=== PATIENT | female | born 1965 | race Two or more races ===

== ENCOUNTER 2020-10-08 12:23 | Outpatient (REF) | payer MEDICAID, SELFPAY ==
--- NOTE | 2020-10-08 12:33 | XR_ITS ---
EXAMINATION: XR ELBOW, LEFT CLINICAL INFORMATION: Left elbow pain. COMPARISON: None TECHNIQUE: AP, lateral, and oblique views of the left elbow. FINDINGS: The bones and soft tissues are normal. No fracture or joint effusion. Alignment is anatomic. Joint spaces are maintained. XR/XR elbow LT min 3V IMPRESSION: Normal left elbow.
== END 2020-10-08 12:24 | disposition home or self-care (01) ==
LOC: HO.XRAY 12:23
PROVIDERS: PCP Internal Medicine; Visit Provider Emergency Medicine
DX: M25.522 Pain in left elbow (principal)
CPT/HCPCS: 73080

== ENCOUNTER → 2020-10-19 08:02 | Outpatient (REF) | payer MEDICAID, SELFPAY | LOC: HO.SL 08:02 | PROVIDERS: Visit Provider Physician Assistant Medical | DX: R40.0 Somnolence (principal) | CPT/HCPCS: 95806 ==

== ENCOUNTER 2020-11-09 10:18 | Outpatient (REF) | payer MEDICAID, SELFPAY ==
--- NOTE | 2020-11-09 | XR_ITS ---
EXAMINATION: XR KNEE, LEFT CLINICAL INFORMATION: Pain COMPARISON: Previous x-ray April and May 2020 TECHNIQUE: Four views of the left knee. FINDINGS: Bone alignment is normal. No fracture or dislocation is seen. There are small osteophytes at the medial femoral tibial and patellofemoral joints. There is a small osteophyte at the quadriceps tendon insertion to the patella. There is no joint effusion. XR/XR knee LT 4V IMPRESSION: Mild degenerative changes.
== END 2020-11-09 10:19 | disposition home or self-care (01) ==
LOC: HO.XRAY 10:18
PROVIDERS: PCP Internal Medicine; Visit Provider Internal Medicine
DX: M25.562 Pain in left knee (principal)
CPT/HCPCS: 73564

== ENCOUNTER 2020-11-29 11:50 | Emergency (ER) | payer MEDICAID, SELFPAY ==
--- NOTE | 2020-11-29 12:29 | ED.FALL ---
HPI - Fall General Chief Complaint: Back Pain/Injury Stated Complaint: back pain Time Seen by Provider: 11/29/20 12:29 History of Present Illness HPI Narrative: Patient slipped and fell on the ice on the sidewalk and fell hitting her left knee and hurting her lower back, no numbness no weakness no paresthesias, she did not hit her head, she did not have any loss of consciousness she is not on any blood thinners and she has no neck pain Related Data Previous Rx's Medication Instructions Recorded cyclobenzaprine 5 mg PO TID PRN #10 tab 11/29/20 Allergies Allergy/AdvReac Type Severity Reaction Status Date / Time Penicillins Allergy Severe RASH, Unverified 08/05/20 17:46 SWELLING penicillin V Allergy Unknown rash Verified 09/18/18 00:00 Review of Systems Review of Systems: Positive for low back pain and left knee pain negatives are no head injury no headache no nausea no dizziness, no preceding symptoms, no fainting or feeling faint, no numbness no weakness no paresthesias no chest pain no abdominal pain no urinary symptoms no changes to bowel or bladder no incontinence PMFSH Past Medical History Medical History (Updated 11/30/20 @ 00:01 by Background Danoe) HTN (hypertension) Hypoglycemia Social History Social History Advance Directives: No Advance Directives Information Provided: Yes Physical Exam Vital Signs: Vital Signs: Last Vital Signs Temp 98.7 F 11/29/20 12:31 Pulse 77 11/29/20 12:31 Resp 16 11/29/20 12:31 BP 146/72 H 11/29/20 12:31 Pulse Ox 96 11/29/20 12:31 Body Mass Index 32.5 General appearance a and O x3, comfortable, cooperative The head is normocephalic atraumatic The neck is supple and nontender The chest is clear to auscultation bilaterally and chest wall is nontender The abdomen is soft nontender The back had diffuse lower lumbar tenderness, no focal bony tenderness no CVA tenderness The extremities there was tenderness to diffusely around the left knee joint which had a good range of motion flexing to 90 extending to 180 no obvious effusion no deformity, patient could do a straight leg raise no evidence of quadriceps or patellar tendon injury, patient could walk with the assistance of her cane which she uses at baseline Neuro no focal deficits, motor is 5/5 x4 and sensation is intact and symmetrical Course Course Course Narrative: X-rays of left knee and lower back did not reveal any acute emergent finding, there was some arthritis in the left knee Discharge Plan Discharge Clinical Impression: Strain of lumbar region, Contusion of knee, left Patient Disposition: Home, Self-Care Additional Instructions: X-rays of left knee and back did not show any broken bones but they did show arthritis of the left knee so follow with orthopedic doctor Return any concerns Prescriptions: New cyclobenzaprine 5 mg tablet 5 mg PO TID PRN (Reason: muscle spasm) Qty: 10 RF: 0 Interventions: ED Discharge Assessment Last Done: 11/29/20 14:05 Discharge Date/Time: 11/29/20 14:06
--- NOTE | 2020-11-29 12:30 | XR_ITS ---
EXAMINATION: LEFT KNEE. LUMBAR SPINE. CLINICAL INFORMATION: Fall. Pain. COMPARISON: None TECHNIQUE: 4 views left knee. Lumbar spine 3 views.. FINDINGS: LEFT KNEE: There is loss of medial and patellofemoral compartment joint space with periarticular spurring. There is mild superior patellar spurring. There is no visible acute fracture, dislocation or subluxation. No joint suprapatellar effusion seen. LUMBAR SPINE: There is normal lumbar lordosis. The the vertebral heights and alignment is normal. The disc heights are preserved. No fracture, lytic or sclerotic process seen. The paravertebral soft tissues are normal. XR/XR knee LT 3V IMPRESSION: Mild degenerative changes medial and patellofemoral compartments with periapical spurring. No loose bodies or acute fracture seen.
--- NOTE | 2020-11-29 12:30 | XR_ITS ---
EXAMINATION: LEFT KNEE. LUMBAR SPINE. CLINICAL INFORMATION: Fall. Pain. COMPARISON: None TECHNIQUE: 4 views left knee. Lumbar spine 3 views.. FINDINGS: LEFT KNEE: There is loss of medial and patellofemoral compartment joint space with periarticular spurring. There is mild superior patellar spurring. There is no visible acute fracture, dislocation or subluxation. No joint suprapatellar effusion seen. LUMBAR SPINE: There is normal lumbar lordosis. The the vertebral heights and alignment is normal. The disc heights are preserved. No fracture, lytic or sclerotic process seen. The paravertebral soft tissues are normal. XR/XR lumbar spine 2-3V IMPRESSION: Mild degenerative changes medial and patellofemoral compartments with periapical spurring. No loose bodies or acute fracture seen.
[2020-11-29 12:31] VITALS: BP 146/72; BP 176/78; PULSE 77; PULSE 96; RESP 16; TEMP 37.1; O2SAT 96; BMI 32.5
== END 2020-11-29 14:06 | disposition home or self-care (01) ==
PROVIDERS: Emergency Provider Emergency Medicine
DX: S39.012A Strain of muscle, fascia and tendon of lower back, initial encounter (principal); S80.02XA Contusion of left knee, initial encounter; W00.0XXA Fall on same level due to ice and snow, initial encounter; M17.12 Unilateral primary osteoarthritis, left knee; I10 Essential (primary) hypertension; Y93.89 Activity, other specified; Y92.480 Sidewalk as the place of occurrence of the external cause; Y99.9 Unspecified external cause status
CPT/HCPCS: 72100; 73562; 99283

== ENCOUNTER 2020-12-13 09:00 | Outpatient (RCR) | payer MEDICAID, SELFPAY ==
--- NOTE | 2020-11-09 10:04 | MHC.PT.EP ---
[facility] [place] [facility] [place] [facility] [address] Alana Massey [address] [phone] F: [phone] F: [phone] F: [phone] F: [phone] Physical Therapy Plan of Care Date of Evaluation: 11/09/20 Date of Surgery: Diagnosis: Chronic pain of left knee Assessment: 55 y/o F referred to PT with chronic L knee pain. She has had L knee pain > 11 years of insidious onset. She ambulates with SPC for 5 years and ascend/descends stairs in step-tp pattern. 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 Reports pain with transitional movements, walking, stairs, sleeping, and functional mobility. Examination shows decreased L knee AROM, decreased lumbar AROM, decreased B LE strength, increased pain, tenderness to light touch throughout L knee, and poor functional mobility. Recommend PT 2x/week for 5 weeks to address impairments, implement HEP, and optimize funcitonal mobility. POC to include LE A/AAROM, strengthening, gait training, functional mobility, and pain management. Frequency and Duration: The patient will be seen 2x/week for 5 weeks Short Term Goals: 3 weeks: 1. I with HEP 2. Demonstrate L knee AROM 0-5-115 Penitentiary Goals: 5 weeks: 1. Pt will be able to ascend stairs in step through pattern with rail and SPC 2. Pt will demonstrate improved gait pattern with normal LAKESHA, heel strike B, and L knee flexion during L swing Treatment Plan: Modalities to reduce pain, spasms and effusion. Manual therapy to restore motion and function. Therapeutic exercise to improve strength and flexibility. Neuromuscular re-education for posture and balance. Therapeutic activities to return to functional activities of daily living. Electronically signed by: Massiel Coronado PT Please sign and return to therapist. Thank you for your referral.
== END 2020-12-22 11:54 | disposition other institution (70) ==
LOC: HO.PT 09:00
PROVIDERS: PCP Internal Medicine; Visit Provider Internal Medicine
DX: M25.562 Pain in left knee (principal); G89.29 Other chronic pain
CPT/HCPCS: 97110; 97162; 97530

== ENCOUNTER 2021-02-19 09:53 | Emergency (ER) | payer MEDICAID, SELFPAY ==
--- NOTE | ~2021-02-19 | XR_ITS ---
EXAMINATION: XR knee RT 4V CLINICAL INFORMATION: Reason for Exam pain COMPARISON: None available at the time of this dictation. TECHNIQUE: Frontal lateral obliques FINDINGS: BONES: No fracture or dislocation is present. JOINTS: Narrowing of joint spaces and developed osteophytes from the edges of articular surfaces suggest degenerative osteoarthritis. SOFT TISSUE: Normal XR/XR knee RT 4V IMPRESSION: Mild degenerative osteoarthritis medial compartment. No knee joint effusion.
[2021-02-19 10:04] VITALS: BP 131/87; PULSE 102; PULSE 92; RESP 17; TEMP 36.3; O2SAT 96; BMI 30.9
--- NOTE | 2021-02-19 10:37 | ED.GENADULT ---
HPI - General Adult General Chief complaint: Back Pain/Injury Stated complaint: knee pain Time Seen by Provider: 02/19/21 10:23 History of Present Illness HPI narrative: Patient complains of right knee pain for several days and now her back is hurting a lot too, she has a long history of intermittent episodes of back pain and knee pain, there is no new injury there was no trauma no fever no chills no numbness no weakness no radiation of her back pain and no change to bowel or bladder Related Data Previous Rx's Medication Instructions Recorded cyclobenzaprine 5 mg PO TID PRN #10 tab 11/29/20 ibuprofen 600 mg PO Q6H PRN #20 tab 02/19/21 oxycodone-acetaminophen [Percocet] 1 tab PO Q6H PRN #14 tab 02/19/21 Allergies Allergy/AdvReac Type Severity Reaction Status Date / Time Penicillins Allergy Severe RASH, Verified 02/19/21 10:09 SWELLING penicillin V Allergy Unknown rash Verified 02/19/21 10:09 Review of Systems Review of Systems: Positive for right back and right knee pain Negatives are no fever no chills no dizziness no weakness no numbness weakness or tingling, no changes to bowel or bladder no chest pain no abdominal pain no burning with urination no frequency of urination no incontinence no rash, no loss of sensation Yes all other systems are reviewed and are negative [facility] Past Medical History Source: nursing notes reviewed Medical History (Updated 02/20/21 @ 00:01 by Background Daemon) HTN (hypertension) Hypoglycemia Physical Exam Vital Signs: Vital Signs: Last Vital Signs Temp 97.3 F 02/19/21 10:04 Pulse 92 02/19/21 10:04 Resp 17 02/19/21 11:41 BP 131/87 02/19/21 10:04 Pulse Ox 96 02/19/21 10:04 Body Mass Index 30.9 General appearance no acute distress,, and cooperative Head is normocephalic atraumatic The neck is supple and nontender Respiratory no distress The back had right sided soft tissue paraspinal tenderness, skin was normal in appearance, there is no bony tenderness no CVA tenderness no redness or warmth no herpetic lesion no rash Right knee is tender but not swollen not red or warm it extends to 180 at flexes past 90, gait she walks with a limping gait Skin no rash Neuro no focal deficit Course Course Course Narrative: X-ray of the right knee confirmed osteoarthritis no acute finding, lumbar spine x-ray from previous visit 3 months ago showed some arthritis in the back but again no acute findings and as there is no new injury or trauma between these visits no further back imaging was done Patient is advised her back pain might be aggravated by the limping gait and is advised to follow with orthopedist and primary doctor Discharge Plan Discharge Clinical Impression: Osteoarthritis of right knee, Back strain Patient Disposition: Home, Self-Care Additional Instructions: Follow with primary doctor for back pain and orthopedist for the knee X-ray showed arthritis Return any time any concerns Prescriptions: New oxycodone-acetaminophen [Percocet] 5-325 mg tablet 1 tab PO Q6H PRN (Reason: pain) Qty: 14 RF: 0 ibuprofen 600 mg tablet 600 mg PO Q6H PRN (Reason: pain) Qty: 20 RF: 0 No Action cyclobenzaprine 5 mg tablet 5 mg PO TID PRN (Reason: muscle spasm) Qty: 10 RF: 0 Referrals: Rafi Parham MD [Physician] - 2 days (Right knee arthritis pain, possible steroid shot) Interventions: ED Discharge Assessment Last Done: 02/19/21 12:07 Discharge Date/Time: 02/19/21 12:09
[2021-02-19] MEDS: Ketorolac Tromethamine 30 MG/ML VIAL IM (10:54)
[2021-02-19] MEDS: LORazepam 1 MG TABLET PO (10:55)
[2021-02-19] MEDS: oxyCODONE HCl Immed Release 5 MG TABLET PO ×2 (10:55)
--- NOTE | 2021-02-19 11:12 | PC.NURSE ---
PT USING VIDEO ON PHONE TALKING WITH FAMILY MEMBERS AND LAUGHING AT TIMES. SEVERAL MINUTES LATER WHEN THIS RN WALKS BY ROOM, PT IS MOANING AND YELLING OUT LOUD I NEED SOME JUICE. PO FLUIDS PROVIDED.
[2021-02-19 11:40] VITALS: RESP 17
[2021-02-19 11:41] VITALS: RESP 17
== END 2021-02-19 12:09 | disposition home or self-care (01) ==
PROVIDERS: Emergency Provider Emergency Medicine; PCP Internal Medicine
DX: M17.11 Unilateral primary osteoarthritis, right knee (principal); S39.012A Strain of muscle, fascia and tendon of lower back, initial encounter; X58.XXXA Exposure to other specified factors, initial encounter; Y93.9 Activity, unspecified; Y92.9 Unspecified place or not applicable; Y99.9 Unspecified external cause status
CPT/HCPCS: 73564; 96374; 99284; J1885

== ENCOUNTER 2021-03-11 07:32 | Outpatient (REF) | payer MEDICAID, SELFPAY ==
--- NOTE | ~2021-03-11 | XR_ITS ---
EXAMINATION: XR KNEE, BILATERAL XR KNEE, RIGHT CLINICAL INFORMATION: Knee pain. COMPARISON: X-ray right knee 02/19/2021 TECHNIQUE: Bilateral knees 1 view. Right knee 1 view. FINDINGS: Right knee: Mild medial compartment arthritis. Mild spurring in the patellofemoral compartment. No fracture or dislocation. Left knee: Mild medial compartment arthritis. Marginal spurring in the lateral compartment. XR/XR knee standing BI IMPRESSION: Right knee: Mild medial compartment osteoarthritis. Left knee: Osteoarthritic changes, as above.
--- NOTE | ~2021-03-11 | XR_ITS ---
EXAMINATION: XR KNEE, BILATERAL XR KNEE, RIGHT CLINICAL INFORMATION: Knee pain. COMPARISON: X-ray right knee 02/19/2021 TECHNIQUE: Bilateral knees 1 view. Right knee 1 view. FINDINGS: Right knee: Mild medial compartment arthritis. Mild spurring in the patellofemoral compartment. No fracture or dislocation. Left knee: Mild medial compartment arthritis. Marginal spurring in the lateral compartment. XR/XR knee RT 2V IMPRESSION: Right knee: Mild medial compartment osteoarthritis. Left knee: Osteoarthritic changes, as above.
== END 2021-03-11 07:33 | disposition home or self-care (01) ==
LOC: HO.HOSX 07:32
PROVIDERS: Visit Provider Physician Assistant
DX: M25.562 Pain in left knee (principal); M25.561 Pain in right knee; M17.11 Unilateral primary osteoarthritis, right knee
CPT/HCPCS: 20610; 73560; 73565; 99202; J1040

== ENCOUNTER 2021-05-31 09:57 | Outpatient (REF) | payer MEDICAID, SELFPAY ==
--- NOTE | ~2021-05-31 | MM_ITS ---
EXAMINATION: MM SCREENING DIGITAL BREAST TOMOSYNTHESIS, BILATERAL CLINICAL INFORMATION: Screening. Asymptomatic. Prior right stereotactic biopsy 2008, mid 6:00 right breast, no clip placement. The lifetime risk of breast cancer based on the Tyrer-Cuzick Model is 6%. COMPARISON: Mammography: 07/11/2018, 12/02/2015, 05/11/2014 TECHNIQUE: Digital breast tomosynthesis is performed in both the craniocaudal and mediolateral oblique views along with computer-aided detection (CAD). Synthesized 2D images are generated from the tomosynthesis. FINDINGS: There are scattered areas of fibroglandular density (ACR BI-RADS breast composition Category b). There are no significant masses, abnormal calcifications, or other abnormalities. No developing density. There are stable grouped punctate calcifications mid 6:00 right breast, previously sampled in 2008 (no clip placement). The axilla and skin contours are unremarkable. MM/MM tomosynthesis screening BI IMPRESSION: No mammographic evidence of malignancy. ASSESSMENT: BI-RADS 2: Benign RECOMMENDATION: Routine annual mammography screening. This patient's information was entered into a reminder system with a target due date for their next mammogram.
== END 2021-05-31 09:58 | disposition home or self-care (01) ==
LOC: HO.MAMMO 09:57
PROVIDERS: Visit Provider Internal Medicine
DX: Z12.31 Encounter for screening mammogram for malignant neoplasm of breast (principal)
CPT/HCPCS: 77063; 77067

== ENCOUNTER → 2022-08-07 13:56 | Outpatient (BNVA) | payer MEDICAID, SELFPAY | PROVIDERS: PCP Internal Medicine; Visit Provider Physician Assistant | DX: M17.0 Bilateral primary osteoarthritis of knee (principal) | CPT/HCPCS: 99212 ==

== ENCOUNTER 2022-10-16 11:26 | Outpatient (REF) | payer MEDICAID, SELFPAY ==
--- NOTE | ~2022-10-16 | XR_ITS ---
EXAMINATION: XR FOOT, LEFT CLINICAL INFORMATION: Pain COMPARISON: None TECHNIQUE: AP, lateral, and oblique views of the left foot. FINDINGS: Bone alignment is normal. No fracture or dislocation. Normal joint spaces. Soft tissue calcification adjacent to the first metatarsal head. Small plantar calcaneal spur. XR/XR foot LT min 3V IMPRESSION: Small plantar calcaneal spur and soft tissue calcification adjacent to the first metatarsal head.
== END 2022-10-16 11:27 | disposition home or self-care (01) ==
LOC: HO.XRAY 11:26
PROVIDERS: Visit Provider Nurse Practitioner Family
DX: M17.0 Bilateral primary osteoarthritis of knee (principal); M79.672 Pain in left foot
CPT/HCPCS: 73630; 99202

== ENCOUNTER 2022-11-16 06:37 | Emergency (ER) | payer MEDICAID, SELFPAY ==
--- NOTE | ~2022-11-16 | XR_ITS ---
EXAMINATION: XR CHEST CLINICAL INFORMATION: Chest pain COMPARISON: None TECHNIQUE: Frontal view of the chest was obtained. FINDINGS: No significant abnormality is noted involving the heart, lungs, mediastinum, bony thorax or soft tissues. XR/XR chest 1V IMPRESSION: Unremarkable chest examination.
[2022-11-16 06:41] VITALS: BP 178/90; PULSE 118; O2SAT 98
[2022-11-16 07:03] VITALS: BP 143/89; PULSE 123; RESP 16; TEMP 36.8; O2SAT 98; BMI 33.7
--- NOTE | 2022-11-16 07:05 | ECG_ITS ---
Test Reason : CHEST PAIN Blood Pressure : / mmHG Vent. Rate : 113 BPM Atrial Rate : 113 BPM P-R Int : 118 ms QRS Dur : 080 ms QT Int : 326 ms P-R-T Axes : 067 044 054 degrees QTc Int : 447 ms Sinus tachycardia Biatrial enlargement Nonspecific ST abnormality Abnormal ECG When compared with ECG of 16-SEP-2019 00:27, Non-specific change in ST segment in Inferior leads Referred By: Generic ED Physician Electronically Signed By:ROBERT PECK MD
[2022-11-16 07:24] LABS: Hematocrit 45.6 % (37.0-47.0); Hemoglobin 15.3 g/dl (12.0-16.0); Mean Corpuscular HGB Conc 33.6 g/dl (31.0-35.0); Mean Corpuscular Hemoglobin 30.9 pg (27.0-33.0); Mean Corpuscular Volume 92.1 fL (80.0-98.0); Mean Platelet Volume 10.2 fL (9.4-12.3); Platelet Count 286 X10*3/uL (160-400); Red Blood Count 4.95 X10*6/uL (4.20-5.50); Red Cell Distribution Width 12.6 % (11.0-16.0)
[2022-11-16 07:28] LABS: WBC ABN SCTR FOR CBC 1; White Blood Count 10.5 X10*3/uL (4.8-10.8)
--- NOTE | 2022-11-16 07:35 | ED_ITS ---
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 She has had a positive sick contact. Related Data Home Medications Medication Instructions Recorded Confirmed aspirin 325 mg tablet 325 mg PO DAILY 03/11/21 atorvastatin 10 mg tablet 10 mg PO DAILY 03/11/21 aripiprazole 10 mg tablet 10 mg PO QAM 08/07/22 aspirin 81 mg tablet,delayed 81 mg PO DAILY 08/07/22 release atorvastatin 40 mg tablet 40 mg PO DAILY 08/07/22 cholecalciferol (vitamin D3) 25 25 mcg PO DAILY 08/07/22 mcg (1,000 unit) tablet clonazepam 1 mg tablet 1 mg PO BEDTIME 08/07/22 diltiazem HCl 240 mg 240 mg PO DAILY 08/07/22 capsule,extended release 24 hr docusate sodium 100 mg capsule 100 mg PO BID 08/07/22 fluticasone propionate 110 1 puff inhalation BID 08/07/22 mcg/actuation HFA aerosol inhaler (Flovent HFA) fluticasone propionate 50 2 spray intranasal DAILY 08/07/22 mcg/actuation nasal spray,suspension losartan 50 mg tablet 50 mg PO DAILY 08/07/22 omeprazole 20 mg capsule,delayed 20 mg PO DAILY 08/07/22 release spironolactone 100 mg tablet 100 mg PO DAILY 08/07/22 08/07/22 sumatriptan succinate 100 mg tablet 0 mg PO 08/07/22 albuterol sulfate 90 mcg/actuation 2 puff inhalation Q6H PRN wheezing 10/16/22 aerosol inhaler (Proventil HFA) Previous Rx's Medication Instructions Recorded benzonatate 200 mg capsule 200 mg PO TID PRN cough #20 caps 11/16/22 Allergies Allergy/AdvReac Type Severity Reaction Status Date / Time Penicillins Allergy Severe RASH, Verified 10/16/22 10:56 SWELLING penicillin V Allergy Unknown rash Verified 10/16/22 10:56 Review of Systems Review of Systems: Pertinent positives and negatives as stated in HPI. PMFSH Past Medical History Source: nursing notes reviewed Medical History HTN (hypertension) Hypoglycemia Surgical History H/O: hysterectomy Social History Social History Advance Directives: No Advance Directives Information Provided: Yes Current occupational status: disabled Current occupation: right handed Physical Exam ED Vital Signs: Vital Signs - 24 hr 11/16/22 07:03 Temperature 98.2 F Pulse Rate 123 H Respiratory Rate 16 Blood Pressure 143/89 H Pulse Oximetry 98 Oxygen Delivery Method Room Air BMI result Body Mass Index 33.7 VITAL SIGNS: Reviewed. GENERAL: Well developed, well nourished, in no acute distress. HEAD: Normocephalic/atraumatic EYES: PERRLA, EOMI EARS: Ext canals without abnormality, TMs non-bulging and non-erythematous NOSE: Nares patent bilateral OROPHARYNX: no oral lesions noted, posterior pharynx clear and non-erythematous without noted tonsillar enlargement/erythema/exudates NECK: Supple, no adenopathy LUNGS: Normal breath sounds. No adventitious sounds or accessory muscle use. SpO2<98> CARDIOVASCULAR: Regular rate and rhythm without noted murmurs, no JVD or lower extremity edema. ABDOMEN: Soft, non-tender, non-distended with bowel sounds. MUSCULOSKELETAL: No tenderness, deformities, or effusions noted on gross inspection. EXTREMITIES: No cyanosis, clubbing or edema. SKIN: Inspection of the skin reveals no rashes NEUROLOGIC: Alert and oriented x 3. Strength and sensation to light touch were grossly intact x 4. Medications Administered Discontinued Medications Generic Name Dose Route Start Last Admin Trade Name Freq PRN Reason Stop Dose Admin Acetaminophen 975 mg 11/16/22 07:58 11/16/22 08:03 Acetaminophen 325 Mg Tablet PO 11/16/22 07:59 975 mg ONCE ONE Administration Benzonatate 200 mg 11/16/22 07:58 11/16/22 08:03 Benzonatate 100 Mg Capsule PO 11/16/22 07:59 200 mg ONCE ONE Administration Ibuprofen 400 mg 11/16/22 07:58 11/16/22 08:03 Ibuprofen 400 Mg Tablet PO 11/16/22 07:59 400 mg ONCE ONE Administration Medical Decision Making Medical Decision Making [facility] Narrative: 57-year-old female with a positive sick contact in suspect that this is a viral illness but will obtain basic labs, imaging, EKG. 0906: Have reviewed all investigations, there is no leukocytosis or left shift, there is no electrolyte abnormality, renal function is intact there is a slight bump of patient's BNP and she will receive 40 mg of p.o. Lasix although there is no evidence on chest x-ray of pulmonary congestion on clinical exam there are findings suspicious for concomitant mild exacerbation with suspected underlying viral illness, otherwise patient is positive for COVID-19. She is oxygenating well on room air, she is not tachypneic but still remains with a cough and will be sent with a prescription for cough medication. She was informed of all results and plans. Differential Diagnosis I will rule out pneumonia, viral illness, cardiac etiology although this is less suspected. Lab Data MDM Lab Attestation statement: I reviewed the patient's lab results. Please see the discussion above Result Diagrams: 11/16/22 07:17 11/16/22 07:17 Labs: Lab Results 11/16/22 11/16/22 11/16/22 Range/Units 07:17 07:17 07:17 WBC 10.5 (4.8-10.8) X10*3/uL RBC 4.95 (4.20-5.50) X10*6/uL Hgb 15.3 (12.0-16.0) g/dl Hct 45.6 (37.0-47.0) % MCV 92.1 (80.0-98.0) fL MCH 30.9 (27.0-33.0) pg MCHC 33.6 (31.0-35.0) g/dl RDW 12.6 (11.0-16.0) % Plt Count 286 (160-400) X10*3/uL MPV 10.2 (9.4-12.3) fL Immature Gran % (Auto) Cancelled Neut % (Auto) Cancelled Lymph % (Auto) Cancelled [place] % (Auto) Cancelled Eos % (Auto) Cancelled Baso % (Auto) Cancelled Lymph # (Auto) Cancelled [place] # (Auto) Cancelled Eos # (Auto) Cancelled Baso # (Auto) Cancelled Abs Immat Gran (auto) Cancelled Absolute Neuts (auto) Cancelled Absolute Nucleated RBC 0.000 (0.0-0.012) X10*3/uL Nucleated RBC % (auto) 0.0 (0.0-0.2) /100WBC Neutrophils % (Manual) 83 H (45-73) % Band Neutrophils % 2 L (3-5) % Lymphocytes % (Manual) 3 L (20-40) % Monocytes % (Manual) 12 H (2-11) % Abs Neuts (Manual) 8.9 H (2.0-8.3) X10*3/uL Lymphocytes # (Manual) 0.3 L (1.2-4.9) X10*3/uL Monocytes # (Manual) 1.3 H (0.1-1.2) X10*3/uL Toxic Vacuolation PRESENT Platelet Estimate NORMAL (NORMAL) Plt Morphology Comment NORMAL RBC Morphology NORMAL Sodium 140 (135-145) mmol/L Potassium 4.2 (3.3-5.1) mmol/L Chloride 103 (96-108) mmol/L Carbon Dioxide 27 (22-29) mmol/L Anion Gap 14 (12-20) BUN 7 L (9-16) mg/dL Creatinine 0.99 (0.5-1.4) mg/dL Estim Creat Clear Calc 68.6 Estimated GFR 57 Random Glucose 134 H (60-115) mg/dL Calcium 9.3 (8.4-10.2) mg/dL B-Natriuretic Peptide (<100) pg/mL Influenza Type A (PCR) NEGATIVE (Negative) Influenza Type B (PCR) NEGATIVE (Negative) RSV RNA Qual (PCR) NEGATIVE (Negative) SARS-CoV-2 RNA (RT-PCR) POSITIVE A (Negative) 11/16/22 Range/Units 07:17 WBC (4.8-10.8) X10*3/uL RBC (4.20-5.50) X10*6/uL Hgb (12.0-16.0) g/dl Hct (37.0-47.0) % MCV (80.0-98.0) fL MCH (27.0-33.0) pg MCHC (31.0-35.0) g/dl RDW (11.0-16.0) % Plt Count (160-400) X10*3/uL MPV (9.4-12.3) fL Immature Gran % (Auto) Neut % (Auto) Lymph % (Auto) [place] % (Auto) Eos % (Auto) Baso % (Auto) Lymph # (Auto) [place] # (Auto) Eos # (Auto) Baso # (Auto) Abs Immat Gran (auto) Absolute Neuts (auto) Absolute Nucleated RBC (0.0-0.012) X10*3/uL Nucleated RBC % (auto) (0.0-0.2) /100WBC Neutrophils % (Manual) (45-73) % Band Neutrophils % (3-5) % Lymphocytes % (Manual) (20-40) % Monocytes % (Manual) (2-11) % Abs Neuts (Manual) (2.0-8.3) X10*3/uL Lymphocytes # (Manual) (1.2-4.9) X10*3/uL Monocytes # (Manual) (0.1-1.2) X10*3/uL Toxic Vacuolation Platelet Estimate (NORMAL) Plt Morphology Comment RBC Morphology Sodium (135-145) mmol/L Potassium (3.3-5.1) mmol/L Chloride (96-108) mmol/L Carbon Dioxide (22-29) mmol/L Anion Gap (12-20) BUN (9-16) mg/dL Creatinine (0.5-1.4) mg/dL Estim Creat Clear Calc Estimated GFR Random Glucose (60-115) mg/dL Calcium (8.4-10.2) mg/dL B-Natriuretic Peptide 108 H (<100) pg/mL Influenza Type A (PCR) (Negative) Influenza Type B (PCR) (Negative) RSV RNA Qual (PCR) (Negative) SARS-CoV-2 RNA (RT-PCR) (Negative) Independent Interpretation I performed an independent interpretation of an: EKG Interpretation: Sinus tachycardia, HR-113, no STEMI, ID/QRS/QTC are within normal limits with nonspecific ST abnormality. Discharge Plan Discharge Clinical Impression: Viral syndrome, Lab test positive for detection of COVID-19 virus, Pulmonary congestion Patient Disposition: Home, Self-Care Instructions: Viral Syndrome (ED), COVID-19 (Coronavirus Disease 2019) (ED) Additional Instructions: 1. Reanudar todos los medicamentos caseros seg?n lo prescrito. 2. Tiene COVID-19 y debe aislarse josé miguel los pr?ximos 5 d?as y luego seguir todas las pautas estatales/federales/CDC. 3. Mant?ngase shawanda hidratado, usando Tylenol/ibuprofeno de venta joo para johanna corporales, johanna de [place], temperaturas superiores a 100.4. 4. He enviado pelon receta para un medicamento para la tos a bar farmacia, t?lorie seg?n lo prescrito. 5. Seguimiento con bar proveedor de atenci?n primaria en los pr?ximos 2 o 3 d?as, probablemente a ary?s de pelon chantelle de telemedicina. Regrese a la venkatesh de emergencias si dimitri s?ntomas empeoran. 1. Resume all home medications as prescribed. 2. You have COVID-19 and must isolate for the next 5 days and then follow all state/Federal/CDC guidelines. 3. Remain well hydrated, using aiaj-hck-eyhzafv Tylenol/ibuprofen for body aches, headaches, temperatures greater than 100.4. 4. I have sent a prescription for cough medication to your pharmacy please take it as prescribed. 5. Follow-up with your primary care provider in the next 2-3 days, probably via telemedicine appointment. Return to the ER for any worsening of your symptoms. Prescriptions: New benzonatate 200 mg capsule 200 mg PO TID PRN (Reason: cough) Qty: 20 0RF No Action atorvastatin 10 mg tablet 10 mg PO DAILY aspirin 325 mg tablet 325 mg PO DAILY fluticasone propionate [Flovent HFA] 110 mcg/actuation HFA aerosol inhaler 1 puff inhalation BID fluticasone propionate 50 mcg/actuation spray,suspension 2 spray intranasal DAILY aripiprazole 10 mg tablet 10 mg PO QAM aspirin 81 mg tablet,delayed release (DR/EC) 81 mg PO DAILY docusate sodium 100 mg capsule 100 mg PO BID clonazepam 1 mg tablet 1 mg PO BEDTIME diltiazem HCl 240 mg capsule,extended release 24hr 240 mg PO DAILY sumatriptan succinate 100 mg tablet 0 mg PO atorvastatin 40 mg tablet 40 mg PO DAILY losartan 50 mg tablet 50 mg PO DAILY omeprazole 20 mg capsule,delayed release(DR/EC) 20 mg PO DAILY cholecalciferol (vitamin D3) 25 mcg (1,000 unit) tablet 25 mcg PO DAILY spironolactone 100 mg tablet 100 mg PO DAILY albuterol sulfate [Proventil HFA] 90 mcg/actuation HFA aerosol inhaler 2 puff inhalation Q6H PRN (Reason: wheezing) Referrals: [place] [Primary Care Provider] - Print Language: Panamanian
[2022-11-16 07:37] LABS: Anion Gap 14 (12-20); Blood Urea Nitrogen 7 mg/dL (9-16); Calcium 9.3 mg/dL (8.4-10.2); Carbon Dioxide 27 mmol/L (22-29); Chloride 103 mmol/L (96-108); Creatinine Clr Calc Pharmacy 68.6; Estimated Glomerular Filt Rate 57; Glucose Random 134 mg/dL (60-115); Potassium 4.2 mmol/L (3.3-5.1); Sodium 140 mmol/L (135-145)
[2022-11-16 07:51] LABS: Band Neutrophils Percent 2 % (3-5); Lymphocytes Absolute Manual 0.3 X10*3/uL (1.2-4.9); Lymphocytes Percent Manual 3 % (20-40); Monocytes Absolute Manual 1.3 X10*3/uL (0.1-1.2); Monocytes Percent Manual 12 % (2-11); Neutrophils Absolute Manual 8.9 X10*3/uL (2.0-8.3); Neutrophils Percent Manual 83 % (45-73)
[2022-11-16 07:52] LABS: Platelet Estimate NORMAL (NORMAL); Platelet Morphology Comment NORMAL; RBC Morphology NORMAL
[2022-11-16 07:53] LABS: Toxic Vacuolation PRESENT
[2022-11-16] MEDS: Ibuprofen 400 MG TABLET PO (08:03)
[2022-11-16] MEDS: Benzonatate 100 MG CAPSULE 200 MG PO (08:03)
[2022-11-16] MEDS: Acetaminophen 325 MG TABLET 975 MG PO (08:03)
[2022-11-16 08:09] LABS: Influenza A PCR NEGATIVE (Negative); Influenza B PCR NEGATIVE (Negative); Resp Syncy Virus RNA Qual PCR NEGATIVE (Negative); SARS COV2 PCR INHOUSE POSITIVE (Negative)
[2022-11-16 08:50] LABS: B Type Natriuretic Peptide 108 pg/mL (<100)
[2022-11-16] MEDS: Furosemide 40 MG TABLET PO (09:12)
[2022-11-16 09:17] VITALS: BP 162/82; PULSE 102; RESP 24; TEMP 37.4; O2SAT 98
[2022-11-16 09:47] LABS: Troponin-I High Sensitivity 3.7 ng/L (<3.5-17.0)
== END 2022-11-16 09:51 | disposition home or self-care (01) ==
PROVIDERS: Emergency Provider Student in an Organized Health Care Education/Training Program
DX: U07.1 COVID-19 (principal); R09.89 Other specified symptoms and signs involving the circulatory and respiratory systems; I10 Essential (primary) hypertension
CPT/HCPCS: 0241U; 71045; 80048; 83880; 84484; 85007; 85027; 93005; 99283; 99284

== ENCOUNTER → 2023-03-23 09:11 | Outpatient (BNVA) | payer MEDICAID, SELFPAY | PROVIDERS: PCP Internal Medicine; Visit Provider Internal Medicine ==

== ENCOUNTER 2023-05-02 06:04 | Outpatient (REF) | payer MEDICAID, SELFPAY | END 2023-05-02 06:05 | disposition home or self-care (01) | LOC: CF 06:04 | PROVIDERS: Visit Provider Internal Medicine | DX: M25.562 Pain in left knee (principal) | CPT/HCPCS: 64447; J1100 ==

== ENCOUNTER 2023-05-09 06:11 | Outpatient (REF) | payer MEDICAID, SELFPAY | END 2023-05-09 06:12 | disposition home or self-care (01) | LOC: CF 06:11 | PROVIDERS: Visit Provider Internal Medicine | DX: M25.561 Pain in right knee (principal) | CPT/HCPCS: 64447 ==

== ENCOUNTER → 2023-05-11 10:02 | Outpatient (BNVA) | payer MEDICAID, SELFPAY | PROVIDERS: PCP Internal Medicine; Visit Provider Nurse Practitioner Family | DX: M17.0 Bilateral primary osteoarthritis of knee (principal); M25.562 Pain in left knee; M25.561 Pain in right knee; M79.672 Pain in left foot | CPT/HCPCS: 99212 ==

== ENCOUNTER 2023-06-27 10:02 | Day surgery (SDC) | payer MEDICAID, SELFPAY ==
[2023-06-27 10:34] VITALS: BMI 33.6
[2023-06-27 10:43] VITALS: BP 167/80; PULSE 88; RESP 18; TEMP 36.1; O2SAT 98
[2023-06-27 11:57] VITALS: BP 144/78; PULSE 75; RESP 18; TEMP 36.4; O2SAT 98
--- NOTE | 2023-06-27 16:41 | P.BOP_ITS ---
Brief Operative Note Date of Service: 06/27/23 Pre-op diagnosis: Intractable right knee pain Post-op diagnosis: same Procedure: Temporary right saphenous nerve stimulator placement Implants: Sprint temporary PNS system Surgeon: Joe Hays MD Anesthesia: local Was an Instructor Military Science used for this Procedure?: No Estimated blood loss (mL): 1 Pathology: none sent Condition: stable Disposition: same day
--- NOTE | 2023-06-27 16:41 | MHC.SHP ---
Pre-Procedural Eval Section A Date of Service: 06/27/23 The patient is an INPATIENT: No Changes since office visit: Yes Patient answered all questions The History & Physical has been completed within 30 days and I have reviewed it.: No Section B Chief Complaint: Unilateral primary osteoarthritis, unspecified Relevant Family History (Specify if Yes): No Relevant Social History: None Present Medications: see Short Stay Collaborative assessment Medical History: No relevant PMH History of Previous Operations: No relevant previous surgery Allergies: Allergies Allergy/AdvReac Type Severity Reaction Status Date / Time Penicillins Allergy Severe RASH, Verified 05/11/23 10:20 SWELLING Review of Systems Sugical H&P ROS: Negative: Constitution, Cardiovascular and Respiratory Exam Surgical H&P Exam: Normal: HEENT, Normal: Heart and Normal: Lungs Plan Diagnosis/Plan: Unchanged I have reviewed the history and physical and performed a pertinent physical examination on my patient. No changes have occurred unless specified. Time Spent With Patient Time: Total time managing care of this patient today ____ minutes.
--- NOTE | 2023-06-27 16:42 | P.OP_ITS ---
Operative Note Operative Note Date of Service: 06/27/23 Narrative: Peripheral Nerve Stimulation Temporary Lead Placement, Ultrasound-Guided, Saphenous Nerve, right ? After the risks, benefits and alternatives were discussed with the patient and informed consentwas obtained, patient was placed in the supine position and padded to foster comfort. Appropriate skin and bony landmarks were identified, and pertinent vascular structures were located. The skin overlying the needle entry site was prepped and draped in sterile fashion. Ultrasound was used to identify the femoral artery, the femoral vein and the saphenous nerve. After identifying and marking the intended target along the course of the Saphenous nerve, the skin around the planned entry point and the subcutaneous tissues were injected with local anesthetic. An introducer needle and stimulating probe were assembled, inserted and advanced along the intended course of the saphenous; nerve, taking care to maintain the proper depth of insertion as the introducer was advanced under ultrasound guidance. The introducer needle was delivered to a location in proximity to the nerve taking care not to puncture the femoral artery or the vein. Multiple stimulation parameters were used to deliver stimulation to the saphenous nerve in concert with stimulating at multiple positions around the nerve. Nerve target acquisition was confirmed noting generation of sensory and mild motor effects (paresthesia, muscle tension, etc) in the medial knee, leg and ankle; corresponding to the distribution of the saphenous nerve. Various electrical parameter combinations were tested, and the lead location was adjusted (physic ally relocated under ultrasound guidance) until the patient indicated medial knee paresthesia and tension overlapping the distribution of the patient?s typical region of pain. The stimulating probe was removed from the introducer and a percutaneous lead was guided through the needle and delivered to a location in similar proximity to the nerve. Final location was verified with electrical stimulation and documented. The introducer needle was removed, and the exposed end of the percutaneous lead was attached to an external stimulator unit. Various electrical parameter combinations were again tested until the patient indicated paresthesia and muscle tension overlapping the distribution of the patient?s typical region of pain. After confirming that lead impedance was in the normal range, the external unit was detached, the needle was removed, and the lead was anchored at the skin. The lead was threaded into the connector block and electrical continuity and desired patient response was confirmed. The connector block was attached to the external stimulator unit. The site was covered with a sterile occlusive dressing. A final ultrasound image was taken to document final placement. The patient was observed for stability of vital signs and comfort.
== END 2023-06-27 12:25 | disposition home or self-care (01) ==
PROVIDERS: PCP Internal Medicine; Visit Provider Internal Medicine
PROC: (CPT 64555; principal; 2023-06-27 10:30)
DX: M25.561 Pain in right knee (principal); M17.11 Unilateral primary osteoarthritis, right knee; G89.29 Other chronic pain; R60.9 Edema, unspecified; I10 Essential (primary) hypertension; J45.20 Mild intermittent asthma, uncomplicated; E16.2 Hypoglycemia, unspecified; Z79.899 Other long term (current) drug therapy; Z88.0 Allergy status to penicillin
CPT/HCPCS: 64555; C1778

== ENCOUNTER → 2023-06-27 10:02 | Outpatient (BNV) | payer MEDICAID, SELFPAY | PROVIDERS: PCP Internal Medicine; Visit Provider Internal Medicine | DX: M25.561 Pain in right knee (principal) | CPT/HCPCS: 64555 ==

== ENCOUNTER → 2023-07-04 09:23 | Outpatient (BNVA) | payer MEDICAID, SELFPAY | PROVIDERS: PCP Internal Medicine; Visit Provider Registered Nurse Emergency | DX: Z48.01 Encounter for change or removal of surgical wound dressing (principal); Z96.89 Presence of other specified functional implants | CPT/HCPCS: 99211 ==

== ENCOUNTER → 2023-07-12 09:57 | Outpatient (BNVA) | payer MEDICAID, SELFPAY | PROVIDERS: PCP Internal Medicine; Visit Provider Nurse Practitioner Family | DX: Z48.01 Encounter for change or removal of surgical wound dressing (principal) | CPT/HCPCS: 99211 ==

== ENCOUNTER 2023-07-19 09:05 | Outpatient (AMB) | payer MEDICAID, SELFPAY ==
--- NOTE | 2023-07-19 09:07 | A.OFFVIS_ITS ---
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 Hays and dressing change. Patient reports 45-50% ongoing pain relief for her right knee with improvement in her mobility, climbing stairs, better functioning and better sleep. Her current stimulation setting is at 50 and she is increasing this to 52 today with good tolerance. She is able to ambulated without significant difficulty but reports ongoing right knee pain. She is awaiting to undergo right sided Sprint PNS placement. Denies any recent cough, rash, swelling, lead site tenderness, bleeding, fever or other significant changes in medical history since last office visit. Dressing change was done in clinic today and well tolerated. Patient verbalized understanding and ability to manage and operate Sprint device but prefers dressing changes to be done at our clinic. Past Procedures: 06/27/23: Right Saphenous nerve Sprint-50% pain relief 05/02/23: Left Diagnostic SNB at adductor canal-100% pain relief for 2 days 05/09/23: Right Diagnostic SNB at adductor canal-80% pain relief for 1.5 days PRIOR: Patient is a pleasant 57 years old Micronesian speaking female presents today with chronic bilateral knee pain. She has received cortisone injections and is not yet a candidate for TKA per orthopedic evaluation. Denies any recent trauma, injury or falls. Patient was referred to us for potential genicular diagnostic injections. Patient reports a history of back pain and has no back pain concerns today. She reports left knee is worse than her right knee with radiating pain into her left foot. Pain is described as constant aching, heavy, stabbing, cramping, and tiring. Walking, climbing stairs, knee flexion and cold weather changes worsen her pain. Patient denies catching or locking. No instability. She completed physical therapy with temporary and minimal pain improvement. Currently she is taking Tylenol for pain with mild relief. She does tolerate NSAIDs well due to GI upset but has been taking daily aspirin 81 mg. Denies any fever, unintentional weight loss, dizziness, abdominal, groin or back pain, weakness, burning, tingling, numbness, bowel or bladder incontinence or saddle anesthesia. [facility] Medical History Benzodiazepine dependence Dependent edema HTN (hypertension) Hypoglycemia Migraine without status migrainosus, not intractable Mild persistent asthma without complication Mood disorder Obesity, unspecified Unspecified hemorrhoids Vitamin D deficiency Surgical History H/O: hysterectomy Social History Patient Tobacco Use Status: Current everyday Tobacco user Tobacco use type: Cigarette Current occupational status: disabled Current occupation: right handed Review of Systems Const All systems reviewed & are unremarkable except as noted in HPI and below Physical Exam Vital Signs: Last Vital Signs Pulse 85 07/19/23 09:16 BP 179/85 H 07/19/23 09:16 Pulse Ox 98 07/19/23 09:16 Oxygen Delivery Method Room Air 07/19/23 09:16 BMI result Body Mass Index 33.6 General: Appears afebrile. Alert and oriented. Mood and affect appropriate. Follows and participates in conversation appropriately. Respiratory effort is unlabored. No cough. Able to transition from sit to stand unassisted. Ambulates with bilaterally normal heel strike and toe off. Lead Insertion Site: Lead insertion site looks clean, dry, intact. No pathological discharge. The area was cleansed again with ChloraPrep, dressed with Sprint gauze and tegaderm dressing. Positive paresthesia around left knee at 50-52. Assessment & Plan Assessment & Plan (1) Osteoarthritis of patellofemoral joints, bilateral: Code(s): M17.0 - Bilateral primary osteoarthritis of knee (2) Right knee pain: Code(s): M25.561 - Pain in right knee (3) Left knee pain: Code(s): M25.562 - Pain in left knee Plan Patient is status post Right saphenous nerve Sprint on 06/27/[address] Hays and dressing change. She reports 45-50% pain relief at current stimulation of 50, with mild increase to 52 during today's visit. Dressing site was without any signs of infection or pathological discharge, dressing was changed today. Discussed and reviewed how to care for the Sprint device during the next 2 months and how to change the dressing. Patient prefers dressing changes to be done in our clinic so weekly appts were scheduled today on nurse schedule. Will also initiate Sprint placement for left knee. All questions were answered and the patient agreed with the plan. Follow up for Sprint removal for side side and sooner if needed. Coding Level of Care Code Est Pt Level 3 (72639) Diagnoses Osteoarthritis of patellofemoral joints, bilateral M17.0 Right knee pain M25.561 Left knee pain M25.562
[2023-07-19 09:16] VITALS: BP 179/85; PULSE 85; O2SAT 98; BMI 33.6
== END 2023-07-19 09:26 | disposition home or self-care (01) ==
PROVIDERS: PCP Internal Medicine; Visit Provider Nurse Practitioner Family
DX: M17.0 Bilateral primary osteoarthritis of knee (principal); M25.561 Pain in right knee; M25.562 Pain in left knee

== ENCOUNTER → 2023-07-19 09:05 | Outpatient (BNVA) | payer MEDICAID, SELFPAY | PROVIDERS: PCP Internal Medicine; Visit Provider Nurse Practitioner Family | DX: M17.0 Bilateral primary osteoarthritis of knee (principal); Z98.890 Other specified postprocedural states | CPT/HCPCS: 99212; 99213 ==

== ENCOUNTER → 2023-07-26 09:14 | Outpatient (BNVA) | payer MEDICAID, SELFPAY | PROVIDERS: PCP Internal Medicine; Visit Provider Nurse Practitioner Family | DX: Z48.00 Encounter for change or removal of nonsurgical wound dressing (principal); Z96.82 Presence of neurostimulator | CPT/HCPCS: 99211 ==

== ENCOUNTER → 2023-08-02 09:48 | Outpatient (BNVA) | payer MEDICAID, SELFPAY | PROVIDERS: PCP Internal Medicine; Visit Provider Nurse Practitioner Family | DX: Z48.01 Encounter for change or removal of surgical wound dressing (principal) | CPT/HCPCS: 99211 ==

== ENCOUNTER → 2023-08-09 09:54 | Outpatient (BNVA) | payer MEDICAID, SELFPAY | PROVIDERS: PCP Internal Medicine; Visit Provider Anesthesiology ==

== ENCOUNTER → 2023-08-16 10:07 | Outpatient (BNVA) | payer MEDICAID, SELFPAY | PROVIDERS: PCP Internal Medicine; Visit Provider Anesthesiology | DX: Z48.01 Encounter for change or removal of surgical wound dressing (principal) | CPT/HCPCS: 99211 ==

== ENCOUNTER 2023-08-23 09:28 | Outpatient (AMB) | payer MEDICAID, SELFPAY ==
--- NOTE | 2023-08-23 09:29 | MHC.OFFVIS ---
Intake Vital Signs 08/23/23 09:34 Height 5 ft 5 in Weight 206 lb 2 oz BMI 34.3 BP 173/79 H Blood Pressure Location Rt brachial Position Sitting Pulse 82 Pulse Source Pulse Oximeter Pulse Oximetry (%) 96 Oxygen Delivery Method Room Air Intake Visit Reasons: Right Sprint removal/ Confirmed. Intake Note: Pain today 01/26 Maintenance Advisor Required: Yes Maintenance Advisor Language: Coarse Wire Drawer Name: Genia # [id number] Accompanied by: Self / Same As Patient Allergies Penicillins Allergy (Severe, Verified 08/23/23 09:35) RASH, SWELLING HPI HPI Comments History of Present Illness Details Patient presents today for Right saphenous nerve Sprint removal. Patient reports ongoing 70% pain relief with improved mobility, daily functioning, increased tolerance with walking and climbing stairs, sleep and improved quality of life. Lead insertion site looks clean, dry, intact, no pathological discharge. Area was cleansed with Chloraprep. Lead pulled with tip intact and the area was cleansed again with Chloraprep, applied Bacitracin and covered it with gauze and tegaderm. Denies any recent cough, cold, infection, fever or other significant changes in medical history since last office visit. Past Procedures: 08/23/23: Right saphenous nerve Sprint removal-70% ongoing pain relief 06/27/23: Right Saphenous nerve Sprint-50% pain relief 05/02/23: Left Diagnostic SNB at adductor canal-100% pain relief for 2 days 05/09/23: Right Diagnostic SNB at adductor canal-80% pain relief for 1.5 days PRIOR: Patient is a pleasant 57 years old Croatian speaking female presents today with chronic bilateral knee pain. She has received cortisone injections and is not yet a candidate for TKA per orthopedic evaluation. Denies any recent trauma, injury or falls. Patient was referred to us for potential genicular diagnostic injections. Patient reports a history of back pain and has no back pain concerns today. She reports left knee is worse than her right knee with radiating pain into her left foot. Pain is described as constant aching, heavy, stabbing, cramping, and tiring. Walking, climbing stairs, knee flexion and cold weather changes worsen her pain. Patient denies catching or locking. No instability. She completed physical therapy with temporary and minimal pain improvement. Currently she is taking Tylenol for pain with mild relief. She does tolerate NSAIDs well due to GI upset but has been taking daily aspirin 81 mg. Denies any fever, unintentional weight loss, dizziness, abdominal, groin or back pain, weakness, burning, tingling, numbness, bowel or bladder incontinence or saddle anesthesia. [facility] Medical History Benzodiazepine dependence Migraine without status migrainosus, not intractable Mild persistent asthma without complication Vitamin D deficiency Mood disorder Unspecified hemorrhoids Obesity, unspecified Dependent edema Hypoglycemia HTN (hypertension) Surgical History H/O: hysterectomy Social History Patient Tobacco Use Status: Current everyday Tobacco user Tobacco use type: Cigarette Current occupational status: disabled Current occupation: right handed Review of Systems Const All systems reviewed & are unremarkable except as noted in HPI and below Physical Exam Vital Signs: Last Vital Signs Pulse 82 08/23/23 09:34 BP 173/79 H 08/23/23 09:34 Pulse Ox 96 08/23/23 09:34 Oxygen Delivery Method Room Air 08/23/23 09:34 BMI result Body Mass Index 34.3 General: Appears afebrile. Alert and oriented. Mood and affect appropriate. Follows and participates in conversation appropriately. Respiratory effort is unlabored. No cough. Able to transition from sit to stand unassisted. Ambulates with bilaterally normal heel strike and toe off. Lead Insertion Site: Lead insertion site looks clean, dry, intact. Lead pulled with tip intact. Results Reviewed Results Reviewed: XR KNEE, BILATERAL XR KNEE, RIGHT 03/11/2021 FINDINGS: Right knee: Mild medial compartment arthritis. Mild spurring in the patellofemoral compartment. No fracture or dislocation. Left knee: Mild medial compartment arthritis. Marginal spurring in the lateral compartment. IMPRESSION: Right knee: Mild medial compartment osteoarthritis. Left knee: Osteoarthritic changes, as above. Assessment & Plan Assessment & Plan (1) Right knee pain: Code(s): M25.561 - Pain in right knee (2) Patellofemoral arthritis of right knee: Code(s): M17.11 - Unilateral primary osteoarthritis, right knee Plan Patient presented today for removal of a temporary PNS of the right saphenous nerve. She reports 70 % ongoing pain relief and is content with pain relief. She reports improved functioning, mobility and better sleep. Lead insertion site looks clean, dry, intact, no pathological discharge. Area was cleansed with Chloraprep. Lead pulled with tip intact and the area was cleansed again with Chloraprep, applied Bacitracin and covered it with gauze and tegaderm. All questions were answered. Follow up as needed. Coding Level of Care Code Est Pt Level 3 (66871) Diagnoses Right knee pain M25.561 Patellofemoral arthritis of right knee M17.11
[2023-08-23 09:34] VITALS: BP 173/79; PULSE 82; O2SAT 96; BMI 34.3
== END 2023-08-23 09:50 | disposition home or self-care (01) ==
PROVIDERS: PCP Internal Medicine; Visit Provider Nurse Practitioner Family
DX: M25.561 Pain in right knee (principal); M17.11 Unilateral primary osteoarthritis, right knee
CPT/HCPCS: 99213

== ENCOUNTER → 2023-08-23 09:28 | Outpatient (BNVA) | payer MEDICAID, SELFPAY | PROVIDERS: PCP Internal Medicine; Visit Provider Nurse Practitioner Family | DX: M17.11 Unilateral primary osteoarthritis, right knee (principal); M25.561 Pain in right knee | CPT/HCPCS: 99212 ==

== ENCOUNTER 2023-09-27 11:13 | Outpatient (REF) | payer MEDICAID, SELFPAY ==
[2023-09-27 13:51] LABS: Alanine Aminotransferase 17 U/L (0-31); Albumin Level 4.4 g/dL (3.5-5.0); Alkaline Phosphatase 86 U/L (39-117); Anion Gap 12 (12-20); Aspartate Amino Transferase 13 U/L (5-31); Blood Urea Nitrogen 10 mg/dL (9-16); Calcium 9.6 mg/dL (8.4-10.2); Carbon Dioxide 30 mmol/L (22-29); Chloride 104 mmol/L (96-108); Cholesterol 154 mg/dL (<200); Estimated Glomerular Filt Rate > 60; Glucose Random 130 mg/dL (60-115); HDL Cholesterol 38 mg/dL (>40); LDL Cholesterol Calculated 90 mg/dL (<100); Sodium 142 mmol/L (135-145); Total Protein 7.6 g/dL (6.5-8.0); Triglycerides 130 mg/dL (<150)
== END 2023-09-27 11:14 | disposition home or self-care (01) ==
LOC: HO.HHCL 11:13
PROVIDERS: Visit Provider Internal Medicine
DX: I10 Essential (primary) hypertension (principal)
CPT/HCPCS: 36415; 80053; 80061

== ENCOUNTER 2023-10-17 09:18 | Emergency (ER) | payer MEDICAID, SELFPAY ==
[2023-10-17 09:23] VITALS: BP 158/85; PULSE 97; RESP 17; TEMP 36.6; O2SAT 98; BMI 33.6
--- NOTE | 2023-10-17 09:39 | ED_ITS ---
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 She denies any injury or trauma to the area. She reports area is extremely painful to palpation. Denies any numbness or tingling. Denies fevers. MD complaint: foot pain Onset (ago): day(s) Location: left and lower extremity Radiation: non-radiation Severity: severe Severity scale (1-10): >10 Quality: burning and aching Pain Consistency: constant Relieving factors: rest Exacerbating factors: movement and other (palpation) Associated symptoms: denies other symptoms Treatments prior to arrival: none Related Data Home Medications Medication Instructions Recorded Confirmed aspirin 325 mg tablet 325 mg PO DAILY 03/11/21 08/16/23 atorvastatin 10 mg tablet 10 mg PO DAILY 03/11/21 08/16/23 aripiprazole 10 mg tablet 10 mg PO QAM 08/07/22 08/16/23 aspirin 81 mg tablet,delayed 81 mg PO DAILY 08/07/22 08/16/23 release atorvastatin 40 mg tablet 40 mg PO DAILY 08/07/22 08/16/23 cholecalciferol (vitamin D3) 25 25 mcg PO DAILY 08/07/22 08/16/23 mcg (1,000 unit) tablet clonazepam 1 mg tablet 1 mg PO BEDTIME 08/07/22 08/16/23 diltiazem HCl 240 mg 240 mg PO DAILY 08/07/22 08/16/23 capsule,extended release 24 hr docusate sodium 100 mg capsule 100 mg PO BID 08/07/22 08/16/23 fluticasone propionate 110 1 puff inhalation BID 08/07/22 08/16/23 mcg/actuation HFA aerosol inhaler (Flovent HFA) fluticasone propionate 50 2 spray intranasal DAILY 08/07/22 08/16/23 mcg/actuation nasal spray,suspension losartan 50 mg tablet 50 mg PO DAILY 08/07/22 08/16/23 omeprazole 20 mg capsule,delayed 20 mg PO DAILY 08/07/22 08/16/23 release spironolactone 100 mg tablet 100 mg PO DAILY 08/07/22 08/16/23 sumatriptan succinate 100 mg tablet 0 mg PO 08/07/22 08/16/23 albuterol sulfate 90 mcg/actuation 2 puff inhalation Q6H PRN wheezing 10/16/22 08/16/23 aerosol inhaler (Proventil HFA) acetaminophen 500 mg tablet 1,000 mg PO Q6H PRN fever 05/11/23 08/16/23 aripiprazole 15 mg tablet 15 mg PO QAM 05/11/23 08/16/23 buspirone 10 mg tablet 10 mg PO 05/11/23 08/16/23 Previous Rx's Medication Instructions Recorded benzonatate 200 mg capsule 200 mg PO TID PRN cough #20 caps 11/16/22 naproxen 500 mg tablet 500 mg PO BID #28 tabs 10/17/23 prednisone 20 mg tablet 40 mg (2 x 20 mg) PO DAILY #8 tabs 10/17/23 Allergies Allergy/AdvReac Type Severity Reaction Status Date / Time Penicillins Allergy Severe RASH, Verified 10/17/23 09:23 SWELLING Review of Systems Review of Systems: As per HPI Yes all other systems are reviewed and are negative Constitutional: Constitutional: Reports as per HPI PMFSH Past Medical History Medical History Benzodiazepine dependence Migraine without status migrainosus, not intractable Mild persistent asthma without complication Vitamin D deficiency Mood disorder Unspecified hemorrhoids Obesity, unspecified Dependent edema Hypoglycemia HTN (hypertension) Surgical History H/O: hysterectomy Social History Social History (System 09/20/23 @ 12:13 by April Kilgore) Patient Tobacco Use Status: Current everyday Tobacco user Tobacco use type: Cigarette Smoked in Last 30 Days: Yes Use of substances other than those prescribed or required for medical reasons: Yes Substance Use Type: Marijuana Advance Directives: No Advance Directives Information Provided: Yes Patient : No Current occupational status: disabled Current occupation: right handed Physical Exam ED Vital Signs: Vital Signs - 24 hr 10/17/23 09:23 Temperature 98 F Pulse Rate 97 Respiratory Rate 17 Blood Pressure 158/85 H Pulse Oximetry 98 Oxygen Delivery Method Room Air BMI result Body Mass Index 33.6 Vital signs have been reviewed and appear to be correct. Blood pressure elevated. Heart rate normal. Respiratory rate normal. Temperature normal. Oxygen saturation normal. Const General: cooperative, healthy appearing and no acute distress Orientation/consciousness: oriented to person, oriented to place, oriented to time and patient oriented x3 Limitations: no limitations HENMT Head: Yes normocephalic and Yes atraumatic Ears: external ears normal General nose exam: Normal external nose present Face and sinus: Yes face symmetric Mouth: oropharynx normal and moist mucous membranes Throat: Yes uvula midline Eyes Pupils: Equal, round and reactive pupils present Neck Neck: Yes normal visual inspection and Yes supple Resp Effort & Inspection: normal respiratory effort and able to speak in complete sentences Auscultation: clear to auscultation bilaterally Cardio Rate: regular rate Rhythm: regular rhythm Heart sounds: S1 normal heart sound present and S2 normal heart sound present GI Palpation (GI): Soft to palpation and nontender Auscultation: normoactive bowel sounds General: Yes no CVA tenderness Back/Spine/Pelvis Back: no CVA tenderness Skin General skin exam: elasticity normal and turgor normal Neuro General: oriented to person, oriented to place, oriented to time, patient oriented x3, moves all extremities, no focal motor deficits and CN's II-XI intact bilaterally Cranial nerves: Yes Equal, round and reactive pupils present Cognition (Neuro): normal cognition Extrem General: Yes full ROM, Yes normal exam except as noted, Yes no pedal edema and Yes no calf tenderness Left lower extremity: foot Details: normal capillary refill, abnormal to inspection Details: erythematous (1st MTP joint), tenderness Location: of the g reat toe Location: at the MTP joint, toes with normal ROM, warmth Location: of the great toe Location: at the MTP joint and vascular exam Details: dorsalis pedis pulse present, posterior tibial pulse present and normal capillary refill Psych Mental Status: mental status grossly normal Affect: normal affect Thought process: Normal thought process present Medical Decision Making Medical Decision Making MDM Narrative: Patient is a 58-year-old Icelandic-speaking female presenting to the emergency department with complaint of left foot pain, swelling, and redness for the past 2 days. On exam patient is awake, A+Ox3, BP mildly elevated, VS otherwise WNL, afebrile, normal neurological exam without focal deficits, physical exam findings as above. Given reported symptoms and physical exam findings, initial differential includes contusion, cellulitis, gout. Likely fracture as patient denies any injury. Physical exam findings consistent with gout, will start patient on short course prednisone, then advised to switch to naproxen until symptoms improve. Instructed patient to notify PCP and schedule follow-up appointment. Return precautions discussed. Patient verbalized understanding of and agreement with plan. Differential Diagnosis Differential Diagnoses: The differential diagnosis associated with the presentation includes As per MDM. External Record Review External record reviewed: Inpatient record, Office record and Outpatient record Prescription Management I considered prescription management with: Pain Medication and Other Chronic Conditions Patient?s care impacted by: Hypertension Discharge Plan Discharge Clinical Impression: Gout attack Qualifiers: Gout site: toe Encounter type: initial encounter Laterality: left Patient Disposition: Home, Self-Care Instructions: Low Purine Diet (ED), Gout (ED) Additional Instructions: Lo evaluaron hoy en el departamento de emergencias por dolor en el pie nam, que probablemente se debe a un brote de gota. Est? medicado con prednisona en el departamento de emergencias hoy. Le recetan un tratamiento corto de prednisona josé miguel los pr?ximos 4 d?as; tome la siguiente dosis ma?lyn. Joyce vez que haya completado la prednisona, debe comenzar a zi naproxeno, que es un medicamento antiinflamatorio. Por favor acuda a la chantelle con bar proveedor de atenci?n primaria ma?lyn y le informar? sobre bar diagn?stico y plan de tratamiento. Regrese al departamento de emergencias si presenta un dolor que empeora, cambio de color en el pie, nueva debilidad, entumecimiento, hormigueo en el pie, fiebre o cualquier otro s?ntoma preocupante. Prescriptions: New prednisone 20 mg tablet 40 mg PO DAILY Qty: 8 0RF naproxen 500 mg tablet 500 mg PO BID Qty: 28 0RF No Action benzonatate 200 mg capsule 200 mg PO TID PRN (Reason: cough) Qty: 20 0RF atorvastatin 10 mg tablet 10 mg PO DAILY aspirin 325 mg tablet 325 mg PO DAILY fluticasone propionate [Flovent HFA] 110 mcg/actuation HFA aerosol inhaler 1 puff inhalation BID fluticasone propionate 50 mcg/actuation spray,suspension 2 spray intranasal DAILY aripiprazole 10 mg tablet 10 mg PO QAM aspirin 81 mg tablet,delayed release (DR/EC) 81 mg PO DAILY docusate sodium 100 mg capsule 100 mg PO BID clonazepam 1 mg tablet 1 mg PO BEDTIME diltiazem HCl 240 mg capsule,extended release 24hr 240 mg PO DAILY sumatriptan succinate 100 mg tablet 0 mg PO atorvastatin 40 mg tablet 40 mg PO DAILY losartan 50 mg tablet 50 mg PO DAILY omeprazole 20 mg capsule,delayed release(DR/EC) 20 mg PO DAILY cholecalciferol (vitamin D3) 25 mcg (1,000 unit) tablet 25 mcg PO DAILY spironolactone 100 mg tablet 100 mg PO DAILY albuterol sulfate [Proventil HFA] 90 mcg/actuation HFA aerosol inhaler 2 puff inhalation Q6H PRN (Reason: wheezing) buspirone 10 mg tablet 10 mg PO acetaminophen 500 mg tablet 1,000 mg PO Q6H PRN (Reason: fever) aripiprazole 15 mg tablet 15 mg PO QAM Print Language: Icelandic
--- NOTE | 2023-10-17 10:00 | PC.NURSE ---
provider/full time staff interpreter bedside.
[2023-10-17] MEDS: predniSONE 20 MG TABLET 40 MG PO (10:53)
[2023-10-17] MEDS: Acetaminophen 325 MG TABLET 975 MG PO (10:53)
--- NOTE | 2023-10-17 10:54 | PC.NURSE ---
medication administered per provider order.
== END 2023-10-17 11:06 | disposition home or self-care (01) ==
PROVIDERS: Emergency Provider Emergency Medicine; PCP Internal Medicine
DX: M10.072 Idiopathic gout, left ankle and foot (principal); Z79.899 Other long term (current) drug therapy
CPT/HCPCS: 99283; 99284

== ENCOUNTER 2024-02-23 11:50 | Emergency (ER) | payer MEDICAID, SELFPAY ==
[2024-02-23 11:54] VITALS: BP 180/90; PULSE 106; O2SAT 97
[2024-02-23 12:00] VITALS: BP 132/68; BP 134/66; PULSE 81; RESP 18; TEMP 36.6; TEMP 36.8; O2SAT 98; BMI 33.6
--- NOTE | 2024-02-23 12:53 | ED.EAR ---
HPI - Ear Problem General Chief complaint: Ear Problems Stated complaint: neck pain radiating down arm no injury Time Seen by Provider: 02/23/24 12:06 Source: patient Mode of arrival: ambulatory Limitations: no limitations History of Present Illness HPI Narrative: 58-year-old female presents with left-sided ear pain that radiates to head and neck x5 days. Patient reports it is making her feel tired and unwell. Reports her daughter is currently influenza positive. She reports pain was intermittent in nature now was constant in nature. Denies recent trauma or decreased hearing, fevers, chills, nausea, vomiting, diarrhea, abdominal pain, headache, vision changes, weakness, sore throat at this time. Related Data Home Medications ?Medication ?Instructions ?Recorded ?Confirmed aspirin 325 mg tablet 325 mg PO DAILY 03/11/21 08/16/23 atorvastatin 10 mg tablet 10 mg PO DAILY 03/11/21 08/16/23 aripiprazole 10 mg tablet 10 mg PO QAM 08/07/22 08/16/23 aspirin 81 mg tablet,delayed 81 mg PO DAILY 08/07/22 08/16/23 release atorvastatin 40 mg tablet 40 mg PO DAILY 08/07/22 08/16/23 cholecalciferol (vitamin D3) 25 25 mcg PO DAILY 08/07/22 08/16/23 mcg (1,000 unit) tablet clonazepam 1 mg tablet 1 mg PO BEDTIME 08/07/22 08/16/23 diltiazem HCl 240 mg 240 mg PO DAILY 08/07/22 08/16/23 capsule,extended release 24 hr docusate sodium 100 mg capsule 100 mg PO BID 08/07/22 08/16/23 fluticasone propionate 110 1 puff inhalation BID 08/07/22 08/16/23 mcg/actuation HFA aerosol inhaler (Flovent HFA) fluticasone propionate 50 2 spray intranasal DAILY 08/07/22 08/16/23 mcg/actuation nasal spray,suspension losartan 50 mg tablet 50 mg PO DAILY 08/07/22 08/16/23 omeprazole 20 mg capsule,delayed 20 mg PO DAILY 08/07/22 08/16/23 release spironolactone 100 mg tablet 100 mg PO DAILY 08/07/22 08/16/23 sumatriptan succinate 100 mg tablet 0 mg PO 08/07/22 08/16/23 albuterol sulfate 90 mcg/actuation 2 puff inhalation Q6H PRN wheezing 10/16/22 08/16/23 aerosol inhaler (Proventil HFA) acetaminophen 500 mg tablet 1,000 mg PO Q6H PRN fever 05/11/23 08/16/23 aripiprazole 15 mg tablet 15 mg PO QAM 05/11/23 08/16/23 buspirone 10 mg tablet 10 mg PO 05/11/23 08/16/23 Previous Rx's ?Medication ?Instructions ?Recorded benzonatate 200 mg capsule 200 mg PO TID PRN cough #20 caps 11/16/22 naproxen 500 mg tablet 500 mg PO BID #28 tabs 10/17/23 prednisone 20 mg tablet 40 mg (2 x 20 mg) PO DAILY #8 tabs 10/17/23 doxycycline hyclate 100 mg capsule 100 mg PO BID 10 days #20 caps 02/23/24 Allergies Allergy/AdvReac Type Severity Reaction Status Date / Time Penicillins Allergy Severe RASH, Verified 02/23/24 12:22 SWELLING Review of Systems Review of Systems: Constitutional : No Weight loss, No Fever, No Chills, No Fatigue, No Malaise ENT/Mouth : No sore throat, No Rhinorrhea, + ear pain Eyes: No Eye Pain, No Swelling, No Redness Cardiovascular : No Chest Pain, No SOB, No Dyspnea on Exertion, No Orthopnea, No Edema, No Palpitations Respiratory : No Cough, No Sputum, No Wheezing Gastrointestinal : No Nausea, No Vomiting, No Diarrhea, No Constipation, No abdominal Pain, No Hematochezia, No Melena Genitourinary : No Dysuria, No Urinary Frequency, No Hematuria, Musculoskeletal : No joint pain, No Myalgias, No Joint Swelling Skin : No Skin Lesions, No rash Neuro : No Weakness, No Numbness, No Dizziness, No Headache Psych : No Anxiety/Panic, No Depression Heme/Lymph: No Bruising, No Bleeding,No Lymphadenopathy All other systems reviewed and are negative Yes all other systems are reviewed and are negative [facility] Past Medical History Attestation statement: The following information was validated with the patient. Source: old records reviewed and nursing notes reviewed Medical History Benzodiazepine dependence Migraine without status migrainosus, not intractable Mild persistent asthma without complication Vitamin D deficiency Mood disorder Unspecified hemorrhoids Obesity, unspecified Dependent edema Hypoglycemia HTN (hypertension) Surgical History H/O bilateral salpingo-oophorectomy H/O: hysterectomy Social History Social History Patient Tobacco Use Status: Current everyday Tobacco user Tobacco use type: Cigarette Substance Use Type: Marijuana Advance Directives: No Advance Directives Information Provided: No Current occupational status: disabled Current occupation: right handed Physical Exam Vital Signs: Vital Signs: Last Vital Signs Temp 98 F 02/23/24 12:00 Pulse 81 02/23/24 12:00 Resp 18 02/23/24 12:00 BP 132/68 02/23/24 12:00 Pulse Ox 98 02/23/24 12:00 O2 Del Method Room Air 02/23/24 12:00 BMI result Body Mass Index 33.6 vss Appearance: Alert.? Oriented X3.? No acute distress.? Head: Normocephalic, atraumatic, no step-offs or deformities Eyes: Pupils equal, round and reactive to light.? ENT: Pharynx normal.?erythematous and bulging left-sided tympanic membrane and erythematous left ear canal. No pain with manipulation of external ears bilaterally. Normal right tympanic membrane and ear canal. No mastoid tenderness. Neck: Normal inspection.? Neck supple.? CVS: Normal heart rate and rhythm.? Pulses normal.? Respiratory: No respiratory distress.? Breath sounds normal.? Abdomen: Soft and nontender.? Skin: Skin warm and dry.? Normal skin color.? Normal skin turgor.? Extremities: No lower extremity edema.? No calf ttp. 5/5 strength to bilateral upper and lower extremities Neuro: Oriented X 3.? No motor deficit.? No sensory deficit. CN 2-12 intact Course Reevaluation(s) Reevaluation #1: Patient has an allergy to amoxicillin therefore will discharge with doxycycline for otitis media. Flu COVID RSV pending. Will call her if results are positive. Educated patient on diagnosis and treatment plan, answered all question, patient verbalizes understanding. At this time patient will be discharged home, advised to return with new or worsening symptoms. Educated on worrisome signs and symptoms and when to return. At this time I feel comfortable discharge home. Time: 12:58 Medical Decision Making Medical Decision Making [facility] Narrative: 1245 58-year-old female presents with left-sided ear pain, also reports recent contacts who were flu positive. Physical exam erythematous and bulging left-sided tympanic membrane and erythematous left ear canal. No pain with manipulation of external ears bilaterally. Normal right tympanic membrane and ear canal. No mastoid tenderness. No meningeal signs. Patient well-appearing. History and physical exam concerning for otitis media. Unlikely otitis externa, mastoiditis, meningitis, encephalitis, intracranial hemorrhage, stroke, posterior stroke. No signs of traumatic injury to head, neck. Will rule out flu, COVID, RSV. Unlikely strep throat. No signs of threat to airway or peritonsillar abscess. Plan at this time viral test Differential Diagnosis Differential Diagnoses: The differential diagnosis associated with the presentation includes History and physical exam concerning for otitis media. Unlikely otitis externa, mastoiditis, meningitis, encephalitis, intracranial hemorrhage, stroke, posterior stroke. No signs of traumatic injury to head, neck. Will rule out flu, COVID, RSV. Unlikely strep throat. No signs of threat to airway or peritonsillar abscess. Admission/Observation Consideration of admission/observation: Escalation of care including admission/observation considered Lab Data [facility] Lab Attestation statement: I reviewed the patient's lab results. Critical Care Time Critical Care Time Critical Care Time: No Discharge Plan Discharge Clinical Impression: Otitis media Patient Disposition: Home, Self-Care Instructions: Ear Infection (ED) Additional Instructions: Take your medications as prescribed. If you were prescribed antibiotics today, it is important that you take your medication to their entirety, do not skip any doses, do not finish them early. Follow-up with your primary care provider this week. Return to the emergency department with new or worsening symptoms. Such as fevers, chills, chest pain, shortness of breath, nausea, vomiting, dizziness, headache, vision changes, lethargy In case of emergency call 911 Prescriptions: New doxycycline hyclate 100 mg capsule 100 mg PO BID 10 Days Qty: 20 0RF No Action benzonatate 200 mg capsule 200 mg PO TID PRN (Reason: cough) Qty: 20 0RF prednisone 20 mg tablet 40 mg PO DAILY Qty: 8 0RF naproxen 500 mg tablet 500 mg PO BID Qty: 28 0RF atorvastatin 10 mg tablet 10 mg PO DAILY aspirin 325 mg tablet 325 mg PO DAILY fluticasone propionate [Flovent HFA] 110 mcg/actuation HFA aerosol inhaler 1 puff inhalation BID fluticasone propionate 50 mcg/actuation spray,suspension 2 spray intranasal DAILY aripiprazole 10 mg tablet 10 mg PO QAM aspirin 81 mg tablet,delayed release (DR/EC) 81 mg PO DAILY docusate sodium 100 mg capsule 100 mg PO BID clonazepam 1 mg tablet 1 mg PO BEDTIME diltiazem HCl 240 mg capsule,extended release 24hr 240 mg PO DAILY sumatriptan succinate 100 mg tablet 0 mg PO atorvastatin 40 mg tablet 40 mg PO DAILY losartan 50 mg tablet 50 mg PO DAILY omeprazole 20 mg capsule,delayed release(DR/EC) 20 mg PO DAILY cholecalciferol (vitamin D3) 25 mcg (1,000 unit) tablet 25 mcg PO DAILY spironolactone 100 mg tablet 100 mg PO DAILY albuterol sulfate [Proventil HFA] 90 mcg/actuation HFA aerosol inhaler 2 puff inhalation Q6H PRN (Reason: wheezing) buspirone 10 mg tablet 10 mg PO acetaminophen 500 mg tablet 1,000 mg PO Q6H PRN (Reason: fever) aripiprazole 15 mg tablet 15 mg PO QAM Referrals: Montrell Bardales MD [Primary Care Provider] - 2 days Stand Alone Forms: Work/School Release Print Language: Malagasy
[2024-02-23 13:30] VITALS: BP 144/70; PULSE 80; RESP 18; TEMP 36.6; O2SAT 98
[2024-02-23 13:52] LABS: Influenza A PCR NEGATIVE (Negative); Influenza B PCR NEGATIVE (Negative); Resp Syncy Virus RNA Qual PCR NEGATIVE (Negative); SARS COV2 PCR INHOUSE NEGATIVE (Negative)
[2024-02-23 14:00] VITALS: BP 144/70; PULSE 80; RESP 18; TEMP 36.6; O2SAT 98
== END 2024-02-23 14:01 | disposition home or self-care (01) ==
PROVIDERS: Physician Assistant; Emergency Provider Student in an Organized Health Care Education/Training Program; PCP Internal Medicine
DX: H66.93 Otitis media, unspecified, bilateral (principal); M54.2 Cervicalgia; Z20.822 Contact with and (suspected) exposure to COVID-19; Z11.52 Encounter for screening for COVID-19
CPT/HCPCS: 0241U; 99283; 99284

== ENCOUNTER 2024-03-02 10:22 | Emergency (ER) | payer MEDICAID, SELFPAY ==
[2024-03-02 10:31] VITALS: BP 146/74; PULSE 90; O2SAT 98
[2024-03-02 10:39] VITALS: BP 147/58; PULSE 77; RESP 16; TEMP 36.8; O2SAT 99; BMI 32.1
--- NOTE | 2024-03-02 10:45 | ED.EAR ---
HPI - Ear Problem General Chief complaint: Ear Problems Stated complaint: FEVER WALKER PAIN X 1 WEEK TOOTH PAIN Time Seen by Provider: 03/02/24 10:28 Source: patient and RN notes reviewed Mode of arrival: ambulatory Limitations: no limitations History of Present Illness HPI Narrative: This is a 58-year-old female, with a history of hypertension, presents to the emergency department for evaluation of ongoing left ear pain for the last 8 days. Patient was seen on February 22 due to left ear pain and was diagnosed with an ear infection. She was treated with doxycycline which she has been taking however has not noted any improvement of her symptoms. Patient states that she had a fever last night. She has been taking Tylenol with some relief. She also endorses urinary frequency, denies hematuria, dysuria, urinary urgency. She denies any dizziness, lightheadedness, neck pain, chest pain, shortness of breath, abdominal pain, nausea, vomiting or diarrhea. She denies any recent swimming or trauma. No other complaints or concerns at this time. MD Complaint: ear pain Location: left ear Duration: constant Severity: moderate Relieving factors: nothing Exacerbating factors: nothing Context: recent illness Discharge from ear: no Associated symptoms ear: fever, decreased hearing and headache Related Data Home Medications ?Medication ?Instructions ?Recorded ?Confirmed aspirin 325 mg tablet 325 mg PO DAILY 03/11/21 08/16/23 atorvastatin 10 mg tablet 10 mg PO DAILY 03/11/21 08/16/23 aripiprazole 10 mg tablet 10 mg PO QAM 08/07/22 08/16/23 aspirin 81 mg tablet,delayed 81 mg PO DAILY 08/07/22 08/16/23 release atorvastatin 40 mg tablet 40 mg PO DAILY 08/07/22 08/16/23 cholecalciferol (vitamin D3) 25 25 mcg PO DAILY 08/07/22 08/16/23 mcg (1,000 unit) tablet clonazepam 1 mg tablet 1 mg PO BEDTIME 08/07/22 08/16/23 diltiazem HCl 240 mg 240 mg PO DAILY 08/07/22 08/16/23 capsule,extended release 24 hr docusate sodium 100 mg capsule 100 mg PO BID 08/07/22 08/16/23 fluticasone propionate 110 1 puff inhalation BID 08/07/22 08/16/23 mcg/actuation HFA aerosol inhaler (Flovent HFA) fluticasone propionate 50 2 spray intranasal DAILY 08/07/22 08/16/23 mcg/actuation nasal spray,suspension losartan 50 mg tablet 50 mg PO DAILY 08/07/22 08/16/23 omeprazole 20 mg capsule,delayed 20 mg PO DAILY 08/07/22 08/16/23 release spironolactone 100 mg tablet 100 mg PO DAILY 08/07/22 08/16/23 sumatriptan succinate 100 mg tablet 0 mg PO 08/07/22 08/16/23 albuterol sulfate 90 mcg/actuation 2 puff inhalation Q6H PRN wheezing 10/16/22 08/16/23 aerosol inhaler (Proventil HFA) acetaminophen 500 mg tablet 1,000 mg PO Q6H PRN fever 05/11/23 08/16/23 aripiprazole 15 mg tablet 15 mg PO QAM 05/11/23 08/16/23 buspirone 10 mg tablet 10 mg PO 05/11/23 08/16/23 Previous Rx's ?Medication ?Instructions ?Recorded benzonatate 200 mg capsule 200 mg PO TID PRN cough #20 caps 11/16/22 naproxen 500 mg tablet 500 mg PO BID #28 tabs 10/17/23 prednisone 20 mg tablet 40 mg (2 x 20 mg) PO DAILY #8 tabs 10/17/23 doxycycline hyclate 100 mg capsule 100 mg PO BID 10 days #20 caps 02/23/24 ofloxacin 0.3 % ear drops 10 drp otic (ears) DAILY #10 mL 03/02/24 Allergies Allergy/AdvReac Type Severity Reaction Status Date / Time Penicillins Allergy Severe RASH, Verified 03/02/24 10:40 SWELLING Review of Systems Review of Systems: Yes all other systems are reviewed and are negative Constitutional: Constitutional: Reports as per [facility] Past Medical History Medical History Benzodiazepine dependence Migraine without status migrainosus, not intractable Mild persistent asthma without complication Vitamin D deficiency Mood disorder Unspecified hemorrhoids Obesity, unspecified Dependent edema Hypoglycemia HTN (hypertension) Surgical History H/O bilateral salpingo-oophorectomy H/O: hysterectomy Social History Social History Patient Tobacco Use Status: Current everyday Tobacco user Tobacco use type: Cigarette Substance Use Type: Marijuana Advance Directives: No Advance Directives Information Provided: Yes Current occupational status: disabled Current occupation: right handed Physical Exam Vital Signs: Vital Signs: Last Vital Signs Temp 97.9 F 03/02/24 12:53 Pulse 91 03/02/24 12:53 Resp 16 03/02/24 12:53 BP 99/81 03/02/24 12:53 Pulse Ox 95 03/02/24 12:53 O2 Del Method Room Air 03/02/24 12:53 BMI result Body Mass Index 32.1 Const: General: cooperative, comfortable and no acute distress Orientation/consciousness: patient oriented x3 Limitations: no limitations HEENT: Other: Left auditory ear canal with scattered white papules versus exudates. Unclear whether not this is dry skin. This extends onto the tympanic membrane. Tympanic membrane is erythematous intact. No mastoid tenderness or fluctuance Head: Yes normal to inspection, Yes normocephalic and Yes atraumatic Ears: hearing grossly normal bilaterally General nose exam: Normal external nose present Face and sinus: Yes normal facial exam Mouth: Normal oral and palatal mucosa present, oropharynx normal and moist mucous membranes Throat: Yes posterior oropharynx normal Eyes: General: appearance normal, both eyes and all related structures Eyelids: Yes eyelids normal Conjunctivae: conjunctivae normal Sclerae: sclerae normal Pupils: Equal, round and reactive pupils present EOM: EOMs intact bilaterally Neck: Neck: Yes normal visual inspection, Yes full ROM and Yes no lymphadenopathy Lymphatic: no lymphadenopathy noted Chest: Chest palpation & inspection: normal inspection of the chest Resp: Effort & Inspection: normal respiratory effort and able to speak in complete sentences Auscultation: clear to auscultation bilaterally, no crackles, no rales, no rhonchi and no wheezes Cardio: Rate: regular rate Rhythm: regular rhythm Heart sounds: S1 normal heart sound present and S2 normal heart sound present GI: Inspection: Yes normal to inspection Skin: General skin exam: no rashes or lesions noted Trauma: no lacerations or abrasions Wounds: no wounds Neuro: General: patient oriented x3 and moves all extremities Cranial nerves: Yes Equal, round and reactive pupils present Extrem: General: Yes normal to inspection Right upper extremity: normal to inspection Left upper extremity: normal to inspection Right lower extremity: normal to inspection Left lower extremity: normal to inspection Course Reevaluation(s) Reevaluation #1: Urine does not appear to be infected. Symptoms consistent with otitis externa, will continue doxycycline, also added ofloxacin for symptoms. Patient discharged with return precautions as well as referral to ENT for further management symptoms educated to follow-up with primary care. Given return precautions. She understands and agrees with plan. Patient stable for discharge. Time: 12:26 Medications Administered Discontinued Medications Generic Name Dose Route Start Last Admin Trade Name Kathy PRN Reason Stop Dose Admin Acetaminophen 975 mg 03/02/24 10:59 03/02/24 11:06 Acetaminophen 325 Mg Tablet PO 03/02/24 11:00 975 mg ONCE ONE Administration Ondansetron HCl 4 mg 03/02/24 11:23 03/02/24 11:27 Ondansetron Odt 4 Mg Tab.Rapdis TRANSLINGU 03/02/24 11:24 4 mg ONCE ONE Administration Medical Decision Making Medical Decision Making MDM Narrative: This is a 58-year-old female, with a history of hypertension, who presents emergency department for evaluation of ongoing left ear pain. On arrival, patient mildly hypertensive at 147/58, all other vital signs within normal limits. Left auditory canal is erythematous with scattered white lesions noted, questionable dry skin versus exudates. Does not appear to be fungal however does appears to still be infected. Patient has an allergy to penicillins therefore she was treated with doxycycline originally. Given auditory canal has possible exudates and erythema, will treat with ear drops. Attempted to remove these white lesions however unable to do so. She has no evidence of mastoiditis on examination. Patient will also give referral to ENT specialist. She states that she has urinary frequency which is unusual for her so urine sample was obtained today. She is afebrile, nontoxic-appearing. Discussed case with attending who is in agreement with this plan. Differential Diagnosis Differential Diagnoses: The differential diagnosis associated with the presentation includes Otitis media, otitis externa, mastoiditis, cerumen impaction Admission/Observation Consideration of admission/observation: Escalation of care including admission/observation considered Escalation of care including admission/observation considered however given workup today not warranted at this time. Lab Data Labs: Lab Results 03/02/24 Range/Units 11:24 Urine Color Yellow Urine Appearance Clear Urine pH 5.5 (5.0-9.0) Ur Specific [place] 1.020 (1.005-1.025) Urine Protein Negative (Neg-Trace) mg/dL Urine Glucose (UA) Negative (Negative) mg/dL Urine Ketones Negative (Negative) mg/dL Urine Blood Negative (Negative) Urine Nitrite Negative (Negative) Ur Leukocyte Esterase Negative (Negative) Discharge Plan Discharge Clinical Impression: Otitis externa Patient Disposition: Home, Self-Care Instructions: Otitis Externa (ED) Additional Instructions: You have an ear infection which is causing you to have these symptoms. Please continue taking doxycycline, and also use ear drops as prescribed. Please follow-up with ENT for further assistance and guidance of your symptoms. Call to make an appointment. Alternate between ibuprofen and or Tylenol as needed for pain. Return to the emergency department with new or worsening symptoms including not limited to worsening pain, chest pain, shortness of breath, nausea, vomiting, dizziness, headache, vision changes or lethargy. Prescriptions: New ofloxacin 0.3 % drops 10 drp otic (ears) DAILY Qty: 10 0RF No Action benzonatate 200 mg capsule 200 mg PO TID PRN (Reason: cough) Qty: 20 0RF prednisone 20 mg tablet 40 mg PO DAILY Qty: 8 0RF naproxen 500 mg tablet 500 mg PO BID Qty: 28 0RF doxycycline hyclate 100 mg capsule 100 mg PO BID 10 Days Qty: 20 0RF atorvastatin 10 mg tablet 10 mg PO DAILY aspirin 325 mg tablet 325 mg PO DAILY fluticasone propionate [Flovent HFA] 110 mcg/actuation HFA aerosol inhaler 1 puff inhalation BID fluticasone propionate 50 mcg/actuation spray,suspension 2 spray intranasal DAILY aripiprazole 10 mg tablet 10 mg PO QAM aspirin 81 mg tablet,delayed release (DR/EC) 81 mg PO DAILY docusate sodium 100 mg capsule 100 mg PO BID clonazepam 1 mg tablet 1 mg PO BEDTIME diltiazem HCl 240 mg capsule,extended release 24hr 240 mg PO DAILY sumatriptan succinate 100 mg tablet 0 mg PO atorvastatin 40 mg tablet 40 mg PO DAILY losartan 50 mg tablet 50 mg PO DAILY omeprazole 20 mg capsule,delayed release(DR/EC) 20 mg PO DAILY cholecalciferol (vitamin D3) 25 mcg (1,000 unit) tablet 25 mcg PO DAILY spironolactone 100 mg tablet 100 mg PO DAILY albuterol sulfate [Proventil HFA] 90 mcg/actuation HFA aerosol inhaler 2 puff inhalation Q6H PRN (Reason: wheezing) buspirone 10 mg tablet 10 mg PO acetaminophen 500 mg tablet 1,000 mg PO Q6H PRN (Reason: fever) aripiprazole 15 mg tablet 15 mg PO QAM Referrals: Dov Bustillo [Physician] - Interventions: ED Discharge Assessment Last Done: 03/02/24 12:53 Discharge Date/Time: 03/02/24 12:53 Print Language: Armenian
[2024-03-02] MEDS: Acetaminophen 325 MG TABLET 975 MG PO (11:06)
[2024-03-02] MEDS: Ondansetron ODT 4 MG TAB.RAPDIS TRANSLINGU (11:27)
--- NOTE | 2024-03-02 11:28 | PC.NURSE ---
patient medicated per MAR with zofran for nausea and tylenol for pain.
[2024-03-02 11:33] LABS: Appearance Urine Clear; Color Urine Yellow; Glucose Urine UA Negative (Negative); Leukocyte Esterase Urine Negative (Negative); Nitrite Urine Negative (Negative); PH 5.5 (5.0-9.0); Urine Blood Negative (Negative); Urine Ketones Negative (Negative); Urine Protein Negative (Neg-Trace)
[2024-03-02 12:53] VITALS: BP 99/81; PULSE 91; RESP 16; TEMP 36.6; O2SAT 95
== END 2024-03-02 12:53 | disposition home or self-care (01) ==
PROVIDERS: Physician Assistant Medical; Emergency Provider Student in an Organized Health Care Education/Training Program; PCP Internal Medicine
DX: H60.92 Unspecified otitis externa, left ear (principal); I10 Essential (primary) hypertension
CPT/HCPCS: 81003; 99283

== ENCOUNTER 2024-03-05 10:25 | Outpatient (REF) | payer MEDICAID, SELFPAY ==
[2024-03-05 11:36] LABS: MANUAL DIFF FLAG NO
[2024-03-05 11:44] LABS: Basophils Absolute Auto 0.1 X10*3/uL (0.0-0.2); Basophils Percent Auto 0.5 % (0-2); Eosinophils Absolute Auto 0.1 X10*3/uL (0.0-0.4); Hematocrit 48.1 % (37.0-47.0); Hemoglobin 16.4 g/dl (12.0-16.0); Imm Gran Abs Auto 0.04 X10*3/uL (0.00-0.03); Imm Gran Pct Auto 0.4 % (0.0-0.4); Lymphocytes Absolute Auto 2.4 X10*3/uL (1.2-4.9); Lymphocytes Percent Auto 23.7 % (20-40); Mean Corpuscular HGB Conc 34.1 g/dl (31.0-35.0); Mean Corpuscular Hemoglobin 31.8 pg (27.0-33.0); Mean Corpuscular Volume 93.2 fL (80.0-98.0); Mean Platelet Volume 11.1 fL (9.4-12.3); Monocytes Absolute Auto 0.7 X10*3/uL (0.1-1.2); Monocytes Percent Auto 6.4 % (2-11); Neutrophils Absolute Auto 6.9 x10*3/uL (2.0-8.3); Platelet Count 314 X10*3/uL (160-400); Red Blood Count 5.16 X10*6/uL (4.20-5.50); Red Cell Distribution Width 13.2 % (11.0-16.0); White Blood Count 10.1 X10*3/uL (4.8-10.8)
[2024-03-05 12:12] LABS: ~HepC Num1 0.12 S/CO (0.00-0.79); ~Hepatitis C Antibody Nonreactive (Nonreactive)
[2024-03-05 12:21] LABS: Alanine Aminotransferase 14 U/L (0-31); Albumin Level 4.6 g/dL (3.5-5.0); Anion Gap 13 (12-20); Aspartate Amino Transferase 14 U/L (5-31); Bilirubin Total 1.2 mg/dL (0.0-1.0); Blood Urea Nitrogen 13 mg/dL (9-16); Calcium 10.5 mg/dL (8.4-10.2); Carbon Dioxide 26 mmol/L (22-29); Chloride 103 mmol/L (96-108); Cholesterol 125 mg/dL (<200); Estimated Glomerular Filt Rate 53; Glucose Random 98 mg/dL (60-115); HDL Cholesterol 33 mg/dL (>40); LDL Cholesterol Calculated 74 mg/dL (<100); Potassium 4.1 mmol/L (3.3-5.1); Sodium 138 mmol/L (135-145); TSH reflex Free T4 1.25 uIU/mL (0.32-4.0); Total Protein 7.6 g/dL (6.5-8.0); Triglycerides 94 mg/dL (<150)
[2024-03-05 12:24] LABS: Alkaline Phosphatase 71 U/L (39-117)
[2024-03-08 08:33] LABS: TS Negative Control Passed; TS Panel A 0; TS Panel B 0; TS Positive Control Passed; TSpotTB Negative (Negative)
[2024-03-08 08:44] LABS: HIV RNA PCR Qn Copies Not Detected Copies/mL; HIV RNA PCR Qn Log Copies Not Detected Log cps/mL
== END 2024-03-05 10:26 | disposition home or self-care (01) ==
LOC: HO.HHCL 10:25
PROVIDERS: Visit Provider Internal Medicine
DX: Z11.1 Encounter for screening for respiratory tuberculosis (principal); Z11.4 Encounter for screening for human immunodeficiency virus [HIV]; I10 Essential (primary) hypertension
CPT/HCPCS: 36415; 80053; 80061; 84443; 85025; 86481; 86803; 87536; 87900

== ENCOUNTER 2024-03-17 11:31 | Outpatient (REF) | payer MEDICAID, SELFPAY | END 2024-03-17 11:32 | disposition home or self-care (01) | LOC: HO.MAMMO 11:31 | PROVIDERS: PCP Internal Medicine; Visit Provider Internal Medicine | DX: Z12.31 Encounter for screening mammogram for malignant neoplasm of breast (principal) | CPT/HCPCS: 77063; 77067 ==

== ENCOUNTER → 2024-03-17 12:00 | Outpatient (BNV) | payer MEDICAID, SELFPAY | PROVIDERS: PCP Internal Medicine; Visit Provider Radiology Diagnostic Radiology | DX: Z12.31 Encounter for screening mammogram for malignant neoplasm of breast (principal) | CPT/HCPCS: 77063; 77067 ==

== ENCOUNTER 2024-04-01 12:22 | Emergency (ER) | payer MEDICAID, SELFPAY ==
[2024-04-01 12:41] VITALS: BP 129/81; PULSE 109; RESP 18; TEMP 36; O2SAT 100; BMI 37.7
--- NOTE | 2024-04-01 16:42 | ED_ITS ---
HPI - Ear Problem General Chief complaint: Ear Problems Stated complaint: L Ear Pain Time Seen by Provider: 04/01/24 16:23 Source: patient, RN notes reviewed, old records reviewed and special education educational assistant ([place]) Mode of arrival: ambulatory Limitations: language barrier ([place]an) History of Present Illness HPI Narrative: 58-year-old female with past medical history significant for osteoarthritis, GERD, nicotine dependence presents to the ED today for evaluation of left ear pain x1.5 month. She was seen in the ED on 02/23/2024 and discharged home with oral doxycycline for acute otitis media without resolution. She was then seen again on 03/02/2024 and diagnosed with otitis externa, discharged home with ofloxacin drops which she has been taking without relief. She presents today with continued left ear pain. She has tried to call PCP and ENT however neither accepts her insurance. She has been unable to follow-up outpatient. Denies fever, chills, vision changes, sore throat, cough, sputum production, hearing changes, discharge from the ear, rashes. Denies getting anything in the ear. Denies recent swimming or flights. laboratory animal caretaker utilized throughout visit to communicate with patient. Related Data Home Medications ?Medication ?Instructions ?Recorded ?Confirmed aspirin 325 mg tablet 325 mg PO DAILY 03/11/21 08/16/23 atorvastatin 10 mg tablet 10 mg PO DAILY 03/11/21 08/16/23 aripiprazole 10 mg tablet 10 mg PO QAM 08/07/22 08/16/23 aspirin 81 mg tablet,delayed 81 mg PO DAILY 08/07/22 08/16/23 release atorvastatin 40 mg tablet 40 mg PO DAILY 08/07/22 08/16/23 cholecalciferol (vitamin D3) 25 25 mcg PO DAILY 08/07/22 08/16/23 mcg (1,000 unit) tablet clonazepam 1 mg tablet 1 mg PO BEDTIME 08/07/22 08/16/23 diltiazem HCl 240 mg 240 mg PO DAILY 08/07/22 08/16/23 capsule,extended release 24 hr docusate sodium 100 mg capsule 100 mg PO BID 08/07/22 08/16/23 fluticasone propionate 110 1 puff inhalation BID 08/07/22 08/16/23 mcg/actuation HFA aerosol inhaler (Flovent HFA) fluticasone propionate 50 2 spray intranasal DAILY 08/07/22 08/16/23 mcg/actuation nasal spray,suspension losartan 50 mg tablet 50 mg PO DAILY 08/07/22 08/16/23 omeprazole 20 mg capsule,delayed 20 mg PO DAILY 08/07/22 08/16/23 release spironolactone 100 mg tablet 100 mg PO DAILY 08/07/22 08/16/23 sumatriptan succinate 100 mg tablet 0 mg PO 08/07/22 08/16/23 albuterol sulfate 90 mcg/actuation 2 puff inhalation Q6H PRN wheezing 10/16/22 08/16/23 aerosol inhaler (Proventil HFA) acetaminophen 500 mg tablet 1,000 mg PO Q6H PRN fever 05/11/23 08/16/23 aripiprazole 15 mg tablet 15 mg PO QAM 05/11/23 08/16/23 buspirone 10 mg tablet 10 mg PO 05/11/23 08/16/23 Previous Rx's ?Medication ?Instructions ?Recorded benzonatate 200 mg capsule 200 mg PO TID PRN cough #20 caps 11/16/22 naproxen 500 mg tablet 500 mg PO BID #28 tabs 10/17/23 prednisone 20 mg tablet 40 mg (2 x 20 mg) PO DAILY #8 tabs 10/17/23 doxycycline hyclate 100 mg capsule 100 mg PO BID 10 days #20 caps 02/23/24 ofloxacin 0.3 % ear drops 10 drp otic (ears) DAILY #10 mL 03/02/24 ciprofloxacin 0.3 %-dexamethasone 4 drp otic (ear) left BID 7 days 04/01/24 0.1 % ear drops,suspension #7.5 mL (Ciprodex) Allergies Allergy/AdvReac Type Severity Reaction Status Date / Time Penicillins Allergy Severe RASH, Verified 04/01/24 12:43 SWELLING Review of Systems Review of Systems: Constitutional: No fever, chills, fatigue, night sweats, weight changes ENT/Mouth: +ear pain, No hearing loss, nasal congestion, sinus pain, rhinorrhea, sore throat Eyes: No eye pain, swelling, redness, vision changes, discharge Cardio: No chest pain, palpitations, REED, orthopnea, peripheral edema Pulm: No SOB, cough, sputum, wheezing, dyspnea, hemoptysis GI: No nausea, vomiting, hematemesis, abdominal pain, diarrhea, constipation, hematochezia, melena : No irregular bleeding, dysuria, frequency, urgency, hesitancy, hematuria, flank pain, urinary flow changes, urinary incontinence or retention MSK: No back pain, neck pain, joint pain, myalgias Skin: No lesions, rashes Neuro: No weakness, numbness, paresthesias, LOC, dizziness, headache Psych: No anxiety/panic, depression, SI/HI, AH/VH All other systems reviewed and are negative. [facility] Past Medical History Attestation statement: The following information was validated with the patient. Source: old records reviewed and nursing notes reviewed Medical History Mood disorder Benzodiazepine dependence HTN (hypertension) Migraine without status migrainosus, not intractable Mild persistent asthma without complication Nicotine dependence, cigarettes, uncomplicated Vitamin D deficiency Unspecified hemorrhoids Obesity, unspecified Dependent edema Hypoglycemia Surgical History History of History of tonsillectomy History of colonoscopy History of hemorrhoidectomy History of total abdominal hysterectomy and bilateral salpingo-oophorectomy Social History Social History Patient Tobacco Use Status: Current everyday Tobacco user Tobacco use type: Cigarette Substance Use Type: Marijuana Advance Directives: No Advance Directives Information Provided: No Do you have a plan to hurt others: No Plan Current occupational status: disabled Current occupation: right handed Physical Exam Vital Signs: Vital Signs: Last Vital Signs Temp 97.2 F 04/01/24 17:35 Pulse 100 04/01/24 17:35 Resp 18 04/01/24 17:35 BP 121/78 04/01/24 17:35 Pulse Ox 99 04/01/24 17:35 O2 Del Method Room Air 04/01/24 17:35 BMI result Body Mass Index 37.7 vital signs stable, afebrile Const: General: cooperative, healthy appearing, comfortable and no acute distress Orientation/consciousness: patient oriented x3 Limitations: no limitations HEENT: Other: + Pain with manipulation of left pinna a nd tragus. No mastoid tenderness. Left EAC erythematous and edematous. No discharge. TM intact without erythema, effusion, or bulging. + No pain on manipulation of right pinna or tragus. No mastoid tenderness. Right EAC without erythema, edema or discharge. TM intact without erythema, effusion, or bulging. + posterior oropharynx without erythema or edema. no tonsillar exudates. uvula midline. Head: Yes normal to inspection, Yes No palpable skull fracture present, Yes normocephalic and Yes atraumatic Eyes: General: appearance normal, both eyes and all related structures Conjunctivae: conjunctivae normal Sclerae: sclerae normal Pupils: Equal, round and reactive pupils present Neck: Neck: Yes normal visual inspection, Yes full ROM and Yes no lymphadenopathy Resp: Effort & Inspection: normal respiratory effort and able to speak in complete sentences Auscultation: clear to auscultation bilaterally Cardio: Rate: regular rate Rhythm: regular rhythm Skin: General skin exam: no rashes or lesions noted Neuro: General: patient oriented x3 Cranial nerves: Yes Equal, round and reactive pupils present Course Course Course Narrative: 1714-- Exam consistent with otitis externa left ear. ciprodex sent to pharmacy. Patient has remained stable throughout ED visit today. Discussed worrisome signs and symptoms and when to return to the ED. All questions answered at this time. Patient is agreeable with disposition and stable for discharge.. Medical Decision Making Medical Decision Making MDM Narrative: 58-year-old female with past medical history significant for osteoarthritis, GERD, nicotine dependence presents to the ED today for evaluation of left ear pain x1.5 month. Vital signs stable. afebrile. nontoxic appearing and in nad.Pain with manipulation of left pinna and tragus. No mastoid tenderness. Left EAC erythematous and edematous. No discharge. TM intact without erythema, effusion, or bulging. Differential diagnosis includes otitis externa, otitis media. low suspicion for malignant otitis externa, mastoiditis. Plan for discharge. Differential Diagnosis Differential Diagnoses: The differential diagnosis associated with the presentation includes as above. Admission/Observation not indicated. External Record Review External record reviewed: Inpatient record, Office record, Outpatient record, Prior outpatient labs, Prior outpatient radiology, Primary care record and Outside ED record Prescription Management I considered prescription management with: Antibiotic (ciprodex) Social Determinants Patient?s care significantly limited by Social Determinants of Health including: Other Social Determinant of Health Critical Care Time Critical Care Time Critical Care Time: No Discharge Plan Discharge Clinical Impression: Left otitis externa Patient Disposition: Home, Self-Care Instructions: Otitis Externa (ED) Additional Instructions: You have an external ear infection of the left ear. Ciprodex ear drops have been sent to your pharmacy. Instill 4 drops into the left ear twice daily for the next 7 days. Please follow up with primary care provider. If you do not have a PCP, a referral has been provided to you. You have also been provided with a referral to an ENT doctor. Call them to follow-up. They will not call you. Return with new or worsening symptoms. In the case of an emergency call 911. Prescriptions: New ciprofloxacin-dexamethasone [Ciprodex] 0.3-0.1 % drops,suspension 4 drp otic (ear) left BID 7 Days Qty: 7.5 0RF No Action benzonatate 200 mg capsule 200 mg PO TID PRN (Reason: cough) Qty: 20 0RF prednisone 20 mg tablet 40 mg PO DAILY Qty: 8 0RF naproxen 500 mg tablet 500 mg PO BID Qty: 28 0RF doxycycline hyclate 100 mg capsule 100 mg PO BID 10 Days Qty: 20 0RF ofloxacin 0.3 % drops 10 drp otic (ears) DAILY Qty: 10 0RF atorvastatin 10 mg tablet 10 mg PO DAILY aspirin 325 mg tablet 325 mg PO DAILY fluticasone propionate [Flovent HFA] 110 mcg/actuation HFA aerosol inhaler 1 puff inhalation BID fluticasone propionate 50 mcg/actuation spray,suspension 2 spray intranasal DAILY aripiprazole 10 mg tablet 10 mg PO QAM aspirin 81 mg tablet,delayed release (DR/EC) 81 mg PO DAILY docusate sodium 100 mg capsule 100 mg PO BID clonazepam 1 mg tablet 1 mg PO BEDTIME diltiazem HCl 240 mg capsule,extended release 24hr 240 mg PO DAILY sumatriptan succinate 100 mg tablet 0 mg PO atorvastatin 40 mg tablet 40 mg PO DAILY losartan 50 mg tablet 50 mg PO DAILY omeprazole 20 mg capsule,delayed release(DR/EC) 20 mg PO DAILY cholecalciferol (vitamin D3) 25 mcg (1,000 unit) tablet 25 mcg PO DAILY spironolactone 100 mg tablet 100 mg PO DAILY albuterol sulfate [Proventil HFA] 90 mcg/actuation HFA aerosol inhaler 2 puff inhalation Q6H PRN (Reason: wheezing) buspirone 10 mg tablet 10 mg PO acetaminophen 500 mg tablet 1,000 mg PO Q6H PRN (Reason: fever) aripiprazole 15 mg tablet 15 mg PO QAM Referrals: [facility] [Provider Group] [facility] [place] [facility] [place] [facility] [place] [facility] [place] [facility]] Dov Bustillo [Physician] - Interventions: ED Discharge Assessment Last Done: 04/01/24 17:35 Discharge Date/Time: 04/01/24 17:36 Print Language: [place]
[2024-04-01 17:35] VITALS: BP 121/78; PULSE 100; RESP 18; TEMP 36.2; O2SAT 99
== END 2024-04-01 17:36 | disposition home or self-care (01) ==
PROVIDERS: Emergency Provider Emergency Medicine; PCP Internal Medicine
DX: H60.92 Unspecified otitis externa, left ear (principal); H92.02 Otalgia, left ear; Z79.899 Other long term (current) drug therapy; I10 Essential (primary) hypertension
CPT/HCPCS: 99282; 99283

== ENCOUNTER 2024-04-25 09:19 | Outpatient (AMB) | payer MEDICAID, SELFPAY ==
--- NOTE | 2024-04-25 07:44 | MHC.OFFVIS ---
Intake Visit Reasons: Lung Screening Current smoker Allergies Penicillins Allergy (Severe, Verified 04/01/24 12:43) RASH, SWELLING HPI HPI Lung Screening Current smoker: Details: Initial visit for this 59yo smoker with a 20PYH. Patient has been smoking since age 14 for 45 years at 1/2ppd. Currently at 1-2 a day. . Reports marijuana use. Denies second hand smoke exposure. Denies exposure to chemicals or substances like asbestos. . Denies known family history of lung cancer. Denies personal history of cancers. Denies chest CT in last year. . Denies recent travel outside the [place]. Denies recent respiratory illness or recent hospitalization for respiratory issues. Reports testing positive for COVID. Admits receiving COVID Vaccine. . Denies fever, chills, new/worsening cough, hemoptysis, hoarseness or dysphagia. Denies significant chest pain, significant dyspnea or unintentional weight loss. Patient Lung Cancer Screening Questionnaire reviewed with patient by provider. . Shared Decision Making Completed. Patient meets criteria. Discussed in detail with patient, the risk vs benefit of LDCT screening. Patient consents to proceed with scan. Discussed smoking cessation. [facility] Medical History (Updated 04/25/24 @ 09:50 by Sadia Wu PA-C) Nicotine dependence, cigarettes, uncomplicated Mood disorder Benzodiazepine dependence HTN (hypertension) Migraine without status migrainosus, not intractable Mild persistent asthma without complication Vitamin D deficiency Unspecified hemorrhoids Obesity, unspecified Dependent edema Hypoglycemia Surgical History (Updated 04/21/24 @ 13:07 by Sadia Wu PA-C) Status post insertion of nerve stimulator History of History of tonsillectomy History of colonoscopy History of hemorrhoidectomy History of total abdominal hysterectomy and bilateral salpingo-oophorectomy Social History (Updated 04/25/24 @ 09:51 by Sadia Wu PA-C) Patient Tobacco Use Status: Current everyday Tobacco user Tobacco use type: Cigarette Years Smoked: (onset 14yo, 1/2pd x 45yrs - now 1-2cig/day - 20pyh) Substance Use Type: Marijuana Current occupational status: disabled Current occupation: right handed Assessment & Plan Assessment & Plan (1) Nicotine dependence, cigarettes, uncomplicated: Comment: (curent smoker - onset 14yo - 1/2ppd x 45yrs, now 1-2cig/day - 20PYH) Code(s): F17.210 - Nicotine dependence, cigarettes, uncomplicated Category: Medical Plan: - SDM visit completed today in office. - Patient meets criteria for LDCT for lung cancer screening purposes and is asymptomatic. - Smoking cessation counseling offered. Patients can always call [phone]. - Will arrange for a LDCT scan of the chest for screening purposes at [facility]. - Risks, benefits, and alternatives were discussed in detail and the patient agrees to proceed. - Risks discussed include but are not limited to: radiation exposure, anxiety during testing and while awaiting results, false negatives, false positives and possibility of additional intervention such as further imaging or surgical procedures for benign disease. - Benefits are obviously detection of lung cancer at an early stage which can lead to improved outcomes. - Discussed the importance of screening program compliance with adherence to yearly LDCT scan as scheduled - or sooner interval scans for personalized screening regimen. - Discussed follow up plan. Our office will send a letter discussing results and if needed set up phone call and office visit based on CT findings. - Patient educated on results categorization and the management decisions for suspicious findings potentially found on the screening LDCT scan. Any patient with a Lung RADS score of 3 or 4 will be reviewed by a multidisciplinary team at [facility] to form a plan of action in regards to scan findings. - If further work up is warranted for a suspicious lung finding this will be followed by the Lung Cancer Screening program in conjunction with the Thoracic Surgery Department at [facility]. - A copy of the office note and LDCT will be sent to the patient's PCP - as well as documentation on any associated further plans of care. - Incidental findings on LDCT are the PCP's responsibility. These findings are indicated with an S finding on the LDCT Assessment. A note discussing the findings will be sent to the PCP who is then responsible for further management. - All questions answered.? Coding Level of Care Code Lung Cancer Screening G0296 Diagnoses Nicotine dependence, cigarettes, uncomplicated F17.210
== END 2024-04-25 09:53 | disposition home or self-care (01) ==
PROVIDERS: PCP Internal Medicine; Referring Provider Internal Medicine; Visit Provider Physician Assistant Medical
DX: F17.210 Nicotine dependence, cigarettes, uncomplicated (principal)
CPT/HCPCS: G0296

== ENCOUNTER 2024-04-25 09:51 | Outpatient (REF) | payer MEDICAID, SELFPAY ==
--- NOTE | ~2024-04-25 | CT_ITS ---
EXAMINATION: CT LOW-DOSE SCREENING CHEST WITHOUT CONTRAST CLINICAL INFORMATION: Nicotine dependence, cigarettes, uncomplicated. The patient is a current smoker with a 44 pack-year history of smoking. COMPARISON: X-ray chest 11/16/2022. TECHNIQUE: Multidetector volumetric CT imaging of the chest is performed on a Siemens SOMATOM Definition scanner without contrast using low dose technique. Additional 2D coronal and sagittal reformatted images and axial 3D maximum intensity projection (MIP) images are generated on the CT workstation. This CT examination was performed using dose optimization techniques as appropriate, variously including the following: *Automated exposure control *Adjustment of mA and/or kV according to patient size (this includes techniques or standardized protocols for targeted exams where dose is matched to indication/reason for exam; i.e. extremities or head) *Use of iterative reconstruction technique TOTAL EXAM DLP: 51 mGy-cm. CTDIvol: 1.56 mGy. FINDINGS: PULMONARY NODULES: There is a single tiny right middle lobe 3 mm nodule present (5:249). Some lingular atelectasis is seen. No suspicious pulmonary nodules. LUNGS: Lungs bilaterally symmetrically expanded. Mild emphysematous changes are seen along with mild diffuse bronchial thickening without bronchiectasis. No focal lung nodule or mass. No effusion or pneumothorax. Central airways patent. MEDIASTINUM: No mediastinal, hilar or axillary adenopathy or free fluid collection. CORONARY ARTERY CALCIFICATION: None visualized on this study. THYROID GLAND: Unremarkable to the extent seen. CARDIOVASCULAR STRUCTURES: Aortic and heart size normal. No pericardial effusion. CHEST WALL/AXILLA: Unremarkable. UPPER ABDOMEN: Included portions of the solid organs in the upper abdomen unremarkable on noncontrast imaging. OSSEOUS STRUCTURES: No suspicious focal findings. CT/CT lung screening IMPRESSION: 1. No evidence of pulmonary malignancy. 2. Mild emphysema and bronchial thickening. 3. Incidental findings (S category): No incidental findings. ASSESSMENT: 1. Lung-RADS Category 2: Benign appearance or behavior of nodules. N/A RECOMMENDATION: Continued routine annual low-dose CT lung screening in 1 year is recommended. An order for CT CHEST LOW DOSE CANCER SCREENING ([id number]) can be placed.
== END 2024-04-25 09:52 | disposition home or self-care (01) ==
LOC: HO.CT 09:51
PROVIDERS: PCP Internal Medicine; Visit Provider Physician Assistant Medical
DX: Z12.2 Encounter for screening for malignant neoplasm of respiratory organs (principal); F17.210 Nicotine dependence, cigarettes, uncomplicated
CPT/HCPCS: 71271; G0296

== ENCOUNTER 2024-05-15 14:00 | Outpatient (RCR) | payer MEDICAID, SELFPAY | END 2024-08-22 12:30 | disposition home or self-care (01) | LOC: HO.PT 14:00 | PROVIDERS: PCP Internal Medicine; Visit Provider Internal Medicine | DX: M26.602 Left temporomandibular joint disorder, unspecified (principal) | CPT/HCPCS: 97110; 97112; 97140; 97162 ==

== ENCOUNTER 2024-07-03 08:29 | Outpatient (REF) | payer MEDICAID, SELFPAY ==
--- NOTE | ~2024-07-03 | MR_ITS ---
EXAMINATION: MR TEMPOROMANDIBULAR JOINT, BILATERAL CLINICAL INFORMATION: Left ear/temporal mandibular joint pain with movement. COMPARISON: None available. TECHNIQUE: MR imaging of the bilateral temporomandibular joints was performed using a standard protocol on a high-field strength 1.5 Margarita magnet. Static imaging was performed in the closed and open-mouth positions. Kinematic imaging was performed during dynamic mouth opening. FINDINGS: Evaluation is limited secondary to patient motion. Left temporomandibular joint: In the closed mouth projection, the articular disc is appropriately positioned between the condyle and the articular eminence. No evidence of anterior displacement. There is normal anterior translation of the mandibular condyle in the open-mouth view and the kinematic views. The central aspect of the disc is slightly attenuated which could represent normal variation versus partial tear. No definite full-thickness defect or disc displacement. No significant joint space narrowing or sclerosis. No joint effusion or marrow edema. Right temporomandibular joint: In the closed mouth projection, the articular disc is appropriately positioned between the condyle and the articular eminence. No evidence of anterior displacement. There is normal anterior translation of the mandibular condyle in the open mouth view and the kinematic views. The intra-articular disc is intact without tearing. No significant joint space narrowing or sclerosis. No joint effusion or marrow edema. MR/MR TMJ wo con IMPRESSION: 1. Left temporomandibular joint: Central aspect of the articular disc is slightly attenuated which could represent normal variation versus partial tear. No definite full-thickness defect or disc displacement. Normal anterior translation of the disc in the open-mouth and kinematic views. 2. Right temporomandibular joint: Unremarkable articular disc. Normal anterior translation of the mandibular condyle in the open-mouth and kinematic views. Electronically signed by: Isai Allison MD 07/09/2024 07:23 AM EDT
== END 2024-07-03 08:30 | disposition home or self-care (01) ==
LOC: HO.MRI 08:29
PROVIDERS: PCP Internal Medicine; Visit Provider Internal Medicine
DX: M26.622 Arthralgia of left temporomandibular joint (principal)
CPT/HCPCS: 70336

== ENCOUNTER 2024-12-04 19:15 | Emergency (ER) | payer MEDICAID, SELFPAY ==
[2024-12-04] VITALS (8 sets, daily range): BP systolic 119–153; BP diastolic 51–80; PULSE 75–100; RESP 14–20; TEMP 36.8–37.2; O2SAT 98–99; BMI 29.6
--- NOTE | ~2024-12-04 | XR_ITS ---
CLINICAL HISTORY: cough, fever 1 view chest x-ray Comparison: CR/SR - XR CHEST 1V - 11/16/22 07:47 EST Findings: The lungs are clear. Similar prominent/enlarged cardiac silhouette. No acute fracture. IMPRESSION: 1. No acute findings. This document has been electronically signed by: Isai Guerrero MD on 12/04/2024 20:41:50
--- NOTE | ~2024-12-04 | CT_ITS ---
CLINICAL HISTORY: severe vertigo, CT Head without contrast. CT angiography head and neck with contrast. 3D Postprocessing. Comparison: CT/REG/RI/SR - BRAIN WO IV CONTRAST [id number] - 09/16/19 03:13 EDT Findings: HEAD CT: Scattered subcortical and periventricular hypoattenuation, likely in keeping with chronic small vessel ischemic disease. Parenchymal volume loss with compensatory prominence of the ventricles and CSF spaces. No acute territorial infarction, intracranial hemorrhage, midline shift or hydrocephalus. Empty sella is demonstrated, nonspecific. The visualized paranasal sinuses and mastoid air cells are normal. The orbits are unremarkable. No skull fracture. HEAD AND NECK CTA: Motion and streak artifact limit evaluation. Aortic arch and cervical great vessels are patent. Calcified and noncalcified atheromatous plaques in the bilateral carotid bifurcations with mild less than 50% stenoses. There is extensive motion artifact this level as well extending distally which somewhat limits evaluation of the cervical vasculature. Patent cervical vasculature, considering limitations. Intracranial arteries are patent. No aneurysm, dissection, or occlusion. No abnormal intracranial enhancement. The visualized thyroid gland is unremarkable. No cervical mass or fluid collection. Mild emphysema. Multilevel spondylosis with osteophytosis, uncovertebral hypertrophy, facet arthropathy and degenerative disc disease. IMPRESSION: Motion degraded exam. 1. Unremarkable head CT. 2. Patent head and neck CTA. If clinical concern persists consider follow-up MRI. This document has been electronically signed by: Isai Guerrero MD on 12/04/2024 23:32:15
--- NOTE | 2024-12-04 19:38 | ED_ITS ---
HPI - SOB/Dyspnea General Chief Complaint: Dyspnea Stated Complaint: sob Time Seen by Provider: 12/04/24 19:38 History of Present Illness ED Provider: Rogerio Alvarado MD HPI Narrative: [age] female with history of asthma, obesity, GERD, arthritis she tells me for 2-3 days she has felt short of breath on minimal exertion with dizziness. No chest pain she has had a dry cough and had a fever last night 100.4 orally. She felt short of breath worsening this afternoon and called EMS. It was reported to me that she received a DuoNeb treatment nebulized in route with EMS was not reported to have any hypoxemia. Patient denies hypercoagulable disorder or history of DVT PE she has no leg edema Related Data Home Medications ?Medication ?Instructions ?Recorded ?Confirmed aspirin 325 mg tablet 325 mg PO DAILY 03/11/21 08/16/23 atorvastatin 10 mg tablet 10 mg PO DAILY 03/11/21 08/16/23 aripiprazole 10 mg tablet 10 mg PO QAM 08/07/22 08/16/23 aspirin 81 mg tablet,delayed 81 mg PO DAILY 08/07/22 08/16/23 release atorvastatin 40 mg tablet 40 mg PO DAILY 08/07/22 08/16/23 cholecalciferol (vitamin D3) 25 25 mcg PO DAILY 08/07/22 08/16/23 mcg (1,000 unit) tablet clonazepam 1 mg tablet 1 mg PO BEDTIME 08/07/22 08/16/23 diltiazem HCl 240 mg 240 mg PO DAILY 08/07/22 08/16/23 capsule,extended release 24 hr docusate sodium 100 mg capsule 100 mg PO BID 08/07/22 08/16/23 fluticasone propionate 110 1 puff inhalation BID 08/07/22 08/16/23 mcg/actuation HFA aerosol inhaler (Flovent HFA) fluticasone propionate 50 2 spray intranasal DAILY 08/07/22 08/16/23 mcg/actuation nasal spray,suspension losartan 50 mg tablet 50 mg PO DAILY 08/07/22 08/16/23 omeprazole 20 mg capsule,delayed 20 mg PO DAILY 08/07/22 08/16/23 release spironolactone 100 mg tablet 100 mg PO DAILY 08/07/22 08/16/23 sumatriptan succinate 100 mg tablet 0 mg PO 08/07/22 08/16/23 albuterol sulfate 90 mcg/actuation 2 puff inhalation Q6H PRN wheezing 10/16/22 08/16/23 aerosol inhaler (Proventil HFA) acetaminophen 500 mg tablet 1,000 mg PO Q6H PRN fever 05/11/23 08/16/23 aripiprazole 15 mg tablet 15 mg PO QAM 05/11/23 08/16/23 buspirone 10 mg tablet 10 mg PO 05/11/23 08/16/23 Previous Rx's ?Medication ?Instructions ?Recorded benzonatate 200 mg capsule 200 mg PO TID PRN cough #20 caps 11/16/22 naproxen 500 mg tablet 500 mg PO BID #28 tabs 10/17/23 prednisone 20 mg tablet 40 mg (2 x 20 mg) PO DAILY #8 tabs 10/17/23 doxycycline hyclate 100 mg capsule 100 mg PO BID 10 days #20 caps 02/23/24 ofloxacin 0.3 % ear drops 10 drp otic (ears) DAILY #10 mL 03/02/24 ciprofloxacin 0.3 %-dexamethasone 4 drp otic (ear) left BID 7 days 04/01/24 0.1 % ear drops,suspension #7.5 mL (Ciprodex) albuterol sulfate 90 mcg/actuation 1 puff inhalation QID PRN 12/04/24 aerosol inhaler shortness of breath or wheezing #8.5 grams meclizine 25 mg tablet 50 mg (2 x 25 mg) PO BID PRN 12/04/24 dizziness #14 tabs prednisone 50 mg tablet 50 mg PO DAILY 3 days #3 tabs 12/04/24 Allergies Allergy/AdvReac Type Severity Reaction Status Date / Time Penicillins Allergy Severe RASH, Verified 12/04/24 19:38 SWELLING [facility] Past Medical History Medical History (Updated 12/06/24 @ 00:01 by Boo Clark) Nicotine dependence, cigarettes, uncomplicated Mood disorder Benzodiazepine dependence HTN (hypertension) Migraine without status migrainosus, not intractable Mild persistent asthma without complication Vitamin D deficiency Unspecified hemorrhoids Obesity, unspecified Dependent edema Hypoglycemia Surgical History (Updated 04/21/24 @ 13:07 by Sadia Wu PA-C) Status post insertion of nerve stimulator History of History of tonsillectomy History of colonoscopy History of hemorrhoidectomy History of total abdominal hysterectomy and bilateral salpingo-oophorectomy Social History Social History (Updated 04/25/24 @ 09:51 by Sadia Wu PA-C) Patient Tobacco Use Status: Current everyday Tobacco user Tobacco use type: Cigarette Years Smoked: (onset 14yo, 1/2pd x 45yrs - now 1-2cig/day - 20pyh) Use of substances other than those prescribed or required for medical reasons: Yes Substance Use Type: Crack/Cocaine and Marijuana Advance Directives: No Advance Directives Information Provided: Yes Current occupational status: disabled Current occupation: right handed Physical Exam 2 Vital Signs: Vital Signs: Last Vital Signs Temp 98.3 F 12/04/24 23:54 Pulse 83 12/04/24 23:54 Resp 14 12/04/24 23:54 BP 129/67 12/04/24 23:54 Pulse Ox 98 12/04/24 23:54 O2 Del Method Room Air 12/04/24 23:54 BMI result Body Mass Index 29.6 Const: Other: EXAM: Gen: Alert, awake, slightly anxious without labored breathing or dyspnea. She is speaking full sentences Head: Atraumatic Eyes: Anicteric, Normal conjunctiva. ENT: Moist mucosa, no pallor. ? Neck: Supple. Respiratory: Breathing comfortably, No distress.Clear to auscultation bilaterally, symmetric chest expansion, No wheeze, rales, ronchi. Cardiovascular: Regular rate and rhythm. No murmurs or rub. Well perfused periphery, warm extremities. No edema. ? Abdominal: Soft, no objective distension. No palpable masses or obvious organomegaly. No focal tenderness, no guarding, no rebound tenderness or other peritoneal findings. : No flank tenderness. Neuro: Alert. Gross movement of all extremities intact. ? Vital signs: See flowsheet Medications Administered Discontinued Medications Generic Name Dose Route Start Last Admin Trade Name Freq PRN Reason Stop Dose Admin Albuterol/Ipratropium 3 ml 12/04/24 19:40 12/04/24 20:02 Albuterol/Iprat 2.5/0.5mg 3 Ml Ampul.Neb INHALE 12/04/24 19:41 3 ml ONCE ONE Administration Iohexol 85 ml 12/04/24 22:13 12/04/24 22:13 Iohexol 350 Mg/Ml 100 Ml Infus..Btl IV 12/04/24 22:14 85 ml ONCE ONE Administration Lorazepam 0.5 mg 12/04/24 21:18 12/04/24 22:19 Lorazepam 0.5 Mg Tablet PO 12/04/24 21:19 0.5 mg ONCE ONE Administration Meclizine HCl 50 mg 12/04/24 21:18 12/04/24 22:19 Meclizine Hcl 25 Mg Tablet PO 12/04/24 21:19 50 mg ONCE ONE Administration Methylprednisolone Sodium Succinate 80 mg 12/04/24 19:40 12/04/24 20:52 Methylprednisolone Sod Succ 125 Mg/2 Ml Vial IVPUSH 12/04/24 19:41 80 mg ONCE ONE Administration Ondansetron HCl 4 mg 12/04/24 22:16 12/04/24 22:19 Ondansetron Hcl 4 Mg/2 Ml Vial IVPUSH 12/04/24 22:17 4 mg ONCE ONE Administration Medical Decision Making Medical Decision Making [facility] Narrative: 59-year-old female who is coming in for various symptoms mainly shortness of breath and cough for about 2-3 days as well as dizziness described as vertigo slightly lightheaded and off balance. She denies chronic vertigo but has occasionally felt dizzy. She tells me she has history of asthma and is documented nicotine smoker. No chest pain. No abdominal pain she has felt nauseated. Patient looks mildly ill her lungs are clear and her oxygen sats 100% on room air. Heart rate 90s. She has no motor deficits her face is symmetric and initially on my evaluation she complained more of dyspnea then vertigo. After she received a neb treatment and respiratory medication we reassessed her and she began to complain more of vertigo and tell me more about her subjective imbalance. She has no stroke history but given her age and smoking history and other risk factors felt it reasonable to exclude cervical cranial dissection or intracranial hemorrhage. Less likely to be acute ischemic CVA. Imaging is negative. She does not have pneumonia on chest x-ray either. ECG is without acute ischemic changes. Lab Data 12/04/24 20:36 12/04/24 20:36 Labs: Lab Results 12/04/24 12/04/24 Range/Units 20:36 22:33 WBC 14.4 H (4.8-10.8) X10*3/uL RBC 4.35 (4.20-5.50) X10*6/uL Hgb 13.7 (12.0-16.0) g/dl Hct 40.8 (37.0-47.0) % MCV 93.8 (80.0-98.0) fL MCH 31.5 (27.0-33.0) pg MCHC 33.6 (31.0-35.0) g/dl RDW 12.4 (11.0-16.0) % Plt Count 281 (160-400) X10*3/uL MPV 10.1 (9.4-12.3) fL Immature Gran % (Auto) 0.4 (0.0-0.4) % Neut % (Auto) 74.3 H (45-73) % Lymph % (Auto) 17.3 L (20-40) % [place] % (Auto) 7.0 (2-11) % Eos % (Auto) 0.7 (0-4) % Baso % (Auto) 0.3 (0-2) % Lymph # (Auto) 2.5 (1.2-4.9) X10*3/uL [place] # (Auto) 1.0 (0.1-1.2) X10*3/uL Eos # (Auto) 0.1 (0.0-0.4) X10*3/uL Baso # (Auto) 0.1 (0.0-0.2) X10*3/uL Abs Immat Gran (auto) 0.06 H (0.00-0.03) X10*3/uL Absolute Neuts (auto) 10.7 H (2.0-8.3) x10*3/uL Absolute Nucleated RBC 0.000 (0.0-0.012) X10*3/uL Nucleated RBC % (auto) 0.0 (0.0-0.2) /100WBC Sodium 141 (135-145) mmol/L Potassium 3.4 (3.3-5.1) mmol/L Chloride 109 H (96-108) mmol/L Carbon Dioxide 26 (22-29) mmol/L Anion Gap 9 L (12-20) BUN 12 (9-16) mg/dL Creatinine 0.79 (0.5-1.4) mg/dL Estim Creat Clear Calc 78.4 Estimated GFR > 60 Random Glucose 114 (60-115) mg/dL Calcium 8.9 D (8.4-10.2) mg/dL Troponin I High Sens < 2.7 (<3.5-17.0) ng/L Urine Color Yellow Urine Appearance Clear Urine pH 7.0 (5.0-9.0) Ur Specific [place] >= 1.030 H (1.005-1.025) Urine Protein Negative (Neg-Trace) mg/dL Urine Glucose (UA) Negative (Negative) mg/dL Urine Ketones Negative (Negative) mg/dL Urine Blood Negative (Negative) Urine Nitrite Negative (Negative) Ur Leukocyte Esterase Negative (Negative) Discharge Plan Discharge Clinical Impression: Asthma with exacerbation, Vertigo Patient Disposition: Home, Self-Care Instructions: Asthma (DC), Vertigo (ED) Additional Instructions: _ DISCHARGE DIAGNOSES: Likely exacerbation of underlying asthma and/or COPD probably viral URI, upper respiratory infection Vertigo probably a peripheral cause of vertigo this is a problem in the inner ear structures and less likely to be stroke causing these symptoms. HISTORY OF PRESENTATION: ?Dizziness imbalance cough shortness of breath fever EMERGENCY DEPARTMENT COURSE,TESTS, TREATMENTS: While in the ED today in the emergency department we treated you with a nebulized treatments of albuterol and ipratropium respiratory medications for asthma/COPD. We gave you steroids and nausea medicine and medications for vertigo including meclizine. You had a CT scan of the brain and neck including the vessels which did not show any acute pathology this is reassuring. DISCHARGE MEDICATIONS: ?We have prescribed steroids and albuterol pump as well as medicine to be taken as needed for vertigo see the prescriptions attached take as prescribed FOLLOW-UP: ?Call your primary or general physician soon as possible to discuss your symptoms, your ED visit and to discuss follow up plans Call your primary doctor urgently tomorrow morning discuss your symptoms and follow up closely INSTRUCTIONS ?& RETURN PRECAUTIONS: If any symptoms change first call your primary physician, if it is after-hours your primary doctors office should have a provider sheep boner you can speak with. If the symptoms are severe or very concerning to you then call 911 or return to the ED. Return if you have persistent or severe difficulty walking or generalized unsteadiness or severe vertigo despite treatment Rogerio Alvarado MD Emergency Physician [facility] Prescriptions: New prednisone 50 mg tablet 50 mg PO DAILY 3 Days Qty: 3 0RF albuterol sulfate 90 mcg/actuation HFA aerosol inhaler 1 puff inhalation QID PRN (Reason: shortness of breath or wheezing) Qty: 8.5 0RF meclizine 25 mg tablet 50 mg PO BID PRN (Reason: dizziness) Qty: 14 0RF No Action benzonatate 200 mg capsule 200 mg PO TID PRN (Reason: cough) Qty: 20 0RF prednisone 20 mg tablet 40 mg PO DAILY Qty: 8 0RF naproxen 500 mg tablet 500 mg PO BID Qty: 28 0RF doxycycline hyclate 100 mg capsule 100 mg PO BID 10 Days Qty: 20 0RF ofloxacin 0.3 % drops 10 drp otic (ears) DAILY Qty: 10 0RF ciprofloxacin-dexamethasone [Ciprodex] 0.3-0.1 % drops,suspension 4 drp otic (ear) left BID 7 Days Qty: 7.5 0RF atorvastatin 10 mg tablet 10 mg PO DAILY aspirin 325 mg tablet 325 mg PO DAILY fluticasone propionate [Flovent HFA] 110 mcg/actuation HFA aerosol inhaler 1 puff inhalation BID fluticasone propionate 50 mcg/actuation spray,suspension 2 spray intranasal DAILY aripiprazole 10 mg tablet 10 mg PO QAM aspirin 81 mg tablet,delayed release (DR/EC) 81 mg PO DAILY docusate sodium 100 mg capsule 100 mg PO BID clonazepam 1 mg tablet 1 mg PO BEDTIME diltiazem HCl 240 mg capsule,extended release 24hr 240 mg PO DAILY sumatriptan succinate 100 mg tablet 0 mg PO atorvastatin 40 mg tablet 40 mg PO DAILY losartan 50 mg tablet 50 mg PO DAILY omeprazole 20 mg capsule,delayed release(DR/EC) 20 mg PO DAILY cholecalciferol (vitamin D3) 25 mcg (1,000 unit) tablet 25 mcg PO DAILY spironolactone 100 mg tablet 100 mg PO DAILY albuterol sulfate [Proventil HFA] 90 mcg/actuation HFA aerosol inhaler 2 puff inhalation Q6H PRN (Reason: wheezing) buspirone 10 mg tablet 10 mg PO acetaminophen 500 mg tablet 1,000 mg PO Q6H PRN (Reason: fever) aripiprazole 15 mg tablet 15 mg PO QAM Interventions: ED Discharge Assessment Last Done: 12/04/24 23:54 Discharge Date/Time: 12/05/24 01:21 Print Language: Kosovan
--- NOTE | 2024-12-04 19:40 | ECG_ITS ---
Test Reason : SOB Blood Pressure : */* mmHG Vent. Rate : 75 BPM Atrial Rate : 75 BPM P-R Int : 110 ms QRS Dur : 84 ms QT Int : 390 ms P-R-T Axes : 105 136 141 degrees QTcB Int : 435 ms Suspect limb lead reversal, interpretation assumes no reversal Sinus rhythm with short AL Right axis deviation Pulmonary disease pattern Abnormal ECG When compared with ECG of 16-Nov-2022 07:08, Vent. rate has decreased by 38 bpm QRS axis Shifted right T wave inversion now evident in Lateral leads Referred By: Rogerio Alvarado Electronically Signed By: ROBERT PECK MD
[2024-12-04] MEDS: Albuterol/Iprat 2.5/0.5MG 3 ML AMPUL.NEB INHALE (20:02)
[2024-12-04 20:41] LABS: MANUAL DIFF FLAG NO
[2024-12-04 20:48] LABS: Basophils Absolute Auto 0.1 X10*3/uL (0.0-0.2); Basophils Percent Auto 0.3 % (0-2); Eosinophils Absolute Auto 0.1 X10*3/uL (0.0-0.4); Eosinophils Percent Auto 0.7 % (0-4); Hematocrit 40.8 % (37.0-47.0); Hemoglobin 13.7 g/dl (12.0-16.0); Imm Gran Abs Auto 0.06 X10*3/uL (0.00-0.03); Imm Gran Pct Auto 0.4 % (0.0-0.4); Lymphocytes Absolute Auto 2.5 X10*3/uL (1.2-4.9); Lymphocytes Percent Auto 17.3 % (20-40); Mean Corpuscular HGB Conc 33.6 g/dl (31.0-35.0); Mean Corpuscular Hemoglobin 31.5 pg (27.0-33.0); Mean Corpuscular Volume 93.8 fL (80.0-98.0); Mean Platelet Volume 10.1 fL (9.4-12.3); Neutrophils Absolute Auto 10.7 x10*3/uL (2.0-8.3); Neutrophils Percent Auto 74.3 % (45-73); Platelet Count 281 X10*3/uL (160-400); Red Blood Count 4.35 X10*6/uL (4.20-5.50); Red Cell Distribution Width 12.4 % (11.0-16.0); White Blood Count 14.4 X10*3/uL (4.8-10.8)
[2024-12-04] MEDS: methylPREDNISolone Sod Succ 125 MG/2 ML VIAL 80 MG IVPUSH (20:52)
[2024-12-04 21:04] LABS: Anion Gap 9 (12-20); Blood Urea Nitrogen 12 mg/dL (9-16); Calcium 8.9 mg/dL (8.4-10.2); Carbon Dioxide 26 mmol/L (22-29); Chloride 109 mmol/L (96-108); Creatinine Clr Calc Pharmacy 78.4; Estimated Glomerular Filt Rate > 60; Glucose Random 114 mg/dL (60-115); Potassium 3.4 mmol/L (3.3-5.1); Sodium 141 mmol/L (135-145)
[2024-12-04 21:14] LABS: Troponin-I High Sensitivity < 2.7 ng/L (<3.5-17.0)
[2024-12-04] MEDS: iohexoL 350 MG/ML 100 ML INFUS..BTL 85 ML IV (22:13)
[2024-12-04] MEDS: LORazepam 0.5 MG TABLET PO (22:19)
[2024-12-04] MEDS: ondansetron HCL 4 MG/2 ML VIAL IVPUSH (22:19)
[2024-12-04] MEDS: Meclizine HCl 25 MG TABLET 50 MG PO (22:19)
--- NOTE | 2024-12-04 22:25 | PC.NURSE ---
patient awake and alert. skin pwd, resp even and non labored, speaking in full, clear sentences. NSR via tele. patient c/o nausea and dizziness. medicated per orders
[2024-12-04 22:43] LABS: Appearance Urine Clear; Color Urine Yellow; Glucose Urine UA Negative (Negative); Leukocyte Esterase Urine Negative (Negative); Nitrite Urine Negative (Negative); Specific Gravity - Urine >= 1.030 (1.005-1.025); Urine Blood Negative (Negative); Urine Ketones Negative (Negative); Urine Protein Negative (Neg-Trace)
--- NOTE | 2024-12-04 22:54 | PC.NURSE ---
patient states nausea and dizziness are resolved post meds
== END 2024-12-05 01:21 | disposition home or self-care (01) ==
PROVIDERS: Emergency Provider Emergency Medicine
DX: J45.901 Unspecified asthma with (acute) exacerbation (principal); R42 Dizziness and giddiness; R06.02 Shortness of breath; R05.9 Cough, unspecified; R94.31 Abnormal electrocardiogram [ECG] [EKG]; R50.9 Fever, unspecified; Z79.899 Other long term (current) drug therapy
CPT/HCPCS: 36415; 70496; 70498; 71045; 80048; 81003; 84484; 85025; 93005; 94640; 96374; 96375; 99284; 99285; J2405; J2919; Q9967

== ENCOUNTER → 2024-12-04 19:40 | Outpatient (BNV) | payer MEDICAID, SELFPAY | PROVIDERS: Emergency Provider Emergency Medicine; Visit Provider Internal Medicine Cardiovascular Disease | DX: R94.31 Abnormal electrocardiogram [ECG] [EKG] (principal) | CPT/HCPCS: 93010 ==

== ENCOUNTER → 2024-12-04 19:40 | Outpatient (BNV) | payer MEDICAID, SELFPAY | PROVIDERS: Emergency Provider Emergency Medicine; Visit Provider Radiology Diagnostic Radiology | DX: H81.399 Other peripheral vertigo, unspecified ear (principal) | CPT/HCPCS: 70496; 70498 ==

== ENCOUNTER 2025-03-02 09:22 | Emergency (ER) | payer MEDICAID, SELFPAY ==
--- NOTE | ~2025-03-02 | XR_ITS ---
EXAMINATION: XR FINGERS RIGHT HISTORY: pain COMPARISON: There are no prior studies available for comparison. FINDINGS: Three views of the right middle finger are submitted. The bones are osteopenic. There is no fracture or dislocation. The joint spaces are preserved. The soft tissues are unremarkable. XR/XR finger RT min 2V IMPRESSION: Osteopenia. Otherwise unremarkable examination of the right middle finger. Electronically signed by: Marcos Condon MD 03/02/2025 10:22 AM EDT
[2025-03-02 09:43] VITALS: BP 127/69; PULSE 92; RESP 16; TEMP 36.1; O2SAT 96; BMI 29.7
--- NOTE | 2025-03-02 09:46 | ED_ITS ---
HPI - URI/Sore Throat General Stated Complaint: R Hand Pain Related Data Home Medications ?Medication ?Instructions ?Recorded ?Confirmed aspirin 325 mg tablet 325 mg PO DAILY 03/11/21 08/16/23 atorvastatin 10 mg tablet 10 mg PO DAILY 03/11/21 08/16/23 aripiprazole 10 mg tablet 10 mg PO QAM 08/07/22 08/16/23 aspirin 81 mg tablet,delayed 81 mg PO DAILY 08/07/22 08/16/23 release atorvastatin 40 mg tablet 40 mg PO DAILY 08/07/22 08/16/23 cholecalciferol (vitamin D3) 25 25 mcg PO DAILY 08/07/22 08/16/23 mcg (1,000 unit) tablet clonazepam 1 mg tablet 1 mg PO BEDTIME 08/07/22 08/16/23 diltiazem HCl 240 mg 240 mg PO DAILY 08/07/22 08/16/23 capsule,extended release 24 hr docusate sodium 100 mg capsule 100 mg PO BID 08/07/22 08/16/23 fluticasone propionate 110 1 puff inhalation BID 08/07/22 08/16/23 mcg/actuation HFA aerosol inhaler (Flovent HFA) fluticasone propionate 50 2 spray intranasal DAILY 08/07/22 08/16/23 mcg/actuation nasal spray,suspension losartan 50 mg tablet 50 mg PO DAILY 08/07/22 08/16/23 omeprazole 20 mg capsule,delayed 20 mg PO DAILY 08/07/22 08/16/23 release spironolactone 100 mg tablet 100 mg PO DAILY 08/07/22 08/16/23 sumatriptan succinate 100 mg tablet 0 mg PO 08/07/22 08/16/23 albuterol sulfate 90 mcg/actuation 2 puff inhalation Q6H PRN wheezing 10/16/22 08/16/23 aerosol inhaler (Proventil HFA) acetaminophen 500 mg tablet 1,000 mg PO Q6H PRN fever 05/11/23 08/16/23 aripiprazole 15 mg tablet 15 mg PO QAM 05/11/23 08/16/23 buspirone 10 mg tablet 10 mg PO 05/11/23 08/16/23 Previous Rx's ?Medication ?Instructions ?Recorded benzonatate 200 mg capsule 200 mg PO TID PRN cough #20 caps 11/16/22 naproxen 500 mg tablet 500 mg PO BID #28 tabs 10/17/23 prednisone 20 mg tablet 40 mg (2 x 20 mg) PO DAILY #8 tabs 10/17/23 doxycycline hyclate 100 mg capsule 100 mg PO BID 10 days #20 caps 02/23/24 ofloxacin 0.3 % ear drops 10 drp otic (ears) DAILY #10 mL 03/02/24 ciprofloxacin 0.3 %-dexamethasone 4 drp otic (ear) left BID 7 days 04/01/24 0.1 % ear drops,suspension #7.5 mL (Ciprodex) albuterol sulfate 90 mcg/actuation 1 puff inhalation QID PRN 12/04/24 aerosol inhaler shortness of breath or wheezing #8.5 grams meclizine 25 mg tablet 50 mg (2 x 25 mg) PO BID PRN 12/04/24 dizziness #14 tabs prednisone 50 mg tablet 50 mg PO DAILY 3 days #3 tabs 12/04/24 Allergies Allergy/AdvReac Type Severity Reaction Status Date / Time Penicillins Allergy Severe RASH, Verified 03/02/25 09:45 SWELLING [facility] Past Medical History Medical History (Updated 12/06/24 @ 00:01 by Boo Clark) Nicotine dependence, cigarettes, uncomplicated Mood disorder Benzodiazepine dependence HTN (hypertension) Migraine without status migrainosus, not intractable Mild persistent asthma without complication Vitamin D deficiency Unspecified hemorrhoids Obesity, unspecified Dependent edema Hypoglycemia Surgical History (Updated 04/21/24 @ 13:07 by Sadia Wu PA-C) Status post insertion of nerve stimulator History of History of tonsillectomy History of colonoscopy History of hemorrhoidectomy History of total abdominal hysterectomy and bilateral salpingo-oophorectomy Social History Social History (Updated 04/25/24 @ 09:51 by Sadia Wu PA-C) Patient Tobacco Use Status: Current everyday Tobacco user Tobacco use type: Cigarette Years Smoked: (onset 14yo, 1/2pd x 45yrs - now 1-2cig/day - 20pyh) Substance Use Type: Crack/Cocaine and Marijuana Current occupational status: disabled Current occupation: right handed Course Course Course Narrative: This is an RME: Additional HPI, ROS, PE not included below will be deferred to primary provider. RME assessment and note performed by: Ana Villagran PA-C This is a [id number], asthma, obesity, GERD, arthritis, who presents to the ER with a complaint of right 3rd digit pain x 3 days. No trauma or injury. Patient with range of motion full however patient with trigger finger noted of the 3rd digit. Patient with tenderness palpation along the digit. Plan: X-ray, further ER evaluation needed. Discharge Plan Discharge Prescriptions: No Action benzonatate 200 mg capsule 200 mg PO TID PRN (Reason: cough) Qty: 20 0RF prednisone 20 mg tablet 40 mg PO DAILY Qty: 8 0RF naproxen 500 mg tablet 500 mg PO BID Qty: 28 0RF doxycycline hyclate 100 mg capsule 100 mg PO BID 10 Days Qty: 20 0RF ofloxacin 0.3 % drops 10 drp otic (ears) DAILY Qty: 10 0RF ciprofloxacin-dexamethasone [Ciprodex] 0.3-0.1 % drops,suspension 4 drp otic (ear) left BID 7 Days Qty: 7.5 0RF prednisone 50 mg tablet 50 mg PO DAILY 3 Days Qty: 3 0RF albuterol sulfate 90 mcg/actuation HFA aerosol inhaler 1 puff inhalation QID PRN (Reason: shortness of breath or wheezing) Qty: 8.5 0RF meclizine 25 mg tablet 50 mg PO BID PRN (Reason: dizziness) Qty: 14 0RF atorvastatin 10 mg tablet 10 mg PO DAILY aspirin 325 mg tablet 325 mg PO DAILY fluticasone propionate [Flovent HFA] 110 mcg/actuation HFA aerosol inhaler 1 puff inhalation BID fluticasone propionate 50 mcg/actuation spray,suspension 2 spray intranasal DAILY aripiprazole 10 mg tablet 10 mg PO QAM aspirin 81 mg tablet,delayed release (DR/EC) 81 mg PO DAILY docusate sodium 100 mg capsule 100 mg PO BID clonazepam 1 mg tablet 1 mg PO BEDTIME diltiazem HCl 240 mg capsule,extended release 24hr 240 mg PO DAILY sumatriptan succinate 100 mg tablet 0 mg PO atorvastatin 40 mg tablet 40 mg PO DAILY losartan 50 mg tablet 50 mg PO DAILY omeprazole 20 mg capsule,delayed release(DR/EC) 20 mg PO DAILY cholecalciferol (vitamin D3) 25 mcg (1,000 unit) tablet 25 mcg PO DAILY spironolactone 100 mg tablet 100 mg PO DAILY albuterol sulfate [Proventil HFA] 90 mcg/actuation HFA aerosol inhaler 2 puff inhalation Q6H PRN (Reason: wheezing) buspirone 10 mg tablet 10 mg PO acetaminophen 500 mg tablet 1,000 mg PO Q6H PRN (Reason: fever) aripiprazole 15 mg tablet 15 mg PO QAM Print Language: Croatian
--- NOTE | 2025-03-02 11:51 | ED.EXTPRO ---
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 She denies any recent trauma or injury. No repetitious movements. She states this her right middle finger feels as though it gets stuck and she was unable to flex or extend. Denies history of similar symptoms in the past. No fevers or chills. No overlying redness. No other complaints or concerns at this time. Relieving factors: nothing Exacerbating factors: nothing Associated symptoms: denies other symptoms Related Data Home Medications ?Medication ?Instructions ?Recorded ?Confirmed aspirin 325 mg tablet 325 mg PO DAILY 03/11/21 08/16/23 atorvastatin 10 mg tablet 10 mg PO DAILY 03/11/21 08/16/23 aripiprazole 10 mg tablet 10 mg PO QAM 08/07/22 08/16/23 aspirin 81 mg tablet,delayed 81 mg PO DAILY 08/07/22 08/16/23 release atorvastatin 40 mg tablet 40 mg PO DAILY 08/07/22 08/16/23 cholecalciferol (vitamin D3) 25 25 mcg PO DAILY 08/07/22 08/16/23 mcg (1,000 unit) tablet clonazepam 1 mg tablet 1 mg PO BEDTIME 08/07/22 08/16/23 diltiazem HCl 240 mg 240 mg PO DAILY 08/07/22 08/16/23 capsule,extended release 24 hr docusate sodium 100 mg capsule 100 mg PO BID 08/07/22 08/16/23 fluticasone propionate 110 1 puff inhalation BID 08/07/22 08/16/23 mcg/actuation HFA aerosol inhaler (Flovent HFA) fluticasone propionate 50 2 spray intranasal DAILY 08/07/22 08/16/23 mcg/actuation nasal spray,suspension losartan 50 mg tablet 50 mg PO DAILY 08/07/22 08/16/23 omeprazole 20 mg capsule,delayed 20 mg PO DAILY 08/07/22 08/16/23 release spironolactone 100 mg tablet 100 mg PO DAILY 08/07/22 08/16/23 sumatriptan succinate 100 mg tablet 0 mg PO 08/07/22 08/16/23 albuterol sulfate 90 mcg/actuation 2 puff inhalation Q6H PRN wheezing 10/16/22 08/16/23 aerosol inhaler (Proventil HFA) acetaminophen 500 mg tablet 1,000 mg PO Q6H PRN fever 05/11/23 08/16/23 aripiprazole 15 mg tablet 15 mg PO QAM 05/11/23 08/16/23 buspirone 10 mg tablet 10 mg PO 05/11/23 08/16/23 Previous Rx's ?Medication ?Instructions ?Recorded benzonatate 200 mg capsule 200 mg PO TID PRN cough #20 caps 11/16/22 naproxen 500 mg tablet 500 mg PO BID #28 tabs 10/17/23 prednisone 20 mg tablet 40 mg (2 x 20 mg) PO DAILY #8 tabs 10/17/23 doxycycline hyclate 100 mg capsule 100 mg PO BID 10 days #20 caps 02/23/24 ofloxacin 0.3 % ear drops 10 drp otic (ears) DAILY #10 mL 03/02/24 ciprofloxacin 0.3 %-dexamethasone 4 drp otic (ear) left BID 7 days 04/01/24 0.1 % ear drops,suspension #7.5 mL (Ciprodex) albuterol sulfate 90 mcg/actuation 1 puff inhalation QID PRN 12/04/24 aerosol inhaler shortness of breath or wheezing #8.5 grams meclizine 25 mg tablet 50 mg (2 x 25 mg) PO BID PRN 12/04/24 dizziness #14 tabs prednisone 50 mg tablet 50 mg PO DAILY 3 days #3 tabs 12/04/24 naproxen 500 mg tablet 500 mg PO BID PRN pain #30 tabs 03/02/25 Allergies Allergy/AdvReac Type Severity Reaction Status Date / Time Penicillins Allergy Severe RASH, Verified 03/02/25 09:45 SWELLING Review of Systems Review of Systems: Yes all other systems are reviewed and are negative Constitutional: Constitutional: Reports as per [facility] Past Medical History Medical History (Updated 03/02/25 @ 11:54 by ADAM Larsen) Nicotine dependence, cigarettes, uncomplicated Mood disorder Benzodiazepine dependence HTN (hypertension) Migraine without status migrainosus, not intractable Mild persistent asthma without complication Vitamin D deficiency Unspecified hemorrhoids Obesity, unspecified Dependent edema Hypoglycemia Surgical History (Updated 04/21/24 @ 13:07 by Sadia Wu PA-C) Status post insertion of nerve stimulator History of History of tonsillectomy History of colonoscopy History of hemorrhoidectomy History of total abdominal hysterectomy and bilateral salpingo-oophorectomy Social History Social History (Updated 04/25/24 @ 09:51 by Sadia Wu PA-C) Patient Tobacco Use Status: Current everyday Tobacco user Tobacco use type: Cigarette Years Smoked: (onset 14yo, 1/2pd x 45yrs - now 1-2cig/day - 20pyh) Substance Use Type: Crack/Cocaine and Marijuana Advance Directives: No Advance Directives Information Provided: Yes Current occupational status: disabled Current occupation: right handed Physical Exam Vital Signs: Vital Signs: Last Vital Signs Temp 97.0 F 03/02/25 12:09 Pulse 92 03/02/25 12:09 Resp 16 03/02/25 12:09 BP 127/69 03/02/25 12:09 Pulse Ox 96 03/02/25 12:09 O2 Del Method Room Air 03/02/25 12:09 BMI result Body Mass Index 29.7 Const: Other: General: Awake, alert, and oriented X3. No acute distress. HEENT: Normal inspection CVS: Normal heart rate and rhythm. Pulses normal. Respiratory: No respiratory distress Skin: Warm, dry, no rashes noted to exposed skin. Normal skin color. Normal skin turgor. Extremities: Right middle finger, with good ROM however patient's PIP does become stuck for several second upon extension. She also does have point tenderness palpation along the distal MCP. No overlying skin changes, erythema, warmth, or edema. Strong radial pulse. No open wounds or lacerations. Neuro: Oriented X 3. No motor deficit. No sensory deficit. Medical Decision Making Medical Decision Making MDM Narrative: This is a 59-year-old female who presents emergency department with complaints of right middle finger pain and feeling as though her finger becomes stuck for several sec with range of motion. On arrival, vital signs within normal limits. Patient with good ROM however does appear to have stuck PIP with extension. X-ray was obtained, revealing mild osteopenia. Differential diagnoses include flexor tenosynovitis, stenosis tenosynovitis, sprain, strain. Symptoms as well as physical exam concerning for stenosing tenosynovitis. Patient requesting splint as patient is continuously performing ROM of her finger causing her to have pain. I discussed with patient to stop doing this as well as take anti-inflammatories. Stressed the importance of following up with geophysical support specialist. She understands agrees with plan. Patient stable for discharge. Differential Diagnosis Differential Diagnoses: The differential diagnosis associated with the presentation includes See above Radiology Impression Discussion of test interpretation with radiology: I have reviewed the radiologist's reading. Radiologist Impression: [address] [address] XRay Report Signed Patient: Irena Rivers MR#: [id number] : 1965 Acct:[id number] Age/Sex: 59 / F ADM Date: 03/02/25 Loc: .ED Attending Dr: Ordering Physician: Ana Villagran Date of Service: 03/02/25 Procedure(s): XR finger RT min 2V Accession Number(s): [id number] cc: Montrell Bardales MD; Ana Villagran~ EXAMINATION: XR FINGERS RIGHT HISTORY: pain COMPARISON: There are no prior studies available for comparison. FINDINGS: Three views of the right middle finger are submitted. The bones are osteopenic. There is no fracture or dislocation. The joint spaces are preserved. The soft tissues are unremarkable. XR/XR finger RT min 2V IMPRESSION: Osteopenia. Otherwise unremarkable examination of the right middle finger. Electronically signed by: Marcos Condon MD 03/02/2025 10:22 AM EDT Dictated By: Marcos Condon MD Procedures Orthopedic Splinting/Casting Injury #1: Side: right Upper Extremity Injury Location: finger Upper Extremity Immobilizer: aluminum form splint Discharge Plan Discharge Clinical Impression: Trigger finger Patient Disposition: Home, Self-Care Instructions: Tenosynovitis (ED), Trigger Finger (ED) Additional Instructions: You were seen in the emergency department due to right middle finger pain. Your x-ray of your finger shows osteopenia. Otherwise no other abnormalities. You likely have a condition called trigger finger. This occurs when you have inflammation and swelling of the tendon making it difficult for the tendons to move in the way that they are supposed to. You need to follow-up with the geophysical support specialist for further management. Wear splint for comfort only. You do not need to wear this. Take anti-inflammatories as this can help with your symptoms. If any new or worsening symptoms occur including but not limited to redness, swelling, fevers or chills, please seek emergent care. Prescriptions: New naproxen 500 mg tablet 500 mg PO BID PRN (Reason: pain) Qty: 30 0RF No Action benzonatate 200 mg capsule 200 mg PO TID PRN (Reason: cough) Qty: 20 0RF prednisone 20 mg tablet 40 mg PO DAILY Qty: 8 0RF naproxen 500 mg tablet 500 mg PO BID Qty: 28 0RF doxycycline hyclate 100 mg capsule 100 mg PO BID 10 Days Qty: 20 0RF ofloxacin 0.3 % drops 10 drp otic (ears) DAILY Qty: 10 0RF ciprofloxacin-dexamethasone [Ciprodex] 0.3-0.1 % drops,suspension 4 drp otic (ear) left BID 7 Days Qty: 7.5 0RF prednisone 50 mg tablet 50 mg PO DAILY 3 Days Qty: 3 0RF albuterol sulfate 90 mcg/actuation HFA aerosol inhaler 1 puff inhalation QID PRN (Reason: shortness of breath or wheezing) Qty: 8.5 0RF meclizine 25 mg tablet 50 mg PO BID PRN (Reason: dizziness) Qty: 14 0RF atorvastatin 10 mg tablet 10 mg PO DAILY aspirin 325 mg tablet 325 mg PO DAILY fluticasone propionate [Flovent HFA] 110 mcg/actuation HFA aerosol inhaler 1 puff inhalation BID fluticasone propionate 50 mcg/actuation spray,suspension 2 spray intranasal DAILY aripiprazole 10 mg tablet 10 mg PO QAM aspirin 81 mg tablet,delayed release (DR/EC) 81 mg PO DAILY docusate sodium 100 mg capsule 100 mg PO BID clonazepam 1 mg tablet 1 mg PO BEDTIME diltiazem HCl 240 mg capsule,extended release 24hr 240 mg PO DAILY sumatriptan succinate 100 mg tablet 0 mg PO atorvastatin 40 mg tablet 40 mg PO DAILY losartan 50 mg tablet 50 mg PO DAILY omeprazole 20 mg capsule,delayed release(DR/EC) 20 mg PO DAILY cholecalciferol (vitamin D3) 25 mcg (1,000 unit) tablet 25 mcg PO DAILY spironolactone 100 mg tablet 100 mg PO DAILY albuterol sulfate [Proventil HFA] 90 mcg/actuation HFA aerosol inhaler 2 puff inhalation Q6H PRN (Reason: wheezing) buspirone 10 mg tablet 10 mg PO acetaminophen 500 mg tablet 1,000 mg PO Q6H PRN (Reason: fever) aripiprazole 15 mg tablet 15 mg PO QAM Referrals: [facility] Orthopedic Surgeons [Provider Group] Interventions: ED Discharge Assessment Last Done: 03/02/25 12:09 Discharge Date/Time: 03/02/25 12:10 Print Language: New Zealander
[2025-03-02 12:09] VITALS: BP 127/69; PULSE 92; RESP 16; TEMP 36.1; O2SAT 96
--- OUTSIDE RECORDS SUMMARY | 2025-03-02 13:22 | XMS_ITS | Encounter Summary ---
Author Organization [employer] Address [address] [facility] [address] [place] [address] Care Team Providers Care Inbound Telemarketer Name Role Phone Montrell Bardales MD Primary Care Prov ider Reason for Visit * Reason Comments Pre-visit Planning Pre visit planning u nable to LVM Encounter Details Date Type Department Care Team ([facility] st Contact Info) Description 02/27/2025 Patient Outreach [facility] [address] [place] [address] Montrell Bardales MD [address] [place] [id number] Pre-visit Planning (Pre visit planning unable to LVM ) Social History Tobacco Use Types Packs/Day Years Used Date Smoking Tobacco: Former Cigarettes 0.2 42.3 S tarted: 1983 Smokeless Tobacco: Never Alcohol Use Standard Drinks/Week Comments Not Currently 0 (1 standard drink = 0.6 oz pur e alcohol) Depression Answer Date Recorded Patient Health Questionnaire-9 Score 0 02/27/2024 Patient Health Questionnaire-9 Score 0 02/27/2024 Last PHQ-9: Questionnaire Data Not on file 0 02/27/2024 Housing Stability Answer Date Recorded What is your housing situation today? I have housing today, but I am worried about losing housing in the future 01/23/[address] you li ve. Do you have problems with any of the following? Pests such as bugs, ants, or mice 01/23/2024 Food Insecurity Answer Date Recorded Within the past 12 months, y ou worried that your food would run out before you got money to buy more: Never True 09/03/2023 Within the past 12 months,th e food you bought just didn't last and you didn't have enough money to get more: Never True Transportation Answer Date Recorded In the past 12 months, has l ack of transportation kept you from medical appts, meetings, work or from getting things needed for daily living? No 09/03/2023 Utilities Answer Date Recorded In the past 12 months, has t he electric, gas, oil or water company threatened to shut off services in your home? No 09/03/2023 Depression Answer Date Recorded Patient Health Questionnaire-2 Score 0 02/27/2024 Comments Unknown Sex and Gender Information Value Date Recorded Sex Assigned at Female 09/18/2022 10:20 AM EDT Legal Sex Female 10:20 AM EDT Gender Identity Female 09/18/2022 10:20 AM EDT Sexual Orientation Choose not to disclose 2021 10:20 AM EDT documented as of this encounter Progress Notes * Paul Carter - 02/27/2025 9:46 AM EDT CC Paul Hunter placed outbound call to patient to complete pre-visit planning. No answer at this time. Patient name and were not confirmed. CC unable to leave a message due to [phone] mailbox is full. documented in this encounter Plan of Treatment Upcoming Encounters Date Type Department Care Team ([facility] st Contact Info) Description 03/10/2025 9:00 AM EDT Office Visit [facility] MED & PEDS [address] [place] [address] Montrell Bardales MD [address] [place] [address] documented as of this encounter Visit Diagnoses Not on filedocumented in this encounter Additional Health Concerns Assessment Noted Time PHQ-9 Depression Total Score: 0 02/27/20 24 8:55 AM EDT documented as of this encounter Care Teams Inbound Telemarketer Relationship Specialty Start Date End Date Montrell Bardales MD [address] [place] [address] PCP - General Internal Medicine 04/18/20 documented as of this encounter
--- OUTSIDE RECORDS SUMMARY | 2025-03-02 13:22 | XMS_ITS | Encounter Summary ---
Author Organization [employer] Address [address] [facility] [address] [place] [address] Care Team Providers Care Lens Mounter Name Role Phone Montrell Bardales MD Primary Care Prov ider Encounter Details Date Type Department Care Team (Late st Contact Info) Description 03/02/2025 Orders Only [facility] External Provider, [facility] Social History Tobacco Use Types Packs/Day Years Used Date Smoking Tobacco: Former Cigarettes 0.2 42.3 S tarted: 1982 Smokeless Tobacco: Never Alcohol Use Standard Drinks/Week [...] AM EDT documented as of this encounter Plan of Treatment Upcoming Encounters Date Type Department Care Team (Late st Contact Info) Description 03/10/2025 9:00 AM EDT Office Visit [facility] PEDS [address] [place] [address] BainsMontrell Mendoza MD [address] [place] [address] documented as of this encounter Procedures Procedure Name Priority Date/Time Associated Diagnosis Comments XR FINGERS 2+ VIEWS RIGHT Routine 03/02/2025 10:07 AM EDT documented in this encounter Results * XR Fingers 2+ Views Right (03/02/2025 10:07 AM EDT) Anatomical Region Laterality Modality Upper Extremities, Fingers Right Radio graphic Imaging 03/02/2025 10:0 7 AM EDT Narrative 03/02/2025 10:25 AM EDT ? [facility] ?[address] ?[place] [address] ?XRay Report ? Signed ? Patient: Alex Connor,Irena M ?MR# ?? : [id number] ? : 1965 ?Acct:[id number] ? Age/Sex: 59 / F ?ADM Date: 04/14/25 ? Loc: HO.ED ? Attending Dr: ? Ordering Physician: Ana Villagran ?? Date of Service: 03/02/25 ?? Procedure(s): XR finger RT min 2V ?? Accession Number(s): [id number] ? cc: Montrell Bardales MD; Ana Villagran ? EXAMINATION: ??XR FINGERS RIGHT ? HISTORY: pain ? COMPARISON: There are no prior studies available for comparison. ? FINDINGS: ? Three views of the right middle finger are submitted. ??The bones are ?? osteopenic. ??There is no fracture or dislocation. ??The joint spaces are ?? preserved. ??The soft tissues are unremarkable. ? XR/XR finger RT min 2V ?? IMPRESSION: ? Osteopenia. Otherwise unremarkable examination of the right middle ?? finger. ? Electronically signed by: ??Marcos Condon MD ??03/02/2025 10:22 AM EDT ?? RP ? Dictated By: ?Marcos Condon MD ? Signed By: ?<Electronically signed by Marcos Condon MD in OV> ?03/02/25 1022 ? DD/ 1007 ? TD/TT: 03/02/25 1013 ? Merchant Mariner: ? Procedure Note Donkathieter, Image - 03/02/2025 [place] [address] XRay Report Signed Patient: Irena Rivers MMR# : [id number] : 1965Acct:[id number] Age/Sex: 59 / FADM Date: 03/02/25 Loc: HO.ED Attending Dr: Ordering Physician: Ana Villagran Date of Service: 03/02/25 Procedure(s): XR finger RT min 2V Accession Number(s): [id number] cc: Montrell Bardales MD; Ana Villagran EXAMINATION: XR FINGERS RIGHT HISTORY: pain COMPARISON: There are no prior studies available for comparison. FINDINGS: Three views of the right middle finger are submitted. The bones are osteopenic. There is no fracture or dislocation. The joint spaces are preserved. The soft tissues are unremarkable. XR/XR finger RT min 2V IMPRESSION: Osteopenia. Otherwise unremarkable examination of the right middle finger. Electronically signed by: Marcos Condon MD 03/02/2025 10:22 AM EDT Dictated By: Marcos Condon MD Signed By: <Electronically signed by Marcos Condon MD in OV> 03/02/25 1022 DD/ 1007 TD/TT: 03/02/25 1013 Merchant Mariner: [facility] External Provider IMG XR PROCEDURES Edited Result - Final documented in this encounter Visit Diagnoses Not on filedocumented in this encounter Additional Health Concerns Assessment Noted Time PHQ-9 Depression Total Score: 0 02/27/20 24 8:55 AM EDT documented as of this encounter Care Teams Lens Mounter Relationship Specialty Start Date End Date Montrell Bardales MD [address] [place] [id number] PCP - General Internal Medicine 04/18/20 documented as of this encounter
--- OUTSIDE RECORDS SUMMARY | 2025-03-02 13:22 | XMS_ITS | Encounter Summary ---
Author Organization [facility] [facility] Address [address] [facility] [address] [place] [address] Care Team Providers Care Game Preserve Manager Name Role Phone Montrell Bardales MD Primary Care Prov ider Encounter Details Date Type Department Care Team (Late Contact Info) Description 05/09/2023 Orders Only [facility] MED & PEDS [address] [place] [address] Montrell Bardales MD [address] [place] [address] Social History Tobacco Use Types Packs/Day Years Used Date Smoking Tobacco: Never Assessed Comments Unknown Sex and Gender Information Value Date Recorded Sex Assigned at Female 09/18/2022 10:20 AM EDT Legal Sex Female 10:20 AM EDT Gender Identity Female 09/18/2022 10:20 AM EDT Sexual Orientation Choose not to disclose 2021 10:20 AM EDT documented as of this encounter Plan of Treatment Upcoming Encounters Date Type Department Care Team (Late Contact Info) Description 03/10/2025 9:00 AM EDT Office Visit [facility]EDS [address] [place] [address] Montrell Bardales MD [address] [place] [address] documented as of this encounter Visit Diagnoses Not on filedocumented in this encounter Care Teams Game Preserve Manager Relationship Specialty Start Date End Date Montrell Bardales MD [address] [place] [address] PCP - General Internal Medicine 04/18/20 documented as of this encounter
--- OUTSIDE RECORDS SUMMARY | 2025-03-02 13:22 | XMS_ITS | Clinical Summary ---
Author Organization [employer] Address [address] [facility] 7[address] [place] [address] Care Team Providers Care Engineering Consultant Name Role Phone Montrell Bardales MD Primary Care Prov ider Allergies Active Allergy Reactions Criticality Noted Date Comments Chlorthalidone Hives 02/28/2022 Penicillin G 03/19/2012 Medications Blood Pressure kit 1 kit in the morning. 1 kit 3 Active SUMAtriptan (Imitrex) 50 MG tablet Take 1 tablet (50 mg) by mouth 1 (one) time if needed for migraine for up to 9 doses. May repeat dose once in 2 hours if no relief. Do not exceed 2 doses in 24 hours. 9 tablet 4 Active Asmanex HFA 100 MCG/ACT aerosol INHALE 1 PUFF TWICE DAILY. RINSE MOUTH AFTER USING. 13 g 5 4 Active docusate sodium (Colace) 100 MG capsule TAKE 1 CAPSULE BY MOUTH TWICE DAILY 180 capsule 3 4 Active losartan (Cozaar) 100 MG tabletIndications:P rimary hypertension TAKE 1 TABLET BY MOUTH EVERY MORNING 90 tablet 3 4 Active atorvastatin (Lipitor) 40 MG tabletIndications:M ixed hyperlipidemia TAKE 1 TABLET BY MOUTH EVERY MORNING 90 tablet 3 4 Active Ventolin HFA 108 (90 Base) MCG/ACT inhaler INHALE 2 PUFFS BY MOUTH EVERY 6 HOURS NEEDED FOR WHEEZING 18 g 11 4 Active cyclobenzaprine (Flexeril) 10 MG tablet Take 1 tablet (10 mg) by mouth 2 times daily for 20 days. 40 tablet 4 Active meloxicam (Mobic) 7.5 MG tablet Take 1 tablet (7.5 mg) by mouth 2 times daily. 60 tablet 11 4 10/27/20 25 Active cholecalciferol (Vitamin D-3) 25 MCG tablet TAKE 1 TABLET BY MOUTH EVERY MORNING 90 tablet 1 4 Active Acetaminophen Extra Strength 500 MG tabletIndications:P ain in other joint TAKE 2 TABLETS BY MOUTH EVERY 6 HOURS NEEDED FOR PAIN OR FEVER 60 tablet 4 5 Active omeprazole (PriLOSEC) [address] capsuleIndications: Gastroesophageal reflux disease, unspecified whether esophagitis present TAKE 1 CAPSULE BY MOUTH EVERY MORNING 30-60 MINUTES BEFORE A MEAL 90 capsule 3 5 Active fluticasone (Flonase) 50 MCG/ACT nasal sprayIndications:Se asonal allergies USE 2 SPRAYS IN EACH NOSTRIL EVERY DAY 48 g 1 5 Active Active Problems Problem Noted Date Diagnosed Date History of tooth extraction 07/14/2024 Missing teeth, acquired 06/12/2024 Arthralgia of left temporomandibular joint 05/26 Assessment & Plan (12/24/2024 10:13 AM EST): Follow up with ENT, avoid chewing, Assessment & Plan (07/22/2024 10:50 AM EDT): Mri discussed with patient, no major finding that could explain her pain, pending ent evalaution, will add gabapentin Assessment & Plan (05/26/2024 4:40 PM EDT): Pain has not improved, will order MRI, and will refer to ENT for evaluation, no sign of ear infection Screening for lung cancer 02/27/2024 Assessment & Plan (02/27/2024 12:42 PM EDT): >20 pack year, will refer for lung cancer screening Primary hypertension 06/20/2023 Assessment & Plan (12/24/2024 10:13 AM EST): Controlled, keep bp log, keep low sodium diet and exercise as tolerated Assessment & Plan (07/22/2024 10:49 AM EDT): Controlled, continue low sodium diet and exercise as tolerated, keep bp log, bp target <140/90 Assessment & Plan (02/27/2024 12:41 PM EDT): Controlled, continue home monitoring, on losartan 100mg and diltiazem, keep low sodium diet and exercise as tolerated Assessment & Plan (10/18/2023 10:10 AM EST): Controlled, last 3 days as follow 130/82,129/81-139/84, continue losartan 100mg, reinforced low sodium diet and exercise as tolerated Assessment & Plan (09/13/2023 12:00 PM EDT): Not on target, will increase losartan to 100mg, reviewed lifestyle modifications, follow up in 1 month Assessment & Plan (06/20/2023 10:14 AM EDT): Patient refers her bp machine is not working, will order new kit, saw cardiology found with moderate aortic stenosis (asymptomatic). Encounter for screening mamm ogram for malignant neoplasm of breast 06/20/2023 Screening for colon cancer 06/20/2023 Assessment & Plan (02/27/2024 12:41 PM EDT): Patient missed appointment she will call office back and book a new appointment Nonrheumatic aortic valve stenosis 06/20/2023 Hyperlipidemia 08/27/2018 Encounters Date Type Department Care Team Description 03/02/2025 Orders Only [facility] External Provider, [facility] 02/27/2025 Patient Outreach [facility] [address] [place] [address] Montrell Bardales MD Pre-visit Planning (Pre visit planning unable to LVM ) 01/30/2025 Population Health Risk Score [facility] ([facility] Department [address] [place] [id number] Provider, Population Health Generic 12/24/2024 8:30 AM EST Office Visit [facility] [address] [place] [address] Montrell Bardales MD Primary hypertension (Primary Dx); Dietary counseling; Exercise counseling; Arthralgia of left temporomandibular joint; Dizziness 12/24/2024 Travel 12/21/2024 Refill [facility] [address] [place] [address] Montrell Bardales MD Gastroesophageal reflux disease, unspecified whether esophagitis present; Seasonal allergies 12/15/2024 Telephone [facility] [address] [place] [address] Montrell Bardales MD ER Follow-up 12/13/2024 Refill [facility] [address] [place] [address] Layne Brantley MD Pain in other joint from Last 3 Months Immunizations Name Administration Dates Next Due Influenza Injectable Quadriv alant Preservative Free IIV4 MDCK 08/24/2022,10/11/2021 Influenza injectable quadriv alent IIV4 with preservative 08/27/2018 Influenza injectable quadriv alent preservative free 08/13/2020,12/25/2016 Influenza, IIV3, injectable 08/13/2014 Moderna Covid-19 Vaccine 12+ 11/14/2021,03/29/20 21,03/01/2021 Pfizer Covid-19 Vaccine 12+ Bivalent 11/27/2022 Tdap 06/13/2016 Zoster, Recombinant 03/20/2022,05/13/2021 Social History Tobacco Use Types Packs/Day Years Used Date Smoking Tobacco: Former Cigarettes 0.2 42.3 S tarted: 1982 Smokeless Tobacco: Never Tobacco Cessation:Counseling Given: Not Answered Alcohol Use Standard Drinks/Week Comments Not Currently [...] not to disclose 2021 10:20 AM EDT Last Filed Vital Signs Vital Sign Reading Time Taken Comments Blood Pressure 128/76 12/24/2024 8:34 AM EST Pulse 82 12/24/2024 8:34 AM EST Temperature 36.3 ??C (97.4 ??F) 12/24/2024 8:34 AM ES T Respiratory Rate 20 12/24/2024 8:34 AM EST Oxygen Saturation 98% 12/24/2024 8:34 AM EST Inhaled Oxygen Concentration - - Weight 83.1 kg (183 lb 3.2 oz) 12/24/2024 8:34 A M EST Height 164 cm (5' 4.57 ) 12/24/2024 8:34 AM EST Body Mass Index 30.9 12/24/2024 8:34 AM EST Plan of Treatment Upcoming Encounters Date Type Department Care Team (Late st Contact Info) Description 03/10/2025 9:00 AM EDT Office Visit [facility] [address] [place] [address] Montrell Bardales MD [address] [place] [phone] Health Maintenance Due Date Last Done Comments CT Colonography 1965 Colonoscopy 1965 Colorectal Cancer Screening 1965 FIT DNA/Cologuard 1965 FIT 1965 FOBT 1965 HIV Screening 1965 Sigmoidoscopy 1965 Pneumococcal Vaccine: 50+ Years (1 of 2 - PCV) 1982 Dental Oral Exam 08/31/2017 02/28/2017, , 09/27/2009 Dental Prophylaxis 11/25/2017 05/24/2017, 1 , 09/05/2013, Additional history exists Dental X-Ray: Bitewings 03/01/2018 02/29/20 17, 09/15/2014, 07/30/2012 RSV Patients and Patients Aged 60 years or older (1 - Risk 60-74 years 1-dose series) 2023 COVID-19 Vaccine ( season) 2024 11/27/2022, 11/14/2021, 03/29/2021, Additional history exists SDOH Screening 01/22/2025 01/23/2024 Depression Screening 02/26/2025 02/27/2024, 02/27/20 Tobacco Screening 07/14/2025 07/14/2024 Alcohol/Substance Use Screening 12/24/2025 12/24/2024 Mammogram 03/17/2026 03/17/2024, 05/19, 07/12/2018 DTaP/Tdap/Td Vaccines (2 - Td or Tdap) 06/13/2026 06/13/2016 Dental X-Ray: Full Mouth 06/13/2027 06/12/2024, 07/20 Lipid Panel 03/05/2029 03/05/2024, 1107/2023, 02/03/2022, Additional history exists Zoster Vaccines Completed 03/20/2022, 05/13/2021 Hepatitis C Screening Completed 03/05/2024 Influenza Vaccine Completed 10/13/2024, , 08/24/2022, Additional history exists HIB Vaccines Aged Out No longer eligi ble based on patient's age to complete this topic HPV Vaccines Aged Out No longer eligi ble based on patient's age to complete this topic Hepatitis A Vaccines Aged Out No long er eligible based on patient's age to complete this topic Hepatitis B Vaccines Aged Out No long er eligible based on patient's age to complete this topic IPV Vaccines Aged Out No longer eligi ble based on patient's age to complete this topic Meningococcal Vaccine Aged Out No carolina alana eligible based on patient's age to complete this topic RSV under 20 months Aged Out No longe r eligible based on patient's age to complete this topic Rotavirus Vaccines Aged Out No longer eligible based on patient's age to complete this topic Procedures Procedure Name Priority Date/Time Associated Diagnosis Comments XR FINGERS 2+ VIEWS RIGHT Routine 03/02/2025 10:07 AM EDT PANORAMIC RADIOGRAPHIC IMAGE Routine 06/12/2024 10:00 AM EDT BI MAMMOGRAM SCREENING TOMOSYNTHESIS BILATERAL Routine 03/17/2024 12:00 PM EDT HEPATITIS C AB W/REFL TO HCV RNA, QN, PCR Routine 03/05/2024 10:27 AM EDT Primary hypertension LIPID PANEL, STANDARD Routine 03/05/2024 10:27 AM EDT Primary hypertension PROPHYLAXIS - ADULT Routine 05/24/2017 1 2:00 AM EDT BITEWINGS - 4 RADIOGRAPHIC IMAGES Routine 02/28/2017 12:00 AM EDT PERIODIC ORAL EVALUATION - ESTABLISHED PATIENT Routine 02/28/2017 12:00 AM EDT from Last 3 Months or Most Recently Relevant to Health Maintenance Results * XR Fingers 2+ Views Right (03/02/2025 10:07 AM EDT) Anatomical Region Laterality Modality Upper Extremities, Fingers Right Radio graphic Imaging 03/02/2025 10:0 7 AM EDT Narrative 03/02/2025 10:25 AM EDT ? [facility] [facility] ?[address] ?[place] [address] ?XRay Report ? Signed ? Patient: Alex Connor,Irena M ?MR# ?? : [id number] ? : 1965 ?Acct:[id number] ? Age/Sex: 59 / F ?ADM Date: 03/02/25 ? Loc: HO.ED ? Attending Dr: ? Ordering Physician: Ana Villagran ?? Date of Service: 03/02/25 ?? Procedure(s): XR finger RT min 2V ?? Accession Number(s): [id number] ? cc: Montrell Bardales MD; Ana Villagran [...] DD/ 1007 ? TD/TT: 03/02/25 1013 ? Invasive Physician: ? Procedure Note Donkathieter, Image - 03/02/[address] [address] XRay Report Signed Patient: Irena Rivers MMR# : [id number] : 1965Acct:[id number] Age/Sex: 59 / FADM Date: 03/02/25 Loc: HO.ED Attending Dr: Ordering Physician: Ana Villagran Date of Service: 03/02/25 Procedure(s): XR finger RT min 2V Accession Number(s): [id number] cc: Montrell Bardales MD; Ana Villagran EXAMINATION: [...] Marcos Condon MD 03/02/2025 10:22 AM EDT RP Dictated By: Marcos Condon MD Signed By: <Electronically signed by Marcos Condon MD in OV> 03/02/25 1022 DD/ 1007 TD/TT: 03/02/25 1013 Invasive Physician: [facility] External Provider IMG XR PROCEDURES Edited Result - Final * BI Mammogram Screening Tomosynthesis Bilateral (03/17/2024 12:00 PM EDT) Anatomical Region Laterality Modality Breast Bilateral Mammography 03/17/2024 12:0 0 PM EDT Narrative 04/13/2024 6:18 AM EDT ? [facility] ? [address] ?[place] [address] ? Mammography Report ? Signed ? Patient: Irena Rivers ?MR# ?? : [id number] ? : 1965 ?Acct:[id number] ? Age/Sex: 58 / F ?ADM Date: 04/29/24 ? Loc: HO.MAMMO ? Attending Dr: Montrell Connor MD ? Ordering Physician: Montrell Bardales MD ?Res ?? ults: 1Negative ? Date of Service: 03/17/24 ?Follow Up: 1 Year From Orig ?? inal Mammogram ? Procedure(s): MM tomosynthesis screening BI ?? Accession Number(s): [id number] ? cc: Montrell Bardales MD ? EXAMINATION: ?? MM SCREENING DIGITAL BREAST TOMOSYNTHESIS, BILATERAL ? CLINICAL INFORMATION: ? Screening. Asymptomatic. ? COMPARISON: ?? Mammography: This study is compared with prior exams dating back to ?? 2018. ? TECHNIQUE: ?? Digital breast tomosynthesis is performed in both the craniocaudal and ?? mediolateral oblique views along with computer-aided detection (CAD). ?? Synthesized 2D images are generated from the tomosynthesis. ? FINDINGS: ?? There are scattered areas of fibroglandular density (ACR BI-RADS breast ?? composition Category b). ? There are no significant masses, abnormal calcifications, or other ?? abnormalities. ? MM/MM tomosynthesis screening BI ?? IMPRESSION: ?? No mammographic evidence of malignancy. ? ASSESSMENT: ? BI-RADS BI-RADS 1 - Negative ? RECOMMENDATION: ?? Routine annual mammography screening. ? 1 year F/U ? This examination should not preclude the clinical evaluation of a ?? suspicious palpable abnormality. ? This patient's information was entered into a reminder system with a ?? target due date for their next mammogram. ? Dictated By: ?Krystle Garza MD ? Signed By: ?<Electronically signed by Krystle Garza MD in OV> ? 04/13/246[address] ? DD/ 1200 ? TD/TT: ? Invasive Physician: ? Procedure Note Kalee, Armani - 04/13/2024 [facility] [address] [place] [address] Dr. Briones, [place] [address] Mammography Report Signed Patient: Irena Rivers MMR# : [id number] : 1965Acct:[id number] Age/Sex: 58 / FADM Date: 03/17/24 Loc: HO.MAMMO Attending Dr: Montrell Connor MD Ordering Physician: Montrell Bardales ults: 1Negative Date of Service: 03/17/24Follow Up: 1 Year From Orig ina Mammogram Procedure(s): MM tomosynthesis screening BI Accession Number(s): [id number] cc: Montrell Bardales MD EXAMINATION: MM SCREENING DIGITAL BREAST TOMOSYNTHESIS, BILATERAL CLINICAL INFORMATION: Screening. Asymptomatic. COMPARISON: Mammography: This study is compared with prior exams dating back to 2018. TECHNIQUE: Digital breast tomosynthesis is performed in both the craniocaudal and mediolateral oblique views along with computer-aided detection (CAD). Synthesized 2D images are generated from the tomosynthesis. FINDINGS: There are scattered areas of fibroglandular density (ACR BI-RADS breast composition Category b). There are no significant masses, abnormal calcifications, or other abnormalities. MM/MM tomosynthesis screening BI IMPRESSION: No mammographic evidence of malignancy. ASSESSMENT: BI-RADS BI-RADS 1 - Negative RECOMMENDATION: Routine annual mammography screening. 1 year F/U This examination should not preclude the clinical evaluation of a suspicious palpable abnormality. This patient's information was entered into a reminder system with a target due date for their next mammogram. Dictated By: Krystle Garza MD Signed By: <Electronically signed by Krystle Garza MD in OV> 04/13/24 0614 DD/ 1200 TD/TT: Invasive Physician: us Montrell Connor MD IMG BI PROCEDURES Final Result * Hepatitis C Antibody with Reflex to HCV, RNA, Quantitative, Real-Time PCR (03/05/2024 10:27 AM EDT) Hepatitis C Antibody Nonreactive Nonreactive [facility] Comment:Antibodies to HCV no t detected; does not exclude early acuteHCV infection. Blood Venous blood specimen / Unknown 03/05/2024 10:27 AM EDT 03/05/2024 11:23 AM EDT us Montrell Connor MD LAB BLOOD ORDERABL ES Final Result Performing Organization Address [facility] Co de Phone Number [facility] [address] [place] [address] [phone] * (ABNORMAL) Lipid Panel, Standard (03/05/2024 10:27 AM EDT) Triglycerides 94 <150 mg/dL [facility] Comment:Desirable Triglyceri de: less than 150 mg/dLBorderline High Triglyceride 150-199 mg/dLHigh Triglyceride: 200-499 mg/dLVery High Triglyceride: greater than or equal to 5OO mg/dL Cholesterol 125 <200 mg/dL [facility] Comment:Desirable Cholestero l: less than 200 mg/dLBorderline High Cholesterol: 200-239 mg/dLHigh Cholesterol: greater than 239 mg/dL LDL Cholesterol Calculated 74 <100 mg/dL [facility] Comment:Desirable LDL: less than 100 mg/dLNear Optimal/Above Optimal LDL: 110- 129 mg/dLBorderline High LDL: 130-159 mg/dLHigh LDL: 160-189 mg/dLVery High LDL: greater than or equal to 190 mg/dL HDL Cholesterol 33(L) >40 mg/dL [facility] Comment:Desirable HDL: great er than 40 mg/dL Note: This HDL assay may give artificially low results in patients with liver disease. Blood Venous blood specimen / Unknown 03/05/2024 10:27 AM EDT 03/05/2024 11:23 AM EDT us Montrell Connor MD LAB BLOOD ORDERABL ES Final Result Performing Organization Address [facility] Co de Phone Number [facility] [address] [place] [address] [phone] from Last 3 Months or Most Recently Relevant to Health Maintenance Insurance [facility] MEDICAID [address] [place] [phone] Care Teams Engineering Consultant Relationship Specialty Start Date End Date Montrell Bardales MD [address] [place] [phone] PCP - General Internal Medicine 04/18/20
--- OUTSIDE RECORDS SUMMARY | 2025-03-02 13:22 | XMS_ITS | Encounter Summary ---
Author Organization [facility] Address [address] [facility] [address] [place] [address] Care Team Providers Care Online Marketer Name Role Phone Montrell Bardales MD Primary Care Prov ider Encounter Details Date Type Department Care Team (Late st Contact Info) Description 04/06/2023 Orders Only [facility] [address] [place] [address] Inge Yepez LPN Social History Tobacco Use Types Packs/Day Years [...] Description 03/10/2025 9:00 AM EDT Office Visit [facility] [address] [place] [address] Montrell Bardales MD [address] [place] [address] documented as of this encounter Visit Diagnoses Not on filedocumented in this encounter Care Teams Online Marketer Relationship Specialty Start Date End Date Montrell Bardales MD [address] [place] [address] PCP - General Internal Medicine 04/18/20 documented as of this encounter
--- OUTSIDE RECORDS SUMMARY | 2025-03-02 13:22 | XMS_ITS | Data Portability ---
Author Organization [place] - [facility], Allergy Address [address] [place] [address] Care Team Providers Care Civil Cadd Technician Name Role Phone SHUBHAM VAZQUEZ Primary Care Provider Assessment Encounter Date Assessment Date Assessment LastModified by Organization Details LastModified Time 08/27/2024 08/27/2024 Patient appears to have significant left-sided TMJ. She reports nocturnal bruxism, worse pain with yawning and chewing. She recalls working with physical therapy where they massage her shoulders with no relief to her jaw joint and otalgia. A jaw joint program was reviewed including warm compress, gentle massage, soft food and use of anti-inflammato ry such as Motrin. Offered a referral to physical therapy where they can work specifically on the jaw joint. Also encouraged her to follow-up with her dental care provider. No other signs of infection or mass to better explain her symptoms [email or web address] Not available 08/27/2024 15:26:54 Plan of Treatment Reminders Order Date Submit Date Provider Last Modified By Organization Details Last Modified Time Details Appointments None recorded. Lab None recorded. Referral physical therapist referral - Appt 09/05 @ 1pm. Needs french interpret er. 2023 024 [email or web address] 2 [facility], [address] [facility], 1st Floor, [place], [address], 15:28:49 Procedures None recorded. Surgeries None recorded. Imaging None recorded. Medication Orders None recorded. Patient TargetsNo targets recorded. Patient InstructionsNo instructions recorded. Reason for Referral Physical Therapist Referral for Pain of left temporomandibular joint Appt 09/05 @ 1pm. Needs full time staff interpreter. Referring Physician: Jere Allen, Otolaryngology, Encounter Date: 08/27/2024 Problems Name Problem SNOMED Code Status Onset Date Resolution Date Notes Provider Name and Address Organization Details Recorded Time Otalgia of left ear 4853316629 Active 2023 JERE ALLEN MD 100 [facility] 100, [place], [address], [facility] 4 15:23:35 Pain of left temporomand ibular joint 1399671471468 9107 Active 2023 JERE ALLEN MD [address] [facility] 100, [place], [address], [facility] 4 15:23:44 Problem Notes None recorded. Medical Equipment None Reported. Allergies Allergen ID Allergen Name Allergen Category Reaction Reaction Severity Criticality Documentation Date Start Date Code Code System Note Provider Name and Address Organization Details Recorded Time 699430 Product containin g penicilli n (product) medicatio n Not available Not available Not available 08/27/2024 25929 8001 SNOMED Charo Rody [facility] 15:06:31 Medications Name Sig Start Date Stop Date Status Note LastModified by Organization Details LastModified Time medbox status USE DIRECTED 08/27 completed Not Available Not Available Not Available atorvastati n 40 mg tablet TAKE 1 TABLET BY MOUTH EVERY MORNING active Not Available Not Available No t Available doxycycline hyclate 100 mg capsule TAKE 1 CAPSULE BY MOUTH TWICE DAILY FOR 10 DAYS 08/27 completed Not Available Not Available Not Available diltiazem CD 240 mg capsule,ext ended release 24 hr TAKE 1 CAPSULE BY MOUTH EVERY MORNING active Not Available Not Available No t Available prednisone 20 mg tablet TAKE 2 TABLETS BY MOUTH EVERY DAY FOR 5 DAYS 08/27 completed Not Available Not Available Not Available clonazepam 1 mg tablet TAKE 1 TABLET BY MOUTH AT BEDTIME active Not Available Not Available No t Available sumatriptan 50 mg tablet TAKE 1 TABLET BY MOUTH AT ONSET OF MIGRAINE. MAY REPEAT ONCE AFTER 2 HOURS IF NEEDED DO NOT EXCEED 2 DOSES EVERY 24 HOURS 08/27 completed Not Available Not Available Not Available aspirin 81 mg tablet,kimberly yed release TAKE 1 TABLET BY MOUTH EVERY MORNING active Not Available Not Available No t Available acetaminoph en 500 mg tablet TAKE 2 TABLETS BY MOUTH EVERY 6 HOURS NEEDED FOR PAIN OR FEVER 08/27 completed Not Available Not Available Not Available ofloxacin 0.3 % ear drops PUT 10 DROPS INTO THE AFFECTED EAR(S) ONCE DAILY 08/27 completed Not Available Not Available Not Available buspirone 10 mg tablet TAKE 1 TABLET BY MOUTH TWICE DAILY IN THE MORNING AND IN THE EVENING active Not Available Not Available No t Available docusate sodium 100 mg capsule TAKE 1 CAPSULE BY MOUTH TWICE DAILY 08/27 completed Not Available Not Available Not Available gabapentin 300 mg capsule TAKE 1 CAPSULE BY MOUTH THREE TIMES DAILY 08/27 completed Not Available Not Available Not Available omeprazole 20 mg capsule,del ayed release TAKE 1 CAPSULE BY MOUTH EVERY MORNING 30-60 MINUTES BEFORE A MEAL active Not Available Not Available No t Available losartan 100 mg tablet TAKE 1 TABLET BY MOUTH EVERY MORNING active Not Available Not Available No t Available fluticasone propionate 50 mcg/actuati on nasal spray,suspe nsion USE 2 SPRAYS IN EACH NOSTRIL EVERY DAY 08/27 completed Not Available Not Available Not Available naproxen 500 mg tablet TAKE 1 TABLET BY MOUTH TWICE DAILY 08/27 completed Not Available Not Available Not Available Ventolin HFA 90 mcg/actuati on aerosol inhaler INHALE 2 PUFFS BY MOUTH EVERY 6 HOURS NEEDED FOR WHEEZING active Not Available Not Available No t Available aripiprazol e 10 mg tablet TAKE 1 TABLET BY MOUTH EVERY MORNING active Not Available Not Available No t Available aripiprazol e 20 mg tablet TAKE 1 TABLET BY MOUTH EVERY MORNING 08/27 completed Not Available Not Available Not Available ciprofloxac in 0.3 %-dexametha sone 0.1 % ear drops,suspe nsion PLACE 4 DROPS IN THE LEFT EAR TWICE DAILY FOR 7 DAYS 08/27 completed Not Available Not Available Not Available cholecalcif christina (vitamin D3) 25 mcg (1,000 unit) tablet TAKE 1 TABLET BY MOUTH EVERY MORNING active Not Available Not Available No t Available Asmanex HFA 100 mcg/actuati on aerosol inhaler INHALE 1 PUFF TWICE DAILY. RINSE MOUTH AFTER USING. active Not Available Not Available No t Available Vitals Date Recorded Body height Body mass index (BMI) Body weight Provider Name and Address Organization Details Last Updated DateTime 08/27/2024 165.1 cm 31 kg/m2 17724.18 g Charo Fine [place] - [facility] 08/27/2024 15:05:25 Social History None recorded. Functional Status None recorded. Mental Status None recorded. Family History Nothing Reported. Medical History Condition Response Arthritis Y Migraines Y Anxiety Y Depression Y Gynecological HistoryNo gynecological history recorded. Obstetrics History GPAL:G 0 P 0 0 0 0 Past Encounters Encounter ID Performer Location Encounter Start Date Encounter Closed Date Diagnosis/Indication Diagnosis SNOMED-CT Code Diagnosis ICD10 Code Diagnosis Note [id number] JERE ALLEN MD [facility] [address] [address] 08/27/2024 14:26:09 08/27/2024 15:26:00 Otalgia of left ear 3055822855 H92.02 Pain of le ft temporomandibular joint 2316176547 1598133 M26.622 Health Concerns Section Related Observation LastModified by Organization Detai ls LastModified Time None Recorded Concern Status LastModified by Organization Details LastModified Time None Recorded Advance Directives Directive None Recorded Payers Encounter Date Sequence Insurance Name Policy Number Policy Logan Covered Member ID Logan Member ID Guarantor Name 08/27/2024 1 MEDICAID-[place]: [id number] Irena Vazquez [id number] Irena Vazquez Notes Date Note Type Note Provider Name and Address Organization Details Recorded Time 08/27/2024 text/html ipad - spanishle ft otalgiahx of TMJonset about 03/2024had some dental work on a bridgeER visit rx some drops, then steroid drops, PO abx with no reliefwent to physical therapy but not for the jaw jointworse with yawn or chew+ nocturnal bruxism JERE ALLEN MD [address] [place] [address], [phone], [place] - [facility] 08/27/2024 15:27:10 OBGyn Episode No OBEpisode recorded.
--- OUTSIDE RECORDS SUMMARY | 2025-03-02 13:22 | XMS_ITS | Encounter Summary ---
Author Organization [employer] Address [address] [facility] 7t [place] [address] Care Team Providers Care Psychiatric Assistant Name Role Phone Montrell Bardales MD Primary Care Prov ider Encounter Details Date Type Department Care Team (Late Contact Info) Description 08/14/2023 Orders Only [facility] MED & PEDS [address] [place], [place] [phone] Mira Hendrickson LPN Social History Tobacco Use Types Packs/Day Years Used Date Smoking Tobacco: Former Cigarettes 0.2 42.3 S tarted: 1983 Smokeless Tobacco: Never Alcohol Use Standard Drinks/Week Comments Not Currently 0 (1 standard drink = 0.6 oz pur e alcohol) Depression Answer Date Recorded Patient Health Questionnaire-9 Score 14 06/20/2023 Depression Answer Date Recorded Patient Health Questionnaire-2 Score 6 06/20/2023 Comments Unknown Sex and Gender Information Value [...] Description 03/10/2025 9:00 AM EDT Office Visit [facility] MED & PEDS [address] [place], [place] [phone] Montrell Bardales MD [address] [place] [address] documented as of this encounter Visit Diagnoses Not on filedocumented in this encounter Additional Health Concerns Assessment Noted Time PHQ-9 Depression Total Score: 14 023 9:04 AM EDT documented as of this encounter Care Teams Psychiatric Assistant Relationship Specialty Start Date End Date Montrell Bardales MD [address] [place] [address] PCP - General Internal Medicine 04/18/20 documented as of this encounter
--- OUTSIDE RECORDS SUMMARY | 2025-03-02 13:22 | XMS_ITS | Encounter Summary ---
Author Organization [employer] Address [address] [facility] 7t [place] [address] Care Team Providers Care Loaf Counter Name Role Phone Montrell Bardales MD Primary Care Prov ider Reason for Visit * Reason Comments Med Refill Encounter Details Date Type Department Care Team ([facility] st Contact Info) Description 12/26/2023 Refill [facility] CHC MED & PEDS [address] [place], [place] [phone] Montrell Bardales MD [address] [place] [address] Primary hypertension Social History Tobacco Use Types Packs/Day Years Used Date Smoking Tobacco: Former Cigarettes 0.2 42.3 S tarted: 1983 Smokeless Tobacco: Never Alcohol Use Standard Drinks/Week Comments Not Currently 0 (1 standard drink = 0.6 oz pur e alcohol) Depression Answer Date Recorded Patient Health Questionnaire-9 Score 14 06/20/2023 Housing Stability Answer Date Recorded What is your housing situation today? I have wagner cheek 09/03/[address] you li ve. Do you have problems with any of the following? None of the above 09/03/2023 Food Insecurity Answer Date Recorded Within the [...] [facility] [address] [place] [address] Montrell Bardales MD [address] [place] [address] documented as of this encounter Visit Diagnoses Diagnosis Primary hypertension Unspecified essential hypertension documented in this encounter Additional Health Concerns Assessment Noted Time PHQ-9 Depression Total Score: 14 023 9:04 AM EDT documented as of this encounter Care Teams Loaf Counter Relationship Specialty Start Date End Date Montrell Bardales MD [address] [place] [address] PCP - General Internal Medicine 04/18/20 documented as of this encounter
--- OUTSIDE RECORDS SUMMARY | 2025-03-02 13:22 | XMS_ITS | Encounter Summary ---
Author Organization [employer] [facility] Address [address] [facility] 7t [place] [address] Care Team Providers Care Regional Merchandising Manager Name Role Phone Montrell Bardales MD Primary Care Prov ider Encounter Details Date Type Department Care Team (Late Contact Info) Description 11/30/2022 Orders Only [facility] MED & PEDS [address] [place], [place] [phone] Yashira Donaldson LPN Social History Tobacco Use Types Packs/Day Years Used Date Smoking Tobacco: Never Assessed Comments Unknown Sex and Gender Information Value Date Recorded Sex Assigned at Female 09/18/2022 10:20 AM EDT Legal Sex Female 10:20 AM EDT Gender Identity Female 09/18/2022 10:20 AM EDT Sexual Orientation Choose not to disclose 2021 10:20 AM EDT COVID-19 Exposure Response Date Recorded In the last 10 days, have yo u been in contact with someone who was confirmed or suspected to have Coronavirus/COVID-19? No / Unsure 11/27/2022 9:54 AM EST documented as of this encounter Plan of Treatment Upcoming Encounters Date Type Department Care Team (Late st Contact Info) Description 03/10/2025 9:00 AM EDT Office Visit [facility] MED & PEDS [address] [place], [place] [phone] Montrell Bardales MD [address] [place] [address] documented as of this encounter Visit Diagnoses Not on filedocumented in this encounter Care Teams Regional Merchandising Manager Relationship Specialty Start Date End Date Montrell Bardales MD [address] [place] [address] PCP - General Internal Medicine 04/18/20 documented as of this encounter
== END 2025-03-02 12:10 | disposition home or self-care (01) ==
PROVIDERS: Emergency Provider Emergency Medicine; PCP Internal Medicine
DX: M65.331 Trigger finger, right middle finger (principal); F17.210 Nicotine dependence, cigarettes, uncomplicated; Z79.899 Other long term (current) drug therapy
CPT/HCPCS: 29130; 73140; 99282; 99283; 99284

== ENCOUNTER → 2025-03-02 09:51 | Outpatient (BNV) | payer MEDICAID, SELFPAY | PROVIDERS: PCP Internal Medicine; Visit Provider Radiology Diagnostic Radiology | DX: M85.841 Other specified disorders of bone density and structure, right hand (principal) | CPT/HCPCS: 73140 ==

== ENCOUNTER 2025-03-25 09:52 | Outpatient (REF) | payer MEDICAID, SELFPAY ==
--- OUTSIDE RECORDS SUMMARY | 2025-03-25 10:51 | XMS_ITS | Encounter Summary ---
Author Organization [employer] Address [address] [facility] 7t [place] [address] Care Team Providers Care Recruitment Consultant Name Role Phone Montrell Bardales MD Primary Care Prov ider Reason for Visit * Reason Comments Med Refill Encounter Details Date Type Department Care Team ([facility] st Contact Info) Description 12/26/2023 Refill [facility] CHC MED & PEDS [address] [place], [place] [phone] Montrell Bardales MD [address] [place] [address] Primary hypertension Social History Tobacco Use Types Packs/Day Years Used Date Smoking Tobacco: Former Cigarettes 0.3 42.3 S tarted: 1983 Smokeless Tobacco: Never [...] Care Team (Late st Contact Info) Description 06/15/2025 9:30 AM EDT Telemedicine [facility] MED & PEDS [address] [place] [address] Montrell Bardales MD [address] [place] [address] documented as of this encounter Visit Diagnoses Diagnosis Primary hypertension Unspecified essential hypertension documented in this encounter Additional Health Concerns Assessment Noted Time PHQ-9 Depression Total Score: 14 023 9:04 AM EDT documented as of this encounter Care Teams Recruitment Consultant Relationship Specialty Start Date End Date Montrell Bardales MD [address] [place] [address] PCP - General Internal Medicine 04/18/20 documented as of this encounter
--- OUTSIDE RECORDS SUMMARY | 2025-03-25 10:52 | XMS_ITS | Data Portability ---
Author Organization [place] - [facility], Allergy Address [address] [place] [phone] Care Team Providers Care Alcohol And Drug Counselor Name Role Phone SHUBHAM VAZQUEZ Primary Care Provider [phone] Assessment Encounter Date Assessment Date Assessment LastModified [...] referral - Appt 09/05 @ 1pm. Needs pitcairn islander interpret er. 2023 024 [email or web address] 2 [facility], [address] [facility], 1st Floor, [place], [address], 15:28:49 Procedures None recorded. Surgeries None recorded. Imaging None recorded. Medication Orders None recorded. Patient TargetsNo targets recorded. Patient InstructionsNo instructions recorded. Reason for Referral Physical Therapist Referral for Pain of left temporomandibular joint Appt 09/05 @ 1pm. Needs pharmacy affairs assistant. Referring Physician: Jere Allen, Otolaryngology, Encounter Date: 08/27/2024 Problems Name Problem SNOMED Code Status Onset Date Resolution Date Notes Provider Name and Address Organization Details Recorded Time Otalgia of left ear 2651657074 Active 2023 JERE ALLEN MD 100 [facility] 100, [place], [address], [facility] 4 15:23:35 Pain of left temporomand ibular joint 4123892478242 9107 Active 2023 JERE ALLEN MD 100 [facility] [address], [place], [address], [facility] 4 15:23:44 Problem Notes None recorded. Medical Equipment None Reported. Allergies Allergen ID Allergen Name Allergen Category Reaction Reaction Severity Criticality Documentation Date Start Date Code Code System Note Provider Name and Address Organization Details Recorded Time 202958 Product containin g penicilli n (product) medicatio n Not available Not available Not available 08/27/2024 60769 8001 SNOMED Charo Rody [facility] 15:06:31 Medications Name Sig Start Date [...] Updated DateTime 08/27/2024 165.1 cm 31 kg/m2 60895.18 g Charo Fine [place] - [facility] 08/27/2024 15:05:25 Social History None recorded. Functional Status None recorded. Mental Status None recorded. Family History Nothing Reported. Medical History Condition Response Migraines Y Arthritis Y Anxiety Y Depression Y Gynecological HistoryNo gynecological history recorded. Obstetrics History GPAL:G 0 P 0 0 0 0 Past Encounters Encounter ID Performer Location Encounter Start Date Encounter Closed Date Diagnosis/Indication Diagnosis SNOMED-CT Code Diagnosis ICD10 Code Diagnosis Note [id number] JERE ALLEN MD [facility] [address] [address] 08/27/2024 14:26:09 08/27/2024 15:26:00 Otalgia of left ear 5172402190 H92.02 Pain of le ft temporomandibular joint 5814330685 7540996 M26.622 Health Concerns Section Related Observation LastModified by Organization Detai ls LastModified Time None Recorded Concern Status LastModified by Organization Details LastModified Time None Recorded Advance Directives Directive None Recorded Payers Insurance Date Sequence Insurance Name Policy Number Policy Logan Covered Member ID Logan Member ID Guarantor Name 08/27/2024 1 [place]: [facility] Irena Vazquez [id number] Irena Vazquez Notes Date Note Type Note Provider Name and Address Organization Details Recorded Time 08/27/2024 text/html ipad - spanishle ft otalgiahx of TMJonset about 03/2024had some dental work on a bridgeER visit rx some drops, then steroid drops, PO abx with no reliefwent to physical therapy but not for the jaw jointworse with yawn or chew+ nocturnal bruxism JERE ALLEN MD [address] [place] [address], [address], [place] - [facility] 08/27/2024 15:27:10 OBGyn Episode No OBEpisode recorded.
--- OUTSIDE RECORDS SUMMARY | 2025-03-25 10:52 | XMS_ITS | Encounter Summary ---
Author Organization [employer] Address [address] [facility] 7t [place] [address] Care Team Providers Care Marbleizing Machine Tender Name Role Phone Montrell Bardales MD Primary Care Prov ider Encounter Details Date Type Department Care Team (Late Contact Info) Description 08/14/2023 Orders Only [facility] MED & PEDS [address] [place], [place] [phone] Mira Hendrickson LPN Social History Tobacco Use [...] Department Care Team (Late Contact Info) Description 06/15/2025 9:30 AM EDT Telemedicine [facility] CHC MED & PEDS [address] [place] [address] Montrell Bardales MD [address] [place] [address] documented as of this encounter Visit Diagnoses Not on filedocumented in this encounter Additional Health Concerns Assessment Noted Time PHQ-9 Depression Total Score: 14 023 9:04 AM EDT documented as of this encounter Care Teams Marbleizing Machine Tender Relationship Specialty Start Date End Date Montrell Bardales MD [address] [place] [address] PCP - General Internal Medicine 04/18/20 documented as of this encounter
--- OUTSIDE RECORDS SUMMARY | 2025-03-25 10:52 | XMS_ITS | Encounter Summary ---
Author Organization [employer] Address 75 [facility] 7t [place] [address] Care Team Providers Care Personnel Quality Assurance Auditor Name Role Phone Montrell Bardales MD Primary Care Prov ider Encounter Details Date Type Department Care Team ([facility] Contact Info) Description 11/30/2022 Orders Only [facility] MED & PEDS [address] [place], [place] [phone] Yashira Donaldson LPN Social History Tobacco Use [...] Upcoming Encounters Date Type Department Care Team ([facility] Contact Info) Description 06/15/2025 9:30 AM EDT Telemedicine [facility] MED & PEDS [address] [place], [place] [phone] Montrell Bardales MD [address] [place] [address] documented as of this encounter Visit Diagnoses Not on filedocumented in this encounter Care Teams Personnel Quality Assurance Auditor Relationship Specialty Start Date End Date Montrell Bardales MD [address] [place] [address] PCP - General Internal Medicine 04/18/20 documented as of this encounter
--- OUTSIDE RECORDS SUMMARY | 2025-03-25 10:52 | XMS_ITS | Encounter Summary ---
Author Organization [employer] [facility] Address [address] [facility] 7t [place] [address] Care Team Providers Care Slip Cover Maker Name Role Phone Montrell Bardales MD Primary Care Prov ider Encounter Details Date Type Department Care Team (Late Contact Info) Description 04/06/[address] [facility] MED & PEDS [address] [place] [address] Inge Yepez LPN Social History Tobacco Use [...] Info) Description 06/15/2025 9:30 AM EDT Telemedicine [facility] MED & PEDS [address] [place] [address] Montrell Bardales MD 505 [place] [address] documented as of this encounter Visit Diagnoses Not on filedocumented in this encounter Care Teams Slip Cover Maker Relationship Specialty Start Date End Date Montrell Bardales MD [address] [place] [address] PCP - General Internal Medicine 04/18/20 documented as of this encounter
--- OUTSIDE RECORDS SUMMARY | 2025-03-25 10:52 | XMS_ITS | Clinical Summary ---
Author Organization [email or web address] Address [address] [facility] 7[address] [place] [address] Care Team Providers Care Neuropsychology Division Chief Name Role Phone Montrell Bardales MD Primary Care Prov ider Allergies Active Allergy Reactions Criticality Noted Date Comments Chlorthalidone Hives 02/28/2022 Penicillin G 03/19/2012 Medications Blood Pressure kit 1 kit in the morning. 1 kit 06/20/20 23 Active Asmanex HFA 100 MCG/ACT aerosol INHALE 1 PUFF TWICE DAILY. RINSE MOUTH AFTER USING. 13 g 5 09/02/20 24 Active docusate sodium (Colace) 100 MG capsule TAKE 1 CAPSULE BY MOUTH TWICE DAILY 180 capsule 3 09/30/20 24 Active losartan (Cozaar) 100 MG tabletIndications: Primary hypertension TAKE 1 TABLET BY MOUTH EVERY MORNING 90 tablet 3 09/30/20 24 Active atorvastatin (Lipitor) 40 MG tabletIndications: Mixed hyperlipidemia TAKE 1 TABLET BY MOUTH EVERY MORNING 90 tablet 3 09/30/20 24 Active Ventolin HFA 108 (90 Base) MCG/ACT inhaler INHALE 2 PUFFS BY MOUTH EVERY 6 HOURS NEEDED FOR WHEEZING 18 g 11 09/30/20 24 Active cyclobenzaprine (Flexeril) 10 MG tablet Take 1 tablet (10 mg) by mouth 2 times daily for 20 days. 40 tablet 10/27/20 24 Active meloxicam (Mobic) 7.5 MG tablet Take 1 tablet (7.5 mg) by mouth 2 times daily. 60 tablet 11 10/27/20 24 025 Active cholecalciferol (Vitamin D-3) 25 MCG tablet TAKE 1 TABLET BY MOUTH EVERY MORNING 90 tablet 1 11/18/20 24 Active Acetaminophen Extra Strength 500 MG tabletIndications: Pain in other joint TAKE 2 TABLETS BY MOUTH EVERY 6 HOURS NEEDED FOR PAIN OR FEVER 60 tablet 4 12/16/19 25 Active omeprazole (PriLOSEC) [address] capsuleIndications :Gastroesophageal reflux disease, unspecified whether esophagitis present TAKE 1 CAPSULE BY MOUTH EVERY MORNING 30-60 MINUTES BEFORE A MEAL 90 capsule 3 12/24/19 25 Active fluticasone (Flonase) 50 MCG/ACT nasal sprayIndications:S easonal allergies USE 2 SPRAYS IN EACH NOSTRIL EVERY DAY 48 g 1 12/24/19 25 Active SUMAtriptan (Imitrex) 50 MG tablet TAKE 1 TABLET BY MOUTH AT ONSET OF MIGRAINE. MAY REPEAT ONCE AFTER 2 HOURS IF NEEDED DO NOT EXCEED 2 DOSES EVERY 24 HOURS 9 tablet 03/18/20 25 Active SUMAtriptan (Imitrex) 50 MG tablet Take 1 tablet (50 mg) by mouth 1 (one) time if needed for migraine for up to 9 doses. May repeat dose once in 2 hours if no relief. Do not exceed 2 doses in 24 hours. 9 tablet 07/22/20 24 025 Discontinued Active Problems Problem Noted Date Diagnosed Date Trigger ring finger of right hand 03/11/2025 Assessment & Plan (03/11/2025 4:02 PM EDT): Will refer to hand surgery Physical exam 03/10/2025 Assessment & Plan (03/10/2025 9:46 AM EDT): Medical examination unremarkable, continue low sodium diet, exercise, weight monitoring, bp control target <140/90 History of tooth extraction 07/14/2024 Missing teeth, [...] screening Primary hypertension 06/20/2023 Assessment & Plan (03/10/2025 9:43 AM EDT): Controlled, keep low sodium diet and exercise as tolerated, keep bp log, target <140/90, follow up in 3 months Assessment & Plan (12/24/2024 10:13 AM EST): [...] for colon cancer 06/20/2023 Assessment & Plan (03/10/2025 9:41 AM EDT): Will send cologuard, risk vs benefits discussed Assessment & Plan (02/27/2024 12:41 PM EDT): Patient missed appointment she will call office back and book a new appointment Nonrheumatic aortic valve stenosis 06/20/2023 Hyperlipidemia 08/27/2018 Assessment & Plan (03/10/2025 9:43 AM EDT): New labs ordered for guidance of therapy, encouraged low cholesterol diet Encounters Date Type Department Care Team Description 03/16/2025 Refill [facility] [address] [place] [address] Montrell Bardales MD 03/10/2025 9:00 AM EDT Office Visit [facility] [address] [place] [address] Montrell Bardales MD Screening-pulmonar y TB (Primary Dx); Screening for colon cancer; Primary hypertension; Mixed hyperlipidemia; Physical exam; Trigger ring finger of right hand 03/10/2025 Travel 03/02/2025 Orders Only [facility] External Provider, [facility] 02/27/2025 Patient Outreach [facility] [address] [place] [address] Montrell Bardales MD Pre-visit Planning (Pre visit planning unable to LVM ) 01/30/2025 Population Health Risk Score [facility] Department [address] [phone] Provider, Population Health Generic from Last 3 Months Immunizations Name Administration [...] Tobacco: Former Cigarettes 0.3 42.3 S tarted: 1982 Smokeless Tobacco: Never Tobacco Cessation:Counseling Given: Not Answered Alcohol Use Standard Drinks/Week Comments Not Currently 0 (1 standard drink = 0.6 oz pur e alcohol) Depression Answer Date Recorded Patient Health Questionnaire-9 Score 18 03/10/2025 Patient Health Questionnaire-9 Score 18 03/10/2025 Last PHQ-9: Questionnaire Data Not on file 0 03/10/2025 Housing Stability Answer Date Recorded What is [...] Answer Date Recorded Patient Health Questionnaire-2 Score 2 03/10/2025 Comments Unknown Sex and Gender Information Value Date Recorded Sex Assigned at Female 09/18/2022 10:20 AM EDT Legal Sex Female 10:20 AM EDT Gender Identity Female 09/18/2022 10:20 AM EDT Sexual Orientation Choose not to disclose 2021 10:20 AM EDT Last Filed Vital Signs Vital Sign Reading Time Taken Comments Blood Pressure 135/79 03/10/2025 9:10 AM EDT Pulse 88 03/10/2025 9:10 AM EDT Temperature 36.9 ??C (98.5 ??F) 03/10/2025 9:10 AM ED T Respiratory Rate 20 03/10/2025 9:10 AM EDT Oxygen Saturation 99% 03/10/2025 9:10 AM EDT Inhaled Oxygen Concentration - - Weight 81 kg (178 lb 9.6 oz) 03/10/2025 9:10 AM EDT Height 164 cm (5' 4.57 ) 03/10/2025 9:10 AM EDT Body Mass Index 30.12 03/10/2025 9:10 AM EDT Plan of Treatment Upcoming Encounters Date Type Department Care Team (Late st Contact Info) Description 06/15/2025 9:30 AM EDT Telemedicine [facility] [address] [place], [place] [phone] BainsMontrell Mendoza MD [address] [place], [place] [phone] Health Maintenance Due Date Last Done Comments CT Colonography 1965 Colonoscopy 1965 Colorectal Cancer Screening 1965 FIT DNA/Cologuard 1965 FIT 1965 FOBT 1965 Sigmoidoscopy 1965 Pneumococcal Vaccine: 50+ Years [...] Additional history exists SDOH Screening 01/22/2025 01/23/2024 Tobacco Screening 07/14/2025 07/14/2024 Alcohol/Substance Use Screening 03/10/2026 03/10/2025 Depression Screening 03/10/2026 03/10/2025, 03/10/20 Mammogram 03/17/2026 03/17/2024, 05/19, 07/12/2018 DTaP/Tdap/Td Vaccines (2 - Td or Tdap) 06/13/2026 06/13/2016 Dental X-Ray: Full Mouth 06/13/2027 06/12/2024, 07/20 Lipid Panel 03/05/2029 03/05/2024, 11/0 07/2023, 02/03/2022, Additional history exists HIV Screening 03/02/2034 Zoster Vaccines Completed 03/20/2022, 05/13/2021 Hepatitis C [...] EDT Narrative 03/02/2025 10:25 AM EDT ? [facility] ?[address] ?[place] [address] ?XRay Report ? Signed ? Patient: Irena Rivers ?MR# ?? : [id number] ? : 1965 ?Acct:[id number] ? Age/Sex: 59 / F ?ADM Date: 03/02/25 ? Loc: HO.ED ? Attending Dr: ? Ordering Physician: Ana Villagran ?? Date of Service: 03/02/25 ?? Procedure(s): XR finger RT min 2V ?? Accession Number(s): [id number] ? cc: Montrell Bardales MD; Ana Villagran [...] DD/ 1007 ? TD/TT: 03/02/25 1013 ? Director Federal: ? Procedure Note Donotuseinterpreter, Image - 03/02/[address] [address] XRay Report Signed Patient: Irena Rivers MMR# : [id number] : 1965Acct:[id number] Age/Sex: 59 / FADM Date: 03/02/25 Loc: HO.ED Attending Dr: Ordering Physician: Ana Villagran Date of Service: 03/02/25 Procedure(s): XR finger RT min 2V Accession Number(s): [id number] cc: Montrell Bardales MD; Ana Villagran EXAMINATION: [...] 03/02/25 1022 DD/ 1007 TD/TT: 03/02/25 1013 Director Federal: [facility] External Provider IMG XR PROCEDURES Edited Result - Final * BI Mammogram Screening Tomosynthesis Bilateral (03/17/2024 12:00 PM EDT) Anatomical Region Laterality Modality Breast Bilateral Mammography 03/17/2024 12:0 0 PM EDT Narrative 04/13/2024 6:18 AM EDT ? [place] [facility] ? [address] ?[place] [address] ? Mammography Report ? Signed ? Patient: Alex Connor,Irena M ?MR# ?? : [id number] ? : 1965 ?Acct:[id number] ? Age/Sex: 58 / F ?ADM Date: 03/17/24 ? Loc: HO.MAMMO ? Attending Dr: Montrell Connor MD ? Ordering Physician: Montrell Bardales MD ?Res ?? ults: 1Negative ? Date of Service: 03/17/24 ?Follow Up: 1 Year From Orig ?? inal Mammogram ? Procedure(s): MM tomosynthesis screening BI ?? Accession Number(s): [id number] ? cc: Montrell Bardales MD ? EXAMINATION: [...] 04/13/[address] ? DD/ 1200 ? TD/TT: ? Director Federal: ? Procedure Note Donotcarolinterpreter, Image - 04/13/2024 Anali [facility] [address] [place], [place] [address] Mammography Report Signed Patient: Irena Rivers MMR# : [id number] : 1965Acct:[id number] Age/Sex: 58 / FADM Date: 03/17/24 Loc: HO.MAMMO Attending Dr: Montrell Connor MD Ordering Physician: Montrell Bardales ults: 1Negative Date of Service: 03/17/24Follow Up: 1 Year From Orig inal Mammogram Procedure(s): MM tomosynthesis screening BI Accession Number(s): [id number] cc: Montrell Bardales MD EXAMINATION: MM SCREENING [...] in OV> 04/13/24 0614 DD/ 1200 TD/TT: Director Federal: us Montrell Connor MD IMG BI PROCEDURES Final Result * Hepatitis C Antibody with Reflex to HCV, RNA, Quantitative, Real-Time PCR (03/05/2024 10:27 AM EDT) Hepatitis C Antibody Nonreactive Nonreactive [facility] Comment:Antibodies to HCV no t detected; does not exclude early acuteHCV infection. Blood Venous blood specimen / Unknown 03/05/2024 10:27 AM EDT 03/05/2024 11:23 AM EDT us Montrell Connor MD LAB BLOOD ORDERABL ES Final Result [facility] [address] [place] [phone] * (ABNORMAL) Lipid Panel, Standard (03/05/2024 10:27 AM EDT) Triglycerides 94 <150 mg/dL [facility] Comment:Desirable Triglyceri de: less than 150 mg/dLBorderline High Triglyceride 150-199 mg/dLHigh Triglyceride: 200-499 mg/dLVery High Triglyceride: greater than or equal to 5OO mg/dL Cholesterol 125 <200 mg/dL [facility] Comment:Desirable Cholestero l: less than 200 mg/dLBorderline High Cholesterol: 200-239 mg/dLHigh Cholesterol: greater than 239 mg/dL LDL Cholesterol Calculated 74 <100 mg/dL [facility] Comment:Desirable LDL: less than 100 mg/dLNear Optimal/Above Optimal LDL: 110- 129 mg/dLBorderline High LDL: 130-159 mg/dLHigh LDL: 160-189 mg/dLVery High LDL: greater than or equal to 190 mg/dL HDL Cholesterol 33(L) >40 mg/dL [facility] Comment:Desirable HDL: great er than 40 mg/dL Note: This HDL assay may give artificially low results in patients with liver disease. Blood Venous blood specimen / Unknown 03/05/2024 10:27 AM EDT 03/05/2024 11:23 AM EDT Montrell Connor MD LAB BLOOD ORDERABL ES Final Result [facility] [address] [place] [address] [phone] from Last 3 Months or Most Recently Relevant to Health Maintenance Insurance [facility] ST[facility] ADULT Care Teams Neuropsychology Division Chief Relationship Specialty Start Date End Date Montrell Bardales MD [address] [place] [id number] PCP - General Internal Medicine 04/18/20
--- OUTSIDE RECORDS SUMMARY | 2025-03-25 10:52 | XMS_ITS | Encounter Summary ---
Author Organization [employer] Address [address] [facility] 7t [place] [address] Care Team Providers Care Aquatic Scientist Name Role Phone Montrell Bardales MD Primary Care Prov ider Encounter Details Date Type Department Care Team ([facility] Contact Info) Description 05/09/2023 Orders Only [facility] [address] [place] [address] Montrell Bardales MD [address] [place] [address] Social History Tobacco Use Types Packs/Day Years [...] Upcoming Encounters Date Type Department Care Team ([facility] Contact Info) Description 06/15/2025 9:30 AM EDT Telemedicine [facility] [address] [place] [address] Montrell Bardales MD [address] [place], [place] [phone] documented as of this encounter Visit Diagnoses Not on filedocumented in this encounter Care Teams Aquatic Scientist Relationship Specialty Start Date End Date Montrell Bardales MD [address] [place] [address] PCP - General Internal Medicine 04/18/20 documented as of this encounter
[2025-03-25 11:06] LABS: MANUAL DIFF FLAG NO
[2025-03-25 11:30] LABS: Basophils Percent Auto 0.5 % (0-2); Eosinophils Absolute Auto 0.2 X10*3/uL (0.0-0.4); Eosinophils Percent Auto 2.4 % (0-4); Hemoglobin 14.5 g/dl (12.0-16.0); Imm Gran Abs Auto 0.02 X10*3/uL (0.00-0.03); Imm Gran Pct Auto 0.3 % (0.0-0.4); Lymphocytes Absolute Auto 2.6 X10*3/uL (1.2-4.9); Lymphocytes Percent Auto 33.3 % (20-40); Mean Corpuscular Hemoglobin 31.5 pg (27.0-33.0); Mean Corpuscular Volume 95.7 fL (80.0-98.0); Monocytes Absolute Auto 0.6 X10*3/uL (0.1-1.2); Monocytes Percent Auto 7.2 % (2-11); Neutrophils Absolute Auto 4.3 x10*3/uL (2.0-8.3); Neutrophils Percent Auto 56.3 % (45-73); Platelet Count 316 X10*3/uL (160-400); Red Cell Distribution Width 12.8 % (11.0-16.0); White Blood Count 7.7 X10*3/uL (4.8-10.8)
[2025-03-25 12:13] LABS: Alanine Aminotransferase 22 U/L (0-31); Albumin Level 4.4 g/dL (3.5-5.0); Alkaline Phosphatase 68 U/L (39-117); Anion Gap 12 (12-20); Aspartate Amino Transferase 19 U/L (5-31); Bilirubin Total 0.7 mg/dL (0.0-1.0); Blood Urea Nitrogen 9 mg/dL (9-16); Calcium 9.2 mg/dL (8.4-10.2); Carbon Dioxide 27 mmol/L (22-29); Chloride 108 mmol/L (96-108); Cholesterol 121 mg/dL (<200); Estimated Glomerular Filt Rate > 60; Glucose Random 86 mg/dL (60-115); HDL Cholesterol 36 mg/dL (>40); LDL Cholesterol Calculated 73 mg/dL (<100); Potassium 4.2 mmol/L (3.3-5.1); Sodium 143 mmol/L (135-145); Triglycerides 62 mg/dL (<150)
[2025-03-25 12:28] LABS: TSH reflex Free T4 1.06 uIU/mL (0.32-4.0)
[2025-03-28 09:54] LABS: TSpotTB Invalid (Negative)
== END 2025-03-25 09:53 | disposition home or self-care (01) ==
LOC: HO.HHCL 09:52
PROVIDERS: Visit Provider Internal Medicine
DX: Z11.1 Encounter for screening for respiratory tuberculosis (principal); I10 Essential (primary) hypertension
CPT/HCPCS: 36415; 80053; 80061; 84443; 85025; 86481

== ENCOUNTER 2025-04-28 11:14 | Outpatient (REF) | payer MEDICAID, SELFPAY ==
[2025-05-01 20:24] LABS: TS Negative Control Passed; TS Panel A 0; TS Panel B 0; TS Positive Control Passed; TSpotTB Negative (Negative)
== END 2025-04-28 11:15 | disposition home or self-care (01) ==
LOC: HO.HHCL 11:14
PROVIDERS: Visit Provider Internal Medicine
DX: Z11.1 Encounter for screening for respiratory tuberculosis (principal)
CPT/HCPCS: 36415; 86481

== ENCOUNTER 2025-06-04 12:53 | Outpatient (AMB) | payer MEDICAID, SELFPAY ==
[2025-06-04 13:17] VITALS: BMI 29.6
--- NOTE | 2025-06-04 13:17 | MHC.OFFVIS ---
Vital Signs 06/04/25 13:17 Height 5 ft 5 in Weight 178 lb BMI 29.6 Intake Visit Reasons: New prob- rt MF trig finger Intake Note: Irena 60 yr old right hand dominant female presents today for a new problem visit for her right middle finger trigger pain. States her finger is locking and catching for the last 2-3 months months and has not improved. Patient is interested in injection. Denies numbness or tingling in fingers. Allergies Penicillins Allergy (Severe, Verified 06/04/25 13:23) RASH, SWELLING HPI HPI New prob- rt MF trig finger: Details: Irena 60 yr old right hand dominant female presents today for a new problem visit for her right middle finger trigger pain. States her finger is locking and catching for the last 2-3 months months and has not improved. Patient is interested in injection. Denies numbness or tingling in fingers. [facility] Medical History (Updated 06/04/25 @ 17:25 by ADAM Jiménez) Nicotine dependence, cigarettes, uncomplicated Mood disorder Benzodiazepine dependence HTN (hypertension) Migraine without status migrainosus, not intractable Mild persistent asthma without complication Vitamin D deficiency Unspecified hemorrhoids Obesity, unspecified Dependent edema Hypoglycemia Surgical History Status post insertion of nerve stimulator History of History of tonsillectomy History of colonoscopy History of hemorrhoidectomy History of total abdominal hysterectomy and bilateral salpingo-oophorectomy Social History Patient Tobacco Use Status: Current everyday Tobacco user Tobacco use type: Cigarette Years Smoked: (onset 14yo, 1/2pd x 45yrs - now 1-2cig/day - 20pyh) Substance Use Type: Crack/Cocaine and Marijuana Current occupational status: disabled Current occupation: right handed Review of Systems Const All systems reviewed & are unremarkable except as noted in HPI and below Physical Exam Vital Signs: BMI result Body Mass Index 29.6 Extrem Other: Patient is alert, oriented, and in no acute distress. Neuro: Normal sensation of the tips of all digits of the right hand at this time Vascular: Cap refill brisk Pain: Significant tenderness to palpation of A1 niraj of R MF Borderline intractable pain of right middle finger when finger is released from locked position ROM: Visible and palpable locking and catching of the right middle finger in flexed position Patient is able to flex and extend all other digits of the right hand fully and without difficulty Skin: No lacerations or abrasions. General: No ecchymosis, erythema, or evidence of infection. Psych: Appears grossly normal Affect normal Attitude cooperative Assessment & Plan Assessment & Plan (1) Trigger finger, right middle finger: Code(s): M65.331 - Trigger finger, right middle finger Category: Medical Plan 1. Right middle finger trigger finger I educated the patient about the condition. I discussed both operative and nonoperative treatment options. The patient would like to proceed with surgery. The risks and benefits of operative treatment were discussed with the patient and the patient wishes to proceed with surgery. These risks include, but are not limited to, risk of damage to blood vessels, nerves, tendons, infection, recurrence, incomplete relief of preoperative symptoms, persistent pain, possible need for further surgery, and the risks associated with regional blocks and/or anesthesia. Plan is to take the patient to the operating room at some point in the next few weeks for the following procedures: 1. Right middle finger trigger release under local All of the preoperative paperwork including the consent was discussed today. All of the patient's questions were answered in the clinic today. The patient understands that they will be in contact with our neurosurgical nurse practitioner to discuss scheduling their procedure. Patient denies diabetes, blood thinners, asthma, heart issues, lung issues, kidney issues, or current smoking. Coding Level of Care Code New Pt Level 4 (37565) Diagnoses Trigger finger, right middle finger M65.331
--- OUTSIDE RECORDS SUMMARY | 2025-06-04 13:17 | XMS_ITS | Data Portability ---
Author Organization [place] [facility], Allergy Address [address] [address] Care Team Providers Care Dry Chain Offbearer Name Role Phone VAZQUEZ, SHUBHAM Primary Care Provider Assessment Encounter Date Assessment [...] referral - Appt 09/05 @ 1pm. Needs hebrew interpret er. 2023 024 2 [facility], [address] [facility], 1st [place], [place], [address], 15:28:49 Procedures None recorded. Surgeries None recorded. Imaging None recorded. Medication Orders None recorded. Patient TargetsNo targets recorded. Patient InstructionsNo instructions recorded. Reason for Referral Physical Therapist Referral for Pain of left temporomandibular joint Appt 09/05 @ 1pm. Needs oxygen therapist. Referring Physician: Jere Plosky, Otolaryngology, Encounter Date: 08/27/2024 Problems Name Problem SNOMED Code Status Onset Date Resolution Date Notes Provider Name and Address Organization Details Recorded Time Otalgia of left ear 2925347801 Active 2023 JERE HERNANDEZ MD 100 [facility], [place], [phone], [facility] 15:23:35 Pain of left temporomand ibular joint 4335507113646 9107 Active 2023 JERE HERNANDEZ MD 100 [facility], [place], [phone], [facility] 15:23:44 Problem Notes None recorded. Medical Equipment None Reported. Allergies Allergen ID Allergen Name Allergen Category Reaction Reaction Severity Criticality Documentation Date Start Date Code Code System Note Provider Name and Address Organization Details Recorded Time 127161 Product containin g penicilli n (product) medicatio n Not available Not available Not available 08/27/2024 82300 8001 SNOMED Charo Rody [facility] 15:06:31 Medications Name Sig Start Date [...] Updated DateTime 08/27/2024 165.1 cm 31 kg/m2 27640.18 g Charo Fine [place] - [facility] 08/27/2024 15:05:25 Social History None recorded. [...] SNOMED-CT Code Diagnosis ICD10 Code Diagnosis Note [id number] JERE HERNANDEZ MD [facility] [address] [address] 08/27/2024 14:26:09 08/27/2024 15:26:00 Otalgia of left ear 9094419556 H92.02 Pain of le ft temporomandibular joint 3868621917 1688902 M26.622 Health Concerns Section Related Observation LastModified by Organization Detai ls LastModified Time None Recorded Concern Status LastModified by Organization Details LastModified Time None Recorded Advance Directives Directive None Recorded Payers Insurance Date Sequence Insurance Name Policy Number Policy Logan Covered Member ID Logan Member ID Guarantor Name 08/27/2024 1 [place] [facility] Irena Vazquez [id number] Irena Vazquez Notes Date Note Type Note Provider Name and Address Organization Details Recorded Time 08/27/2024 text/html ipad - spanishle ft otalgiahx of TMJonset about 03/2024had some dental work on a bridgeER visit rx some drops, then steroid drops, PO abx with no reliefwent to physical therapy but not for the jaw jointworse with yawn or chew+ nocturnal bruxism JERE HERNANDEZ MD [address] [place] [address], [phone], [place] [facility] 08/27/2024 15:27:10 OBGyn Episode No OBEpisode recorded.
--- OUTSIDE RECORDS SUMMARY | 2025-06-04 13:17 | XMS_ITS | Encounter Summary ---
Author Organization [employer] Address [address] [facility] 7t [place] [address] Care Team Providers Care Automobile Repair Service Estimator Name Role Phone Montrell Bardales MD Primary Care Prov ider Reason for Visit * Reason Comments Med Refill Encounter Details Date Type Department Care Team ([facility] st Contact Info) Description 12/26/2023 Refill [facility] [address] [place], [place] [phone] Montrell Bardales MD [address] [place] [address] Primary hypertension Social History Tobacco Use Types Packs/Day Years Used Date Smoking Tobacco: Former Cigarettes 0.3 42.5 S tarted: 1983 Smokeless Tobacco: Never Alcohol [...] Info) Description 06/15/2025 9:30 AM EDT Telemedicine [facility] [address] [place] [address] Montrell Bardales MD [address] [place] [address] documented as of this encounter Visit Diagnoses Diagnosis Primary hypertension Unspecified essential hypertension documented in this encounter Additional Health Concerns Assessment Noted Time PHQ-9 Depression Total Score: 14 023 9:04 AM EDT documented as of this encounter Care Teams Automobile Repair Service Estimator Relationship Specialty Start Date End Date Montrell Bardales MD [address] [place] [address] PCP - General Internal Medicine 04/18/20 documented as of this encounter
== END 2025-06-04 13:38 | disposition home or self-care (01) ==
LOC: HO.HOS 12:53
PROVIDERS: PCP Internal Medicine
DX: M65.331 Trigger finger, right middle finger (principal)
CPT/HCPCS: 99204

== ENCOUNTER → 2025-06-04 12:53 | Outpatient (BNVA) | payer MEDICAID, SELFPAY | PROVIDERS: PCP Internal Medicine | DX: M65.331 Trigger finger, right middle finger (principal) | CPT/HCPCS: 99212 ==

== ENCOUNTER 2025-06-18 09:52 | Day surgery (SDC) | payer MEDICAID, SELFPAY ==
[2025-06-18 10:06] VITALS: BMI 29.3
[2025-06-18 10:25] VITALS: BP 148/76; PULSE 93; RESP 16; TEMP 36.4; O2SAT 98
--- NOTE | 2025-06-18 11:56 | P.OP_ITS ---
Operative Note Operative Note Date of Service: 06/18/25 Narrative: Operative Note Preop diagnosis: 1. Right middle finger Trigger finger Postop diagnosis: Same Procedure: 1. Right middle finger A1 niraj release Surgeon: Maura Rendon MD Photo Print Specialist: Tirso MEDINA Anesthesia: local block using 1% lidocaine with epinephrine Findings: No locking or catching after A1 niraj release EBL: Less than 5 mL Tourniquet time: None Specimens: None Complications: None Disposition: Brought to recovery room in stable condition Plan: Follow-up for 10-14 days for wound check and suture removal Indications: The patient is 60 years old, with a right middle finger trigger finger that has been unresponsive to nonoperative management. The risks and benefits of operative treatment including but not limited to risk of damage to blood vessels, nerves, tendons, infection, persistent pain, persistent symptoms, recurrence or possible need for additional surgery were discussed with the patient and the patient wishes to proceed with surgery. Procedure: Once consent was obtained a local block was performed in the preop area using a combination of 1% lidocaine with epinephrine. The patient was then brought back to the operating suite and placed on the operative table in supine position. The right upper extremity was prepped and draped in a standard surgical fashion. Once assured that we had a good block, a 1.5 cm oblique incision was made cent ered over the A1 niraj of the right middle finger . The incision was made through the skin to the subcutaneous tissues using a #15 blade. Careful dissection was made down to the level of the A1 niraj using tenotomy scissors, with care being taken to protect the nearby neurovascular structures. A longitudinal incision was made in the A1 niraj 1st using a #15 blade, then using tenotomy scissors under direct visualization. The A1 niraj was noted to be thickened. Following our A1 niraj release, we no longer saw any locking or catching of the digit with flexion and extension. Once satisfied with our A1 niraj release the wound was copiously irrigated with normal saline and hemostasis was obtained with a brief period of local pressure. The skin edges were reapproximated with some 5.0 nylon suture material and a sterile dressing was applied. The patient appears to have tolerated the procedure well and with no complications. All digits were well vascularized at the conclusion of the case.
--- NOTE | 2025-06-18 11:56 | MHC.SHP ---
Pre-Procedural Eval Section A - 24 Hr Update-Section A only Date of Service: 06/18/25 The patient is an INPATIENT: No Changes since office visit: No Cold of Flu in the past 2 weeks, No New Medical Problems, No Changes in Medication and No Patient answered all questions The patient has been examined within 24 hours of the surgical procedure. The History & Physical has been completed within 30 days and I have reviewed it.: Yes Section B - Complete if H&P > 30 days Chief Complaint: Trigger finger, right middle finger Allergies: Allergies Allergy/AdvReac Type Severity Reaction Status Date / Time Penicillins Allergy Severe RASH, Verified 06/04/25 13:23 SWELLING Plan I have reviewed the history and physical and performed a pertinent physical examination on my patient. No changes have occurred unless specified. Time Spent With Patient Time: Total time managing care of this patient today ____ minutes.
[2025-06-18 12:26] VITALS: BP 136/67; PULSE 80; RESP 15; O2SAT 97
== END 2025-06-18 12:39 | disposition home or self-care (01) ==
PROVIDERS: PCP Internal Medicine; Visit Provider Orthopaedic Surgery
PROC: (CPT 26055; principal; 2025-06-18 11:20)
DX: M65.331 Trigger finger, right middle finger (principal); I10 Essential (primary) hypertension; J45.40 Moderate persistent asthma, uncomplicated; E55.9 Vitamin D deficiency, unspecified; R60.0 Localized edema; E16.2 Hypoglycemia, unspecified; E66.9 Obesity, unspecified; Z68.29 Body mass index [BMI] 29.0-29.9, adult; Z88.0 Allergy status to penicillin; F14.90 Cocaine use, unspecified, uncomplicated; F17.210 Nicotine dependence, cigarettes, uncomplicated; Z98.890 Other specified postprocedural states
CPT/HCPCS: 26055; J0165; J2003; J2004

== ENCOUNTER → 2025-06-18 09:52 | Outpatient (BNV) | payer MEDICAID, SELFPAY | PROVIDERS: PCP Internal Medicine; Visit Provider Orthopaedic Surgery | DX: M65.331 Trigger finger, right middle finger (principal) | CPT/HCPCS: 26055 ==

== ENCOUNTER 2025-07-01 10:00 | Outpatient (AMB) | payer MEDICAID, SELFPAY ==
[2025-07-01 10:12] VITALS: BMI 29.3
--- NOTE | 2025-07-01 10:12 | MHC.OFFVIS ---
Vital Signs 07/01/25 10:12 Height 5 ft 5 in Weight 176 lb BMI 29.3 Intake Visit Reasons: PO-Rt MF Trigger Release 06/18/25 Intake Note: Irena is a 60 year old right hand dominant female who presents today for their first post-operative visit status post right middle trigger finger release DOS:06/18/25, by Dr. Rendon. Patient complains of pain and swelling of the right middle finger. She was very anxious and hypersensitive during suture removal. Sutures removed and steri strips applied. Pulmonologist/Intensivist Required: Yes Pulmonologist/Intensivist Language: Medical Physics Teacher Services: Pulmonologist/Intensivist Present Pulmonologist/Intensivist Name: Agatha RMA/LM Allergies Penicillins Allergy (Severe, Verified 07/01/25 10:12) RASH, SWELLING HPI HPI PO-Rt MF Trigger Release 06/18/25: Details: Irena is a 60 year old right hand dominant female who presents today for their first post-operative visit status post right middle trigger finger release DOS:06/18/25, by Dr. Rendon. Patient complains of pain and swelling of the right middle finger, but states that locking and catching have resolved and then her pain is much improved from prior to surgery. She was very anxious and hypersensitive during suture removal. Sutures removed and steri strips applied. [facility] Medical History (Updated 06/04/25 @ 17:25 by ADAM Jiménez) Nicotine dependence, cigarettes, uncomplicated Mood disorder Benzodiazepine dependence HTN (hypertension) Migraine without status migrainosus, not intractable Mild persistent asthma without complication Vitamin D deficiency Unspecified hemorrhoids Obesity, unspecified Dependent edema Hypoglycemia Surgical History Status post insertion of nerve stimulator History of History of tonsillectomy History of colonoscopy History of hemorrhoidectomy History of total abdominal hysterectomy and bilateral salpingo-oophorectomy Social History Patient Tobacco Use Status: Current everyday Tobacco user Tobacco use type: Cigarette Years Smoked: (onset 14yo, 1/2pd x 45yrs - now 1-2cig/day - 20pyh) Substance Use Type: Crack/Cocaine and Marijuana Current occupational status: disabled Current occupation: right handed Review of Systems Const All systems reviewed & are unremarkable except as noted in HPI and below Physical Exam Vital Signs: BMI result Body Mass Index 29.3 Extrem Other: Patient is alert, oriented, and in no acute distress. Neuro: Normal sensation of the tips of all digits of the right hand at this time Vascular: Cap refill brisk Pain: Minimal tenderness to palpation about the incision site on over A1 niraj of right middle finger No pain with range of motion of the right middle finger ROM: There is no further visible or palpable locking and catching of the right middle finger Patient is able to flex and extend all other digits of the right hand fully and without difficulty Skin: Well approximated and well healing incision site noted over the A1 niraj of the right middle finger No lacerations or abrasions. General: No ecchymosis, erythema, or evidence of infection. Psych: Appears grossly normal Affect normal Attitude cooperative Assessment & Plan Assessment & Plan (1) Trigger finger, right middle finger: Code(s): M65.331 - Trigger finger, right middle finger Category: Medical Plan 1. Status post right middle finger trigger release DOS 06/18/2025 Patient appears to be recovering very well postoperatively Patient is educated about the typical recovery course, including no submerging for 1 more week hand 2 lb weight limit for 2 more weeks Sutures removed, Steri-Strips applied At this time, patient will require no further acute follow-up, as she appears to be recovering very well Patient understands this and is amenable to this plan Follow-up as needed Coding Level of Care Code Global (74570) Diagnoses Trigger finger, right middle finger M65.331
--- OUTSIDE RECORDS SUMMARY | 2025-07-01 10:37 | XMS_ITS | Encounter Summary ---
Author Organization [employer] Address [address] [place] [address] Care Team Providers Care Production Maintenance Technician Name Role Phone Montrell Bardales MD Primary Care Prov ider Reason for Visit * Reason Comments Med Refill Encounter Details Date Type Department Care Team ([facility] st Contact Info) Description 06/09/2025 Refill [facility] [address], [place] [phone] Montrell Bardales MD [address] [place] [id number] Pain in other joint Social History Tobacco Use Types Packs/Day Years Used Date Smoking Tobacco: Former Cigarettes 0.3 42.6 S tarted: 1983 Smokeless Tobacco: Never Alcohol [...] as of this encounter Plan of Treatment Not on file documented as of this encounter Visit Diagnoses Diagnosis Pain in other joint documented in this encounter Additional Health Concerns Assessment Noted Time PHQ-9 Depression Total Score: 18 025 9:18 AM EDT documented as of this encounter Care Teams Production Maintenance Technician Relationship Specialty Start Date End Date Montrell Bardales MD [address] [place] [id number] PCP - General Internal Medicine 04/18/20 documented as of this encounter
== END 2025-07-01 10:51 | disposition home or self-care (01) ==
LOC: HO.HOS 10:00
PROVIDERS: PCP Internal Medicine
DX: M65.331 Trigger finger, right middle finger (principal)
CPT/HCPCS: 99024

== ENCOUNTER → 2025-07-01 10:00 | Outpatient (BNVA) | payer MEDICAID, SELFPAY | PROVIDERS: PCP Internal Medicine | DX: M65.331 Trigger finger, right middle finger (principal); Z98.890 Other specified postprocedural states | CPT/HCPCS: 99212 ==